=== PATIENT | male | born 1940 | race Caucasian/White ===

== ENCOUNTER → 2017-07-22 | Outpatient (CLI) | payer OTHER, MEDICARE ==
[~2017-07-22] MED LIST: IOHEXOL 350 MG/ML 100 ML (OMNIPAQUE 350) VIAL IV ONE; NS 250 ML (IVPB) BAG IV ONE; RT-ALBUTEROL SULF 2.5 MG/3 ML PRE-MIX VIAL INH ONE
[2017-07-22 09:38] LABS: CREATININE SERUM 1.36 MG/DL (0.60-1.30)
--- NOTE | 2017-07-22 11:11 | Diagnostic Imaging Report ---
PROCEDURE: CT chest with contrast only. TECHNIQUE: Multiple contiguous axial images were obtained through the chest after administration of intravenous contrast. INDICATION: Abnormal outside chest x-ray with questionable mass. The study is performed for further evaluation. COMPARISON: The patient's outside studies are not available for direct comparison. FINDINGS: No axillary lymphadenopathy is detected. No definite hilar or mediastinal lymphadenopathy is detected. No pericardial or pleural fluid is identified. The central airways are unremarkable. There are numerous cavitary masses involving bilateral lower lobes. The largest cavitary mass is posteriorly in the superior segment of the right lower lobe measuring approximately 16 mm. There is a solid, non-cavitary mass more inferiorly in the right lower lobe which appears spiculated and measures 18 mm AP diameter. The upper abdomen is unremarkable. IMPRESSION: Spiculated right lower lobe mass, concerning for primary lung malignancy. There are numerous smaller cavitary masses within bilateral lower lobes, likely on the basis of metastatic disease. No definite hilar or mediastinal lymphadenopathy is detected. Dictated by: Dictated on workstation # [id number]
== END ==
LOC: RT 08:38
PROVIDERS: ATTEND Nurse Practitioner Family
DX: D49.1 Neoplasm of unspecified behavior of respiratory system (principal); R53.83 Other fatigue; Z72.0 Tobacco use
CPT/HCPCS: 36415; 71260; 82565; 84520; 94060; 94726; 94729

== ENCOUNTER → 2017-08-04 | Outpatient (CLI) | payer MEDICARE, OTHER ==
--- NOTE | 2017-08-04 14:40 | Diagnostic Imaging Report ---
INDICATION: Right lower lobe lung mass. Patient does have a history of bladder carcinoma. TECHNIQUE: Patient blood glucose level is 104 mg/dL at the time of the injection. The patient was administered 13 mCi of F-18 FDG intravenously, administered in the right antecubital location. PET imaging was obtained from the top of the skull to the mid thighs. In addition, noncontrast CT imaging was performed for attenuation correction and anatomic correlation. COMPARISON: No prior PET/CT studies are available for comparison. Comparison is made with the recent CT chest study from 07/22/2017. FINDINGS: There is normal symmetric uptake of activity throughout the brain. Imaging through the soft tissues of the neck does demonstrate a focus of hypermetabolism involving the posterior aspect of the left parotid gland with SUV max of 5.7. No other abnormal foci within the neck soft tissues are identified. Intense hypermetabolism is identified in the previously noted spiculated right lower lobe mass noted on recent CT. SUV max is approximately 6. Cephalad to the dominant mass in the right lower lobe is a smaller focus of hypermetabolism posteriorly with SUV max of approximately 4.6. There is also small focus noted in the medial portion of the right middle lobe with 2.6 SUV max. There is a small focus of intense hypermetabolism in the posterior left lower lobe with SUV max of 5.7. Hypermetabolic lymph node in the subcarinal location is seen with SUV max of 5.2. Low-level hypermetabolic node in the right paratracheal location is also seen with SUV max of approximately 2.9. Imaging through the abdomen demonstrates numerous hypermetabolic foci within the liver. The largest is in the inferior right lobe with SUV max of approximately 13. There are multiple additional lesions within the liver. There is also a small hypermetabolic focus in the central retroperitoneum anterior to the aorta with SUV max of approximately 5.3. Physiologic activity within the liver, spleen, and urinary tract is also noted. Imaging through the pelvis does show a small focus of hypermetabolism involving the right posterior aspect of the prostate gland with SUV max value of approximately 6.2, indeterminate. IMPRESSION: 1. Hypermetabolic spiculated mass in the right lower lobe corresponding with the CT abnormality from 07/22/2017. Numerous additional hypermetabolic foci within the pulmonary parenchyma are noted as well. Dominant lesion may represent primary lung neoplasm with additional metastatic lesions present. There are also prominent hypermetabolic nodes in the mediastinum, as described, suspicious for metastatic disease. 2. Numerous hypermetabolic foci throughout the liver, consistent with hepatic metastatic disease. 3. Indeterminate small focus of hypermetabolism involving the left parotid gland. 4. Small hypermetabolic focus involving the right lobe of the prostate. A small prostatic neoplasm cannot be entirely excluded. Dictated by: Dictated on workstation # [id number]
== END ==
LOC: RAD 08:08
PROVIDERS: ATTEND Internal Medicine Critical Care Medicine
DX: C67.9 Malignant neoplasm of bladder, unspecified (principal); D49.1 Neoplasm of unspecified behavior of respiratory system; R93.2 Abnormal findings on diagnostic imaging of liver and biliary tract; F17.200 Nicotine dependence, unspecified, uncomplicated

== ENCOUNTER 2017-08-31 06:18 | Outpatient (CLI) | payer OTHER ==
[~2017-08-31] VITALS: Ht 176.5 cm; Wt 74.8 kg
[2017-08-31] MEDS ORDERED: LOSA100T28 PO (15:47)
[2017-08-31] MEDS ORDERED: AMLO10TA2 PO (15:47)
[2017-08-31] MEDS ORDERED: VARE1TAB22 PO (15:47)
[2017-08-31] MEDS ORDERED: CLOP75TA69 PO (15:47)
[2017-08-31] MEDS ORDERED: ASPI-999 PO (15:47)
[2017-08-31] MEDS ORDERED: ONDA8TAB13 PO (15:47)
[2017-08-31] MEDS ORDERED: OMEP20CA12 PO (15:47)
[2017-08-31] MEDS ORDERED: MORP15TA69 PO (15:47)
[2017-08-31] MEDS ORDERED: ROSU10TA26 PO (15:47)
[2017-08-31] MEDS ORDERED: TRAZ100T92 PO (15:47)
== END 2017-08-31 15:54 ==
LOC: PREOP 06:18
PROVIDERS: ATTEND Internal Medicine Critical Care Medicine
DX: Z01.818 Encounter for other preprocedural examination (principal); C34.90 Malignant neoplasm of unspecified part of unspecified bronchus or lung; R91.8 Other nonspecific abnormal finding of lung field; R59.0 Localized enlarged lymph nodes; R63.0 Anorexia

== ENCOUNTER → 2017-09-04 | Day surgery (SDC) | payer MEDICARE, OTHER ==
[~2017-09-04] VITALS: Ht 176.5 cm; Wt 74.8 kg
[~2017-09-04] MED LIST changes: +AMLO10TA2 PO; +ASPI-999 PO; +CLOP75TA69 PO; +DEXAMETHASONE 10 MG/ML (DECADRON) 1 ML VIAL ONE; +GLYCOPYRROLATE 0.2 MG/ML (ROBINUL) 2 ML VIAL ONE; -IOHEXOL 350 MG/ML 100 ML (OMNIPAQUE 350) VIAL IV ONE; +LACTATED RINGERS 1,000 ML IV PRN; +LIDOCAINE 4% INJ (XYLOCAINE) 5ML AMP INJ ONE; +LIDOCAINE PF 2% 5 ML (XYLOCAINE) VIAL ONE; +LOSA100T28 PO; +MORP15TA69 PO; +NEOSTIGMINE 1 MG/ML 5 ML SYRINGE ONE; -NS 250 ML (IVPB) BAG IV ONE; +OMEP20CA12 PO; +ONDA8TAB13 PO; +ONDANSETRON 4 MG/2 ML (SDV) Z0FRAN IVP PRN; +ONDANSETRON 4 MG/2 ML (SDV) Z0FRAN ONE; +ROCURONIUM 10 MG/ML 5 ML SYRINGE IV ONE; +ROSU10TA26 PO; -RT-ALBUTEROL SULF 2.5 MG/3 ML PRE-MIX VIAL INH ONE; +SEVOFLURANE (ULTANE) 15 ML INHAL SOLN ONE; +TRAZ100T92 PO; +VARE1TAB22 PO; +fentaNYL INJECTION 100 MCG/2 ML AMP ONE; +proPOfol 200 MG/20 ML (DIPRIVAN) VIAL IV ONE
--- OUTSIDE RECORDS SUMMARY | 2017-09-04 06:32 | XMS REPORT | Clinical Summary ---
Author Author Admin, SKYLA Organization [facility] [place] Address Unknown Phone Unavailable Allergies, Adverse Reactions, Alerts Allergy Name Reaction Description Start Date Severity Status Provider HM LORATADINE Critical Active Nata Duran MD HYDROCHLOROTHIAZIDE Critical Active Nata Duran MD Conditions or Problems Problem Name Problem Code Onset Date Status Entry Date Provider Comment Standard Description Annotate Bladder CA Active Nata Duran MD Malignant neoplasm of bladder, part unspecified Hematuria Active Nata Duran MD Hematuria , unspecified Hyperlipidemia Active Paris Rodriguez APRN Other and unspecified hyperlipidemia Hypertension 401.9 Active Paris Rodriguez APRN Unspecified essential hypertension Itching of skin 698.9 Active Paris Rodriguez APRN Unspecified pruritic disorder Insomnia 780.52 Active David Nolasco MD Insomnia, unspecified Urinary incontinence 788.30 Active David Nolasco MD Urinary incontinence, unspecified Fatigue 780.79 Active Paris Rodriguez APRN Other malaise and fatigue Dizziness 780.4 Active Paris Rodriguez APRN Dizziness and giddiness Unsteady gait 781.2 Active Paris Rodriguez APRN Abnormality of gait Anemia 285.9 Active Paris Rodriguez APRN Anemia, unspecified Medication List Medication Instructions Start Date Stop Date Generic Name NDC Status Provider Patient Instruction SPIRONOLACTONE 25 MG ORAL TABLET 1 tablet by mouth daily for blood pressure SPIRONOLACTONE 59011878104 No Longer Active Paris Rodriguez APRN Active AMMONIUM LACTATE 12 % EXTERNAL LOTION use topically as directed for itching/ rash AMMONIUM LACTATE 64976988853 Active Paris Rodriguez CONNIE Active OXYBUTYNIN CHLORIDE 5 MG ORAL TABLET 1 tab po daily as needed for urinary symptoms OXYBUTYNIN CHLORIDE 15706342051 Active Paris Rodriguez QUILLER HAND Active MOMETASONE FUROATE 0.1 % EXTERNAL OINTMENT use as directed MOMETASONE FUROATE 81848272392 Active Paris Michael QUILLER HAND Active ROSUVASTATIN CALCIUM 10 MG ORAL TABLET 1 tab po for cholestrol ROSUVASTATIN CALCIUM 61716760040 Active Paris Michael CONNIE Active TRAZODONE HCL 100 MG ORAL TABLET 1 po qHS for Insomnia TRAZODONE HCL 97569674001 Active Paris Michael CONNIE Active OMEPRAZOLE 20 MG ORAL CAPSULE DELAYED RELEASE 1 cap by mouth daily OMEPRAZOLE 61100877838 Active Paris Michael QUILLER HAND Active CLOPIDOGREL BISULFATE 75 MG ORAL TABLET 1 tab po daily for hx embolism 12/10 CLOPIDOGREL BISULFATE 75036861687 Active Paris Rodriguez QUILLER HAND Active AMLODIPINE BESYLATE 10 MG ORAL TABLET 1 tablet by mouth daily for blood pressure AMLODIPINE BESYLATE 48711908529 Active Paris Michael CONNIE Active LOSARTAN POTASSIUM 100 MG ORAL TABLET 1 pill by mouth daily, for blood pressure LOSARTAN POTASSIUM 44752647438 Active Paris Rodriguez QUILLER HAND Active SPIRONOLACTONE 25 MG ORAL TABLET 1 tablet by mouth daily for blood pressure SPIRONOLACTONE 25 MG ORAL TABLET 315655 SPIRONOLACTONE Inactive Vital Signs Date Name Value Unit Range Description blood pressure, diastolic 58 mm[Hg] BP stevens blood pressure, systolic 162 mm[Hg] BP sys pulse rate E&M 56 /min Heart rate temperature E&M 98.3 [degF] Body temperature weight E&M 179 [lb_av] Weight Measured blood pressure, diastolic 70 mm[Hg] BP stevens blood pressure, systolic 189 mm[Hg] BP sys pulse rate E&M 66 /min Heart rate temperature E&M 97.6 [degF] Body temperature weight E&M 185 [lb_av] Weight Measured blood pressure, diastolic 70 mm[Hg] BP stevens blood pressure, systolic 176 mm[Hg] BP sys height E&M 69.5 [in_us] Bdy height pulse rate E&M 61 /min Heart rate temperature E&M 97 [degF] Body temperature weight E&M 184 [lb_av] Weight Measured blood pressure, diastolic 75 mm[Hg] BP stevens blood pressure, systolic 138 mm[Hg] BP sys height E&M 59.5 [in_us] Bdy height pulse rate E&M 80 /min Heart rate temperature E&M 98.6 [degF] Body temperature weight E&M 182 [lb_av] Weight Measured Diagnostic Results Date Name Value Unit Range Description Lab Report: CBC - Hematology leukocyte count, blood 7.4 10^3/MM^3 10*3/mm3 4.6-10.2 erythrocyte (RBC) count 3.38 10^6/MM^3 10*6/mm3 4.50-6.50 hemoglobin, blood 11.4 g/dL 14.0-18.0 hematocrit, blood 33.1 % 40.0-54.0 mean corpuscular volume, RBC 98 fL 80-97 mean corpuscular hemoglobin, RBC 33.8 pg 27.0-31.2 mean corpuscular hemoglobin concentration, RBC 34.4 G/DL % 31.8- 35.4 red blood cell distribution width 11.1 % 11.6-14.8 platelet count 192 10^3/MM^3 10*3/mm3 142-424 Lab Report: CBC W/DIFF, Comp. Metabolic Panel, HGBA1C, Thyroid Stimulati ... - Chemistry protein, total urine random 3+ mg/dL Negative RBC, urine, dipstick 3+ Negative sodium, serum 141 mmol/L 195-028 9808/11/29 carbon dioxide, venous blood 30.5 mmol/L 21.0-32.0 potassium, serum 4.2 mmol/L 3.5-5.2 chloride, serum 105 mmol/L 98-107 blood glucose 101 mg/dL 65-110 urea nitrogen, blood 23 mg/dL 7-18 creatinine, serum 1.35 mg/dL 0.60-1.30 alanine aminotransferase (SGPT), serum 18 U/L 12-78 aspartate aminotransferase (SGOT), serum 11 U/L 15-37 calcium, serum 7.7 mg/dL 8.5-10.1 bilirubin, serum, total 0.30 mg/dL 0.00-1.00 hemoglobin A1C, blood, as % of total hemoglobin 5.4 % 4.3-6.0 TSH 1.37 m[iU]/mL 0.36-3.74 thyroxine, serum, free 0.86 ng/dL 0.59-1.17 Lab Report: CBC W/DIFF, Comp. Metabolic Panel, HGBA1C, Thyroid Stimulati ... - Hematology leukocyte count, blood 6.6 10^3/MM^3 10*3/mm3 4.6-10.2 neutrophils as percent of blood leukocytes 67.5 % 42.2-75.2 monocytes as percent of blood leukocytes 6.0 % 1.7-9.3 lymphocytes as percent of blood leukocytes 22.2 % 20.5-51.1 erythrocyte (RBC) count 3.45 10^6/MM^3 10*6/mm3 4.50-6.50 hemoglobin, blood 11.6 g/dL 14.0-18.0 hematocrit, blood 34.1 % 40.0-54.0 mean corpuscular volume, RBC 99 fL 80-97 mean corpuscular hemoglobin, RBC 33.6 pg 27.0-31.2 mean corpuscular hemoglobin concentration, RBC 34.0 G/DL % 31.8- 35.4 red blood cell distribution width 12.2 % 11.6-14.8 platelet count 201 10^3/MM^3 10*3/mm3 142-424 Lab Report: CBC W/DIFF, Comp. Metabolic Panel, HGBA1C, Thyroid Stimulati ... - Urinalysis urine color Dark yellow Colorless;Lightyellow;Straw;Yellow appearance, urine Cloudy Clear specific gravity, urine 1.025 1.000-1.030 pH, urine, semiquantitative 6.0 5.0-8.5 urobilinogen, urine, semiquantitative (dipstick) 0.2 E.U./dL Normal leukocyte esterase, urine, by dipstick Negative Negative nitrite, urine, semiquantitative Negative Negative glucose, urine, semiquantitative Negative Negative ketones, urine, by test strip Negative Negative bilirubin, urine Negative Negative Office Visit: CN-hematuria - Chemistry protein, total urine random 2+ mg/dL RBC, urine, dipstick 3+ Office Visit: [facility]-hematuria - Urinalysis ketones, urine, by test strip negative bilirubin, urine negative glucose, urine, semiquantitative negative urine color yellow appearance, urine clear leukocyte esterase, urine, by dipstick negative nitrite, urine, semiquantitative negative urobilinogen, urine, semiquantitative (dipstick) negative protein, urine, semiquantitative (dipstick) negative pH, urine, semiquantitative 5 specific gravity, urine 1.010 urinalysis, routine Clean Catch culture status No Office Visit: [facility]--GET EST.-PER EFREN MD [id number] - Basic LDL target level 100 mg/dL Office Visit: [facility] CHO[facility]--GET EST.-PER EFREN MD [id number]-1-26-17 - Chemistry HDL cholesterol, serum, target level 40 mg/dL triglyceride, target level 150 mg/dL cholesterol, target level 200 mg/dL Encounters Code Encounter Date Provider Facility CPT-32769 Level 4 Est. Patient 16:18:08 PILLOW FILLER Paris Rodriguez [facility] CPT-60430 Level 4 Est. Patient 08:23:02 CDT David Nolasco MD [facility] CPT-32112 Level 4 Est. Patient 07:23:20 CDT Paris Rodriguez [facility] CPT-33215 Level 4 New Patient 14:19:32 CDT Nata Duran MD [facility] Procedures Code Procedure Name Date Entry Date Standard Description CPT-55008 Chest 2V Frontal and Lat - XRAY USE ONLY 14:13:50 PILLOW FILLER CPT-66255 Bladder Washing 10:54:10 CDT CPT-69673 Needle Biopsy - Prostate 14:19:32 CDT CPT-39820 Cystoscopy 14:19:32 CDT
--- OUTSIDE RECORDS SUMMARY | 2017-09-04 06:33 | XMS REPORT | Clinical Summary ---
Author Author Admin, SKYLA Organization [facility] Address Unknown Phone Unavailable Allergies, Adverse Reactions, [...] Active Paris Rodriguez APRN Abnormality of gait Medication List Medication Instructions Start Date Stop Date Generic Name NDC Status Provider Patient Instruction SPIRONOLACTONE 25 MG ORAL TABLET 1 tablet by mouth daily for blood pressure SPIRONOLACTONE 77037905674 No Longer Active Paris Rodriguez APRN Active AMMONIUM LACTATE 12 % EXTERNAL LOTION use topically as directed for itching/ rash AMMONIUM LACTATE 01584642710 Active Paris Michael FIRE ALARM INSPECTOR Active OXYBUTYNIN CHLORIDE 5 MG ORAL TABLET 1 tab po daily as needed for urinary symptoms OXYBUTYNIN CHLORIDE 98967291483 Active Paris Rodriguez APRN Active MOMETASONE FUROATE 0.1 % EXTERNAL OINTMENT use as directed MOMETASONE FUROATE 17745986819 Active Paris Rodriguez FIRE ALARM INSPECTOR Active ROSUVASTATIN CALCIUM 10 MG ORAL TABLET 1 tab po for cholestrol ROSUVASTATIN CALCIUM 34191046004 Active Paris Rodriguez FIRE ALARM INSPECTOR Active TRAZODONE HCL 100 MG ORAL TABLET 1 po qHS for Insomnia TRAZODONE HCL 30515167957 Active Paris Rodriguez APRN Active OMEPRAZOLE 20 MG ORAL CAPSULE DELAYED RELEASE 1 cap by mouth daily OMEPRAZOLE 04685092274 Active Paris Rodriguez FIRE ALARM INSPECTOR Active CLOPIDOGREL BISULFATE 75 MG ORAL TABLET 1 tab po daily for hx embolism 12/10 CLOPIDOGREL BISULFATE 30268201240 Active Paris Rodriguez FIRE ALARM INSPECTOR Active AMLODIPINE BESYLATE 10 MG ORAL TABLET 1 tablet by mouth daily for blood pressure AMLODIPINE BESYLATE 26730291764 Active Paris Rodriguez APRN Active LOSARTAN POTASSIUM 100 MG ORAL TABLET 1 pill by mouth daily, for blood pressure LOSARTAN POTASSIUM 55079258980 Active Paris Rodriguez APRN Active SPIRONOLACTONE 25 MG ORAL TABLET 1 tablet by mouth daily for blood pressure SPIRONOLACTONE 25 MG ORAL TABLET 224090 SPIRONOLACTONE Inactive Vital Signs Date Name Value [...] Value Unit Range Description Lab Report: CBC W/DIFF, Comp. Metabolic Panel, HGBA1C, Thyroid Stimulati ... - Chemistry sodium, serum 141 mmol/L 898-716 6075/11/29 carbon dioxide, venous blood 30.5 mmol/L 21.0-32.0 [...] 0.36-3.74 thyroxine, serum, free 0.86 ng/dL 0.59-1.17 protein, total urine random 3+ mg/dL Negative RBC, urine, dipstick 3+ Negative Lab Report: CBC W/DIFF, Comp. Metabolic Panel, [...] Clean Catch culture status No Office Visit: [facility]--GET EST.-PER [facility]-6-26-17 - Basic LDL target level 100 mg/dL Office Visit: [facility]--GET EST.-PER [facility] [id number] - Chemistry HDL cholesterol, serum, target level 40 mg/dL triglyceride, target level 150 mg/dL cholesterol, target level 200 mg/dL Encounters Code Encounter Date Provider Facility CPT-02637 Level 4 Est. Patient 16:18:08 BACK GRINDER Paris Rodriguez Formerly named [facility] CPT-33488 Level 4 Est. Patient 08:23:02 CDT David Nolasco MD [facility] CPT-83089 Level 4 Est. Patient 07:23:20 CDT Paris Rodriguez Formerly named [facility] CPT-64686 Level 4 New Patient 14:19:32 CDT Nata Duran MD [facility] Procedures Code Procedure Name Date Entry Date Standard Description CPT-42676 Chest 2V Frontal and Lat - XRAY USE ONLY 14:13:50 BACK GRINDER CPT-65252 Bladder Washing 10:54:10 CDT CPT-72322 Needle Biopsy - Prostate 14:19:32 CDT CPT-43612 Cystoscopy 14:19:32 CDT
--- OUTSIDE RECORDS SUMMARY | 2017-09-04 06:33 | XMS REPORT | Clinical Summary ---
Author Author Admin, SKYLA Organization [employer] Address Unknown Phone Unavailable Allergies, Adverse Reactions, Alerts Allergy Name Reaction Description Start Date Severity Status Provider ALDACTONE Critical Active Eliza Chen ENGINEER OF SYSTEM DEVELOPMENT LORATADINE Critical Active Nata Duran MD HYDROCHLOROTHIAZIDE Critical Active Nata Duran MD Conditions or Problems Problem Name Problem Code Onset Date Status Entry Date Provider Comment Standard Description Annotate Bladder CA Active Nata Duran MD Malignant neoplasm of bladder, part unspecified Hematuria Active Nata Duran MD Hematuria , unspecified Hyperlipidemia Active Paris Adamson APRN Other and unspecified hyperlipidemia Hypertension 401.9 Active Paris Adamson APRN Unspecified essential hypertension Itching of skin 698.9 Active Paris Adamson APRN Unspecified pruritic disorder Insomnia 780.52 Active David Nolasco MD Insomnia, unspecified Urinary incontinence 788.30 Active David Nolasco MD Urinary incontinence, unspecified Fatigue 780.79 Active Paris Adamson APRN Other malaise and fatigue Dizziness 780.4 Active Paris Adamson APRN Dizziness and giddiness Unsteady gait 781.2 Active Paris Adamson APRN Abnormality of gait Anemia 285.9 Active Paris Adamson APRN Anemia, unspecified Medication List Medication Instructions Start Date Stop Date Generic Name NDC Status Provider Patient Instruction CHANTIX STARTING MONTH CHAR 0.5 MG X 11 & 1 MG X 42 ORAL TABLET 0.5mg daily for 3 days, then 0.5mg BID for 4 days, then 1mg BID VARENICLINE TARTRATE 53241160413 Active J Jose Duran MD Active DAILY MULTIVITAMIN ORAL CAPSULE 1 tablet by mouth MULTIPLE VITAMINS-MINERALS 82633735223 Active Eliza Chen ENGINEER OF SYSTEM DEVELOPMENT Active [facility] MELATONIN 10 MG ORAL CAPSULE 1 tablet by mouth at bedtime MELATONIN 31910026993 Active Eliza Chen ENGINEER OF SYSTEM DEVELOPMENT Active [facility] LUTEIN CAPSULE 1 tablet once daily LUTEIN CAPS 68664688483 [facility] GLUCOS[facility] 500 MG ORAL CAPSULE 2 capsules BID GLUCOSAMINE SULFATE 60669790223 [facility] Active CARDIOSTEROL 500-32 MG ORAL CAPSULE PHYTOSTEROL ESTERS-FISH OIL 30091473681 Active Eliza Chen ENGINEER OF SYSTEM DEVELOPMENT Active ADULT ASPIRIN LOW STRENGTH 81 MG ORAL TABLET DISINTEGRATING 1 tablet once daily ASPIRIN 62409769682 Active Eliza Chen ENGINEER OF SYSTEM DEVELOPMENT Active ACETAMINOPHEN EXTRA STRENGTH 500 MG ORAL CAPSULE as needed ACETAMINOPHEN 70813303850 [facility] Active OXYBUTYNIN CHLORIDE 5 MG ORAL TABLET 1 tab po daily as needed for urinary symptoms OXYBUTYNIN CHLORIDE 45985459220 No Longer Active Eliza Chen LPN Active AMMONIUM LACTATE 12 % EXTERNAL LOTION use topically as directed for itching/ rash AMMONIUM LACTATE 60753479804 No Longer Active Eliza Chen LPN Active SPIRONOLACTONE 25 MG ORAL TABLET 1 tablet by mouth daily for blood pressure SPIRONOLACTONE 04530779907 No Longer Active Paris Adamson ELECTRONIC DIE MAKER Active MOMETASONE FUROATE 0.1 % EXTERNAL OINTMENT use as directed MOMETASONE FUROATE 66484789013 Active Paris Adamson ELECTRONIC DIE MAKER Active ROSUVASTATIN CALCIUM 10 MG ORAL TABLET 1 tab po for cholestrol ROSUVASTATIN CALCIUM 36463718272 Active Paris Adamson ELECTRONIC DIE MAKER Active TRAZODONE HCL 100 MG ORAL TABLET 1 po qHS for Insomnia TRAZODONE HCL 14305154065 Active Paris Adamson ELECTRONIC DIE MAKER Active OMEPRAZOLE 20 MG ORAL CAPSULE DELAYED RELEASE 1 cap by mouth daily OMEPRAZOLE 25136472568 Active Paris Adamson ELECTRONIC DIE MAKER Active CLOPIDOGREL BISULFATE 75 MG ORAL TABLET 1 tab po daily for hx embolism 12/10 CLOPIDOGREL BISULFATE 78856913639 Active Paris Adamson ELECTRONIC DIE MAKER Active AMLODIPINE BESYLATE 10 MG ORAL TABLET 1 tablet by mouth daily for blood pressure AMLODIPINE BESYLATE 19761968707 Active Paris Adamson ELECTRONIC DIE MAKER Active LOSARTAN POTASSIUM 100 MG ORAL TABLET 1 pill by mouth daily, for blood pressure LOSARTAN POTASSIUM 63613918186 Active Paris Adamson ELECTRONIC DIE MAKER Active SPIRONOLACTONE 25 MG ORAL TABLET 1 tablet by mouth daily for blood pressure SPIRONOLACTONE 25 MG ORAL TABLET 031133 SPIRONOLACTONE Inactive AMMONIUM LACTATE 12 % EXTERNAL LOTION use topically as directed for itching/ rash AMMONIUM LACTATE 12 % EXTERNAL LOTION 450889 AMMONIUM LACTATE Inactive OXYBUTYNIN CHLORIDE 5 MG ORAL TABLET 1 tab po daily as needed for urinary symptoms OXYBUTYNIN CHLORIDE 5 MG ORAL TABLET 976297 OXYBUTYNIN CHLORIDE Inactive Vital Signs Date Name Value Unit Range Description blood pressure, diastolic 62 mm[Hg] BP stevens blood pressure, systolic 172 mm[Hg] BP sys pulse rate E&M 62 /min Heart rate temperature E&M 98.2 [degF] Body temperature weight E&M 175 [lb_av] Weight Measured blood pressure, diastolic 58 mm[Hg] BP stevens [...] dipstick 3+ Negative sodium, serum 141 mmol/L 511-032 5854/11/29 carbon dioxide, venous blood 30.5 mmol/L 21.0-32.0 [...] Clean Catch culture status No Office Visit: [place] [facility]--GET EST.-PER EFREN [place] [id number] - Basic LDL target level 100 mg/dL Office Visit: [place] [id number] - Chemistry HDL cholesterol, serum, target level 40 mg/dL triglyceride, target level 150 mg/dL cholesterol, target level 200 mg/dL Encounters Code Encounter Date Provider Facility CPT-01410 Level 3 Est. Patient 16:10:21 PULMONARY PHYSICIAN Nata Duran MD [facility] CPT-13391 Level 4 Est. Patient 16:18:08 PULMONARY PHYSICIAN Paris Adamson [facility] CPT-50880 Level 4 Est. Patient 08:23:02 CDT David Nolasco MD [facility] CPT-12342 Level 4 Est. Patient 07:23:20 CDT Paris Adamson [facility] CPT-58602 Level 4 New Patient 14:19:32 CDT Nata Duran MD [facility] Procedures Code Procedure Name Date Entry Date Standard Description CPT-87298 Chest 2V Frontal and Lat - XRAY USE ONLY 14:13:50 PULMONARY PHYSICIAN CPT-43511 Bladder Washing 10:54:10 CDT CPT-88079 Needle Biopsy - Prostate 14:19:32 CDT CPT-74302 Cystoscopy 14:19:32 CDT
--- OUTSIDE RECORDS SUMMARY | 2017-09-04 06:33 | XMS REPORT | Clinical Summary ---
Author Author Admin, SKYLA Organization [facility] [employer] Address Unknown Phone Unavailable Allergies, Adverse Reactions, Alerts Allergy Name Reaction Description Start Date Severity Status Provider ALDACTONE Critical Active Eliza Chen LPN HM LORATADINE Critical Active Nata Duran MD [...] Generic Name NDC Status Provider Patient Instruction DAILY MULTIVITAMIN ORAL CAPSULE 1 tablet by mouth MULTIPLE VITAMINS-MINERALS 46429616589 Active Eliza Chen LPN Active [facility] MELATONIN 10 MG ORAL CAPSULE 1 tablet by mouth at bedtime MELATONIN 83621148678 Active Eliza Chen LPN Active [facility] LUTEIN CAPSULE 1 tablet once daily LUTEIN CAPS 10711172003 Active Eliza Chen WIRELESS DEVELOPMENT MANAGER Active GLUCOSAMINE 500 MG ORAL CAPSULE 2 capsules BID GLUCOSAMINE SULFATE 35087702109 Active Eliza Chen LPN Active CARDIOSTEROL 500-32 MG ORAL CAPSULE PHYTOSTEROL ESTERS-FISH OIL 67352548113 Active Eliza Chen LPN Active ADULT ASPIRIN LOW STRENGTH 81 MG ORAL TABLET DISINTEGRATING 1 tablet once daily ASPIRIN 35812652313 Active Eliza Chen WIRELESS DEVELOPMENT MANAGER Active ACETAMINOPHEN EXTRA STRENGTH 500 MG ORAL CAPSULE as needed ACETAMINOPHEN 39599017747 Active Eliza Chen WIRELESS DEVELOPMENT MANAGER Active OXYBUTYNIN CHLORIDE 5 MG ORAL TABLET 1 tab po daily as needed for urinary symptoms OXYBUTYNIN CHLORIDE 61631469094 No Longer Active Eliza Chen LPN Active AMMONIUM LACTATE 12 % EXTERNAL LOTION use topically as directed for itching/ rash AMMONIUM LACTATE 52421883071 No Longer Active Eliza Chen LPN Active SPIRONOLACTONE 25 MG ORAL TABLET 1 tablet by mouth daily for blood pressure SPIRONOLACTONE 38578471547 No Longer Active Paris Rodriguez APRN Active MOMETASONE FUROATE 0.1 % EXTERNAL OINTMENT use as directed MOMETASONE FUROATE 21977816977 Active Paris Rodriguez APRN Active ROSUVASTATIN CALCIUM 10 MG ORAL TABLET 1 tab po for cholestrol ROSUVASTATIN CALCIUM 39269434381 Active Paris Rodriguez APRN Active TRAZODONE HCL 100 MG ORAL TABLET 1 po qHS for Insomnia TRAZODONE HCL 56384038523 Active Paris Rodriguez APRN Active OMEPRAZOLE 20 MG ORAL CAPSULE DELAYED RELEASE 1 cap by mouth daily OMEPRAZOLE 28272245720 Active Paris Rodriguez APRN Active CLOPIDOGREL BISULFATE 75 MG ORAL TABLET 1 tab po daily for hx embolism 12/10 CLOPIDOGREL BISULFATE 35232832549 Active Paris Rodriguez APRN Active AMLODIPINE BESYLATE 10 MG ORAL TABLET 1 tablet by mouth daily for blood pressure AMLODIPINE BESYLATE 91825777684 Active Paris Rodriguez SALESFORCE SPECIALIST Active LOSARTAN POTASSIUM 100 MG ORAL TABLET 1 pill by mouth daily, for blood pressure LOSARTAN POTASSIUM 82584289700 Active Paris Rodriguez SALESFORCE SPECIALIST Active SPIRONOLACTONE 25 MG ORAL TABLET 1 tablet by mouth daily for blood pressure SPIRONOLACTONE 25 MG ORAL TABLET 386496 SPIRONOLACTONE Inactive AMMONIUM LACTATE 12 % EXTERNAL LOTION use topically as directed for itching/ rash AMMONIUM LACTATE 12 % EXTERNAL LOTION 541153 AMMONIUM LACTATE Inactive OXYBUTYNIN CHLORIDE 5 MG ORAL TABLET 1 tab po daily as needed for urinary symptoms OXYBUTYNIN CHLORIDE 5 MG ORAL TABLET 335394 OXYBUTYNIN CHLORIDE Inactive Vital Signs Date Name [...] dipstick 3+ Negative sodium, serum 141 mmol/L 485-505 6514/11/29 carbon dioxide, venous blood 30.5 mmol/L 21.0-32.0 [...] Clean Catch culture status No Office Visit: [place] [employer]--GET EST.-PER [facility]-6-26-17 - Basic LDL target level 100 mg/dL Office Visit: [place] [employer]--GET EST.-PER [facility] [id number] - Chemistry HDL cholesterol, serum, target level 40 mg/dL triglyceride, target level 150 mg/dL cholesterol, target level 200 mg/dL Encounters Code Encounter Date Provider Facility CPT-01806 Level 4 Est. 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 Patient 08:23:02 CDT David Nolasco MD [facility] CPT-36027 Level 4 Est. Patient 07:23:20 CDT Paris Rodriguez APRN [facility] CPT-18593 Level 4 New Patient 14:19:32 CDT Nata Duran MD [facility] Procedures Code Procedure Name Date Entry Date Standard Description CPT-04232 Chest 2V Frontal and Lat - XRAY USE ONLY 14:13:50 PURCHASING BUYER CPT-00191 Bladder Washing 10:54:10 CDT CPT-56050 Needle Biopsy - Prostate 14:19:32 CDT CPT-23878 Cystoscopy 14:19:32 CDT
--- OUTSIDE RECORDS SUMMARY | 2017-09-04 06:33 | XMS REPORT | Clinical Summary ---
Author Author Admin, SKYLA Organization [employer] Address Unknown Phone Unavailable Allergies, Adverse Reactions, [...] by mouth daily for blood pressure SPIRONOLACTONE 23328491780 No Longer Active Paris Rodriguez APRN Active AMMONIUM LACTATE 12 % EXTERNAL LOTION use topically as directed for itching/ rash AMMONIUM LACTATE 26590515040 Active Paris Michael OIL OPERATOR Active OXYBUTYNIN CHLORIDE 5 MG ORAL TABLET 1 tab po daily as needed for urinary symptoms OXYBUTYNIN CHLORIDE 21187208350 Active Paris Rodriguez APRN Active MOMETASONE FUROATE 0.1 % EXTERNAL OINTMENT use as directed MOMETASONE FUROATE 34750515134 Active Paris Rodriguez OIL OPERATOR Active ROSUVASTATIN CALCIUM 10 MG ORAL TABLET 1 tab po for cholestrol ROSUVASTATIN CALCIUM 30655932517 Active Paris Rodriguez OIL OPERATOR Active TRAZODONE HCL 100 MG ORAL TABLET 1 po qHS for Insomnia TRAZODONE HCL 16951916078 Active Paris Rodriguez APRN Active OMEPRAZOLE 20 MG ORAL CAPSULE DELAYED RELEASE 1 cap by mouth daily OMEPRAZOLE 47837352083 Active Paris Rodriguez OIL OPERATOR Active CLOPIDOGREL BISULFATE 75 MG ORAL TABLET 1 tab po daily for hx embolism 12/10 CLOPIDOGREL BISULFATE 71085295904 Active Paris Rodriguez OIL OPERATOR Active AMLODIPINE BESYLATE 10 MG ORAL TABLET 1 tablet by mouth daily for blood pressure AMLODIPINE BESYLATE 23580018930 Active Paris Rodriguez APRN Active LOSARTAN POTASSIUM 100 MG ORAL TABLET 1 pill by mouth daily, for blood pressure LOSARTAN POTASSIUM 12158365470 Active Paris Rodriguez APRN Active SPIRONOLACTONE 25 MG ORAL TABLET 1 tablet by mouth daily for blood pressure SPIRONOLACTONE 25 MG ORAL TABLET 971585 SPIRONOLACTONE Inactive Vital Signs Date Name Value [...] ... - Chemistry sodium, serum 141 mmol/L 838-387 3562/11/29 carbon dioxide, venous blood 30.5 mmol/L 21.0-32.0 [...] Clean Catch culture status No Office Visit: [facility]--GET EST.-PER [facility]-6-26-17 - Basic LDL target level 100 mg/dL Office Visit: [facility]--GET EST.-PER [id number]-1-26-17 - Chemistry HDL cholesterol, serum, target level 40 mg/dL triglyceride, target level 150 mg/dL cholesterol, target level 200 mg/dL Encounters Code Encounter Date Provider Facility CPT-37129 Level 4 Est. 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 Patient 08:23:02 CDT David Nolasco MD [facility] CPT-61213 Level 4 Est. Patient 07:23:20 CDT Paris Rodriguez [facility] CPT-76190 Level 4 New Patient 14:19:32 CDT Nata Duran MD [facility] Procedures Code Procedure Name Date Entry Date Standard Description CPT-12216 Chest 2V Frontal and Lat - XRAY USE ONLY 14:13:50 SPANISH INTERPRETER/TRANSLATOR CPT-99591 Bladder Washing 10:54:10 CDT CPT-26995 Needle Biopsy - Prostate 14:19:32 CDT CPT-02106 Cystoscopy 14:19:32 CDT
--- OUTSIDE RECORDS SUMMARY | 2017-09-04 06:34 | XMS REPORT | Clinical Summary ---
Author Author Admin, SKYLA Organization [employer] Address Unknown Phone Unavailable Allergies, Adverse Reactions, [...] Active David Nolasco MD Urinary incontinence, unspecified Medication List Medication Instructions Start Date Stop Date Generic Name NDC Status Provider Patient Instruction SPIRONOLACTONE 25 MG TAB 1 tablet by mouth daily for blood pressure SPIRONOLACTONE 81959761680 No Longer Active Paris Rodriguez APRN Active AMMONIUM LACTATE 12 % EXT LOTN use topically as directed for itching/rash AMMONIUM LACTATE 09408940592 Active Paris Rodriguez APRN Active OXYBUTYNIN CHLORIDE 5 MG TABS 1 tab po daily as needed for urinary symptoms OXYBUTYNIN CHLORIDE 02982741358 Active Paris Rodriguez APRN Active MOMETASONE FUROATE 0.1 % EXT OINT use as directed MOMETASONE FUROATE 44353553049 Active Paris Michael DIRECTOR OF MEDICAL EDUCATION Active ROSUVASTATIN CALCIUM 10 MG ORAL TABS 1 tab po for cholestrol ROSUVASTATIN CALCIUM 18018802428 Active Paris Rodriguez APRN Active TRAZODONE HCL 100 MG TAB 1 po qHS for Insomnia TRAZODONE HCL 21304446012 Active Paris Rodriguez APRN Active OMEPRAZOLE 20 MG CPDR 1 cap by mouth daily OMEPRAZOLE 18357778403 Active Paris Rodriguez APRN Active CLOPIDOGREL BISULFATE 75 MG ORAL TABS 1 tab po daily for hx embolism CLOPIDOGREL BISULFATE 53768577628 Active Paris Rodriguez APRN Active AMLODIPINE BESYLATE 10 MG TABS 1 tablet by mouth daily for blood pressure AMLODIPINE BESYLATE 20294781232 Active Paris Rodriguez APRN Active LOSARTAN POTASSIUM 100 MG TABS 1 pill by mouth daily, for blood pressure 2016 LOSARTAN POTASSIUM 73015070683 Active Paris Rodriguez APRN Active SPIRONOLACTONE 25 MG TAB 1 tablet by mouth daily for blood pressure SPIRONOLACTONE 25 MG TAB 773840 SPIRONOLACTONE Inactive Vital Signs Date Name Value Unit Range Description blood pressure, diastolic 70 mm[Hg] BP stevens [...] Results Date Name Value Unit Range Description Office Visit: [facility]-hematuria - Chemistry RBC, urine, dipstick 3+ protein, total urine random 2+ mg/dL Office Visit: [facility]-hematuria - Urinalysis pH, urine, semiquantitative 5 specific gravity, urine 1.010 urinalysis, routine Clean Catch culture status No ketones, urine, by test strip negative bilirubin, urine negative glucose, urine, semiquantitative negative urine color yellow appearance, urine clear leukocyte esterase, urine, by dipstick negative nitrite, urine, semiquantitative negative urobilinogen, urine, semiquantitative (dipstick) negative protein, urine, semiquantitative (dipstick) negative Office Visit: [facility]--GET EST.-PER [facility]-6-26-17 - Basic LDL target level 100 mg/dL Office Visit: [facility]--GET EST.-PER [facility]-6-26-17 - Chemistry HDL cholesterol, serum, target level 40 mg/dL triglyceride, target level 150 mg/dL cholesterol, target level 200 mg/dL Encounters Code Encounter Date Provider Facility CPT-75857 Level 4 Est. Patient 08:23:02 CDT David Nolasco MD [facility] CPT-78452 Level 4 Est. Patient 07:23:20 CDT Paris Rodriguez APRN [facility] CPT-55097 Level 4 New Patient 14:19:32 CDT Nata Duran MD [facility] Procedures Code Procedure Name Date Entry Date Standard Description CPT-49389 Bladder Washing 10:54:10 CDT CPT-90651 Needle Biopsy - Prostate 14:19:32 T CPT-59458 Cystoscopy 14:19:32 [facility]
--- OUTSIDE RECORDS SUMMARY | 2017-09-04 06:34 | XMS REPORT | Clinical Summary ---
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 Nata Duran MD Unspecified disorder of kidney and ureter Medication List Medication Instructions Start Date Stop Date Generic Name NDC Status Provider Patient Instruction CHANTIX STARTING MONTH CHAR 0.5 MG X 11 & 1 MG X 42 ORAL TABLET 0.5mg daily for 3 days, then 0.5mg BID for 4 days, then 1mg BID VARENICLINE TARTRATE 24637614690 Active Nata Duran MD Active DAILY MULTIVITAMIN ORAL CAPSULE 1 tablet by mouth MULTIPLE VITAMINS-MINERALS 13768001168 Active Eliza Chen VISUAL DEVELOPER Active [facility] MELATONIN 10 MG ORAL CAPSULE 1 tablet by mouth at bedtime MELATONIN 68938817588 Active Eliza Chen VISUAL DEVELOPER Active [facility] LUTEIN CAPSULE 1 tablet once daily LUTEIN CAPS 84601455907 Active Eliza Chen VISUAL DEVELOPER Active GLUCOSAMINE 500 MG ORAL CAPSULE 2 capsules BID GLUCOSAMINE SULFATE 14583902369 [facility] CARDIOSTEROL 500-32 MG ORAL CAPSULE PHYTOSTEROL ESTERS-FISH OIL 29769933484 Active Eliza Chen VISUAL DEVELOPER Active ADULT ASPIRIN LOW STRENGTH 81 MG ORAL TABLET DISINTEGRATING 1 tablet once daily ASPIRIN 58774211274 Active [facility]iza [facility] Active ACETAMINOPHEN EXTRA STRENGTH 500 MG ORAL CAPSULE as needed ACETAMINOPHEN 87834249056 Active Eliza Chen VISUAL DEVELOPER Active OXYBUTYNIN CHLORIDE 5 MG ORAL TABLET 1 tab po daily as needed for urinary symptoms OXYBUTYNIN CHLORIDE 28752613006 No Longer Active Eliza Chen VISUAL DEVELOPER Active AMMONIUM LACTATE 12 % EXTERNAL LOTION use topically as directed for itching/ rash AMMONIUM LACTATE 65693491344 No Longer Active Eliza Chen VISUAL DEVELOPER Active SPIRONOLACTONE 25 MG ORAL TABLET 1 tablet by mouth daily for blood pressure SPIRONOLACTONE 87066865948 No Longer Active Paris Adamson CARD PLACER Active MOMETASONE FUROATE 0.1 % EXTERNAL OINTMENT use as directed MOMETASONE FUROATE 06300841067 Active Paris Arell CARD PLACER Active ROSUVASTATIN CALCIUM 10 MG ORAL TABLET 1 tab po for cholestrol ROSUVASTATIN CALCIUM 37588334238 Active Paris Sanchezll CARD PLACER Active TRAZODONE HCL 100 MG ORAL TABLET 1 po qHS for Insomnia TRAZODONE HCL 54046746826 Active Paris Adamson CARD PLACER Active OMEPRAZOLE 20 MG ORAL CAPSULE DELAYED RELEASE 1 cap by mouth daily OMEPRAZOLE 84995757876 Active Paris Adamson CARD PLACER Active CLOPIDOGREL BISULFATE 75 MG ORAL TABLET 1 tab po daily for hx embolism 12/10 CLOPIDOGREL BISULFATE 59070651376 Active Paris Sanchezll CARD PLACER Active AMLODIPINE BESYLATE 10 MG ORAL TABLET 1 tablet by mouth daily for blood pressure AMLODIPINE BESYLATE 33761531797 Active Paris Danielll CARD PLACER Active LOSARTAN POTASSIUM 100 MG ORAL TABLET 1 pill by mouth daily, for blood pressure LOSARTAN POTASSIUM 50286995646 Active Paris Adamson CARD PLACER Active SPIRONOLACTONE 25 MG ORAL TABLET 1 tablet by mouth daily for blood pressure SPIRONOLACTONE 25 MG ORAL TABLET 452596 SPIRONOLACTONE Inactive AMMONIUM LACTATE 12 % EXTERNAL LOTION use topically as directed for itching/ rash AMMONIUM LACTATE 12 % EXTERNAL LOTION 893080 AMMONIUM LACTATE Inactive OXYBUTYNIN CHLORIDE 5 MG ORAL TABLET 1 tab po daily as needed for urinary symptoms OXYBUTYNIN CHLORIDE 5 MG ORAL TABLET 765759 OXYBUTYNIN CHLORIDE Inactive Vital Signs Date Name Value Unit Range Description blood pressure, diastolic 46 mm[Hg] BP stevens blood pressure, systolic 165 mm[Hg] BP sys pulse rate E&M 66 /min Heart rate temperature E&M 98.4 [degF] Body temperature weight E&M 170 [lb_av] Weight Measured blood pressure, diastolic 62 mm[Hg] BP stevens [...] dipstick 3+ Negative sodium, serum 141 mmol/L 909-765 5390/11/29 carbon dioxide, venous blood 30.5 mmol/L 21.0-32.0 [...] Clean Catch culture status No Office Visit: [place] [facility] - Basic LDL target level 100 mg/dL Office Visit: [place] [facility]--GET EST.-PER [facility]-6-26-17 - Chemistry HDL cholesterol, serum, target level 40 mg/dL triglyceride, target level 150 mg/dL cholesterol, target level 200 mg/dL Encounters Code Encounter Date Provider Facility CPT-16204 Level 3 Est. 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 Patient 16:10:21 WELDER PIPE MAKING Nata Duran MD [facility] CPT-76717 Level 4 Est. 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 Patient 08:23:02 CDT David Nolasco MD [facility] CPT-83914 Level 4 Est. Patient 07:23:20 CDT Paris Adamson [facility] CPT-96645 Level 4 New Patient 14:19:32 CDT Nata Duran MD [facility] Procedures Code Procedure Name Date Entry Date Standard Description CPT-85103 Chest 2V Frontal and Lat - XRAY USE ONLY 14:13:50 [employer] CPT-73935 Bladder Washing 10:54:10 CDT CPT-38203 Needle Biopsy - Prostate 14:19:32 CDT CPT-25544 Cystoscopy 14:19:32 CDT
--- OUTSIDE RECORDS SUMMARY | 2017-09-04 06:34 | XMS REPORT | Clinical Summary ---
Author Author Admin, SKYLA Organization [employer] Address Unknown Phone Unavailable Allergies, Adverse Reactions, [...] by mouth daily for blood pressure SPIRONOLACTONE 59582259089 No Longer Active Paris Rodriguez APRN Active AMMONIUM LACTATE 12 % EXTERNAL LOTION use topically as directed for itching/ rash AMMONIUM LACTATE 94367049565 Active Paris Michael BAR TACKER Active OXYBUTYNIN CHLORIDE 5 MG ORAL TABLET 1 tab po daily as needed for urinary symptoms OXYBUTYNIN CHLORIDE 33765059513 Active Paris Rodriguez APRN Active MOMETASONE FUROATE 0.1 % EXTERNAL OINTMENT use as directed MOMETASONE FUROATE 29582838258 Active Paris Rodriguez APRN Active ROSUVASTATIN CALCIUM 10 MG ORAL TABLET 1 tab po for cholestrol ROSUVASTATIN CALCIUM 06507771407 Active Paris Rodriguez APRN Active TRAZODONE HCL 100 MG ORAL TABLET 1 po qHS for Insomnia TRAZODONE HCL 46085825793 Active Paris Rodriguez APRN Active OMEPRAZOLE 20 MG ORAL CAPSULE DELAYED RELEASE 1 cap by mouth daily OMEPRAZOLE 37519168032 Active Paris Rodriguez APRN Active CLOPIDOGREL BISULFATE 75 MG ORAL TABLET 1 tab po daily for hx embolism 12/10 CLOPIDOGREL BISULFATE 10900813688 Active Paris Rodriguez APRN Active AMLODIPINE BESYLATE 10 MG ORAL TABLET 1 tablet by mouth daily for blood pressure AMLODIPINE BESYLATE 44608045223 Active Paris Rodriguez APRN Active LOSARTAN POTASSIUM 100 MG ORAL TABLET 1 pill by mouth daily, for blood pressure LOSARTAN POTASSIUM 01017389486 Active Paris Rodriguez APRN Active SPIRONOLACTONE 25 MG ORAL TABLET 1 tablet by mouth daily for blood pressure SPIRONOLACTONE 25 MG ORAL TABLET 148841 SPIRONOLACTONE Inactive Vital Signs Date Name Value [...] ... - Chemistry sodium, serum 141 mmol/L 152-186 5023/11/29 carbon dioxide, venous blood 30.5 mmol/L 21.0-32.0 [...] Clean Catch culture status No Office Visit: [place] [facility] [employer]--GET EST.-PER [facility]-6-26-17 - Basic LDL target level 100 mg/dL Office Visit: [place] [facility] [employer]--GET EST.-PER [facility]-6-26-17 - Chemistry HDL cholesterol, serum, target level 40 mg/dL triglyceride, target level 150 mg/dL cholesterol, target level 200 mg/dL Encounters Code Encounter Date Provider Facility CPT-60580 Level 4 Est. Patient 08:23:02 CDT David Nolasco MD [facility] CPT-38486 Level 4 Est. 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
--- OUTSIDE RECORDS SUMMARY | 2017-09-04 06:35 | XMS REPORT | Clinical Summary ---
Author Author Admin, SKYLA Organization [employer] Address Unknown Phone Unavailable Allergies, Adverse Reactions, Alerts Allergy Name Reaction Description Start Date Severity Status Provider HM LORATADINE Critical Active Nata Duran MD HYDROCHLOROTHIAZIDE Critical Active Nata Duran MD Conditions or Problems Problem Name Problem Code Onset Date Status Entry Date Provider Comment Standard Description Annotate Bladder CA Active Nata Duran MD Malignant neoplasm of bladder, part unspecified Hematuria Active Nata Duarn MD Hematuria , unspecified Hyperlipidemia Active Paris Rodriguez APRN Other and unspecified hyperlipidemia Hypertension 401.9 Active Paris Rodriguez APRN Unspecified essential hypertension Itching of skin 698.9 Active Paris Rodriguez APRN Unspecified pruritic disorder Medication List Medication Instructions Start Date Stop Date Generic Name NDC Status Provider Patient Instruction SPIRONOLACTONE 25 MG TAB 1 tablet by mouth daily for blood pressure SPIRONOLACTONE 38640467182 No Longer Active Paris Rodriguez APRN Active AMMONIUM LACTATE 12 % EXT LOTN use topically as directed for itching/rash AMMONIUM LACTATE 21766444974 Active Paris Rodriguez APRN Active OXYBUTYNIN CHLORIDE 5 MG TABS 1 tab po daily as needed for urinary symptoms OXYBUTYNIN CHLORIDE 38278649999 Active Paris Rodriguez APRN Active MOMETASONE FUROATE 0.1 % EXT OINT use as directed MOMETASONE FUROATE 30412168688 Active Paris Rodriguez APRN Active ROSUVASTATIN CALCIUM 10 MG ORAL TABS 1 tab po for cholestrol ROSUVASTATIN CALCIUM 65292763026 Active Paris Rodriguez APRN Active TRAZODONE HCL 100 MG TAB 1 po qHS for Insomnia TRAZODONE HCL 37764479657 Active Paris Rodriguez APRN Active OMEPRAZOLE 20 MG CPDR 1 cap by mouth daily OMEPRAZOLE 01380836494 Active Paris Rodriguez APRN Active CLOPIDOGREL BISULFATE 75 MG ORAL TABS 1 tab po daily for hx embolism CLOPIDOGREL BISULFATE 22023015038 Active Paris Rodriguez APRN Active AMLODIPINE BESYLATE 10 MG TABS 1 tablet by mouth daily for blood pressure AMLODIPINE BESYLATE 59017601026 Active Paris Rodriguez APRN Active LOSARTAN POTASSIUM 100 MG TABS 1 pill by mouth daily, for blood pressure 2016 LOSARTAN POTASSIUM 57466481531 Active Paris Rodriguez APRN Active SPIRONOLACTONE 25 MG TAB 1 tablet by mouth daily for blood pressure SPIRONOLACTONE 25 MG TAB 540227 SPIRONOLACTONE Inactive Vital Signs Date Name Value [...] (dipstick) negative protein, urine, semiquantitative (dipstick) negative Encounters Code Encounter Date Provider Facility CPT-31664 Level 4 Est. Patient 07:23:20 CDT Paris Rodriguez APRN [facility] CPT-51718 Level 4 New Patient 14:19:32 CDT Nata Duran MD [facility] Procedures Code Procedure Name Date Entry Date Standard Description CPT-57452 Bladder Washing 10:54:10 CDT CPT-24537 Needle Biopsy - Prostate 14:19:32 CDT CPT-38862 Cystoscopy 14:19:32 CDT
--- OUTSIDE RECORDS SUMMARY | 2017-09-04 06:35 | XMS REPORT | Clinical Summary ---
Author Author Admin, SKYLA Organization [email or web address] Address Unknown Phone Unavailable Allergies, Adverse Reactions, [...] by mouth daily for blood pressure SPIRONOLACTONE 48742007766 No Longer Active Paris Rodriguez APRN Active AMMONIUM LACTATE 12 % EXTERNAL LOTION use topically as directed for itching/ rash AMMONIUM LACTATE 20268575046 Active Paris Michael REPRODUCTION TECHNICIAN Active OXYBUTYNIN CHLORIDE 5 MG ORAL TABLET 1 tab po daily as needed for urinary symptoms OXYBUTYNIN CHLORIDE 39113874513 Active Paris Rodriguez APRN Active MOMETASONE FUROATE 0.1 % EXTERNAL OINTMENT use as directed MOMETASONE FUROATE 32007639338 Active Paris Rodriguez REPRODUCTION TECHNICIAN Active ROSUVASTATIN CALCIUM 10 MG ORAL TABLET 1 tab po for cholestrol ROSUVASTATIN CALCIUM 28482247250 Active Paris Rodriguez REPRODUCTION TECHNICIAN Active TRAZODONE HCL 100 MG ORAL TABLET 1 po qHS for Insomnia TRAZODONE HCL 36160674491 Active Paris Rodriguez APRN Active OMEPRAZOLE 20 MG ORAL CAPSULE DELAYED RELEASE 1 cap by mouth daily OMEPRAZOLE 10680734428 Active Paris Rodriguez REPRODUCTION TECHNICIAN Active CLOPIDOGREL BISULFATE 75 MG ORAL TABLET 1 tab po daily for hx embolism 12/10 CLOPIDOGREL BISULFATE 12737882593 Active Paris Rodriguez REPRODUCTION TECHNICIAN Active AMLODIPINE BESYLATE 10 MG ORAL TABLET 1 tablet by mouth daily for blood pressure AMLODIPINE BESYLATE 21896034393 Active Paris Rodriguez APRN Active LOSARTAN POTASSIUM 100 MG ORAL TABLET 1 pill by mouth daily, for blood pressure LOSARTAN POTASSIUM 50010245735 Active Paris Rodriguez APRN Active SPIRONOLACTONE 25 MG ORAL TABLET 1 tablet by mouth daily for blood pressure SPIRONOLACTONE 25 MG ORAL TABLET 761249 SPIRONOLACTONE Inactive Vital Signs Date Name Value [...] ... - Chemistry sodium, serum 141 mmol/L 609-560 6267/11/29 carbon dioxide, venous blood 30.5 mmol/L 21.0-32.0 [...] Clean Catch culture status No Office Visit: [facility]--GET EST.-PER [facility]-6-26-17 - Basic LDL target level 100 mg/dL Office Visit: [facility]--GET EST.-PER [facility]-0-26-17 - Chemistry HDL cholesterol, serum, target level 40 mg/dL triglyceride, target level 150 mg/dL cholesterol, target level 200 mg/dL Encounters Code Encounter Date Provider Facility CPT-29733 Level 4 Est. 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 Patient 08:23:02 CDT David Nolasco MD [facility] CPT-70912 Level 4 Est. Patient 07:23:20 CDT Paris Rodriguez [facility] CPT-38829 Level 4 New Patient 14:19:32 CDT Nata Duran MD [facility] Procedures Code Procedure Name Date Entry Date Standard Description CPT-47624 Chest 2V Frontal and Lat - XRAY USE ONLY 14:13:50 INTEGRATED CIRCUIT FABRICATOR CPT-80980 Bladder Washing 10:54:10 CDT CPT-43854 Needle Biopsy - Prostate 14:19:32 CDT CPT-26758 Cystoscopy 14:19:32 CDT
--- OUTSIDE RECORDS SUMMARY | 2017-09-04 06:35 | XMS REPORT | Clinical Summary ---
Author Author Admin, SKYLA Organization [employer] Address Unknown Phone Unavailable Allergies, Adverse Reactions, [...] by mouth daily for blood pressure SPIRONOLACTONE 40648071673 No Longer Active Paris Rodriguez APRN Active AMMONIUM LACTATE 12 % EXTERNAL LOTION use topically as directed for itching/ rash AMMONIUM LACTATE 02659610085 Active Paris Michael POSTAL SUPERINTENDENT Active OXYBUTYNIN CHLORIDE 5 MG ORAL TABLET 1 tab po daily as needed for urinary symptoms OXYBUTYNIN CHLORIDE 05960807112 Active Paris Rodriguez APRN Active MOMETASONE FUROATE 0.1 % EXTERNAL OINTMENT use as directed MOMETASONE FUROATE 97714049940 Active Paris Rodriguez POSTAL SUPERINTENDENT Active ROSUVASTATIN CALCIUM 10 MG ORAL TABLET 1 tab po for cholestrol ROSUVASTATIN CALCIUM 06262807681 Active Paris Rodriguez POSTAL SUPERINTENDENT Active TRAZODONE HCL 100 MG ORAL TABLET 1 po qHS for Insomnia TRAZODONE HCL 57586697735 Active Paris Rodriguez APRN Active OMEPRAZOLE 20 MG ORAL CAPSULE DELAYED RELEASE 1 cap by mouth daily OMEPRAZOLE 14455571763 Active Paris Rodriguez POSTAL SUPERINTENDENT Active CLOPIDOGREL BISULFATE 75 MG ORAL TABLET 1 tab po daily for hx embolism 12/10 CLOPIDOGREL BISULFATE 88823322186 Active Paris Rodriguez POSTAL SUPERINTENDENT Active AMLODIPINE BESYLATE 10 MG ORAL TABLET 1 tablet by mouth daily for blood pressure AMLODIPINE BESYLATE 93742033638 Active Paris Rodriguez APRN Active LOSARTAN POTASSIUM 100 MG ORAL TABLET 1 pill by mouth daily, for blood pressure LOSARTAN POTASSIUM 61491209558 Active Paris Rodriguez APRN Active SPIRONOLACTONE 25 MG ORAL TABLET 1 tablet by mouth daily for blood pressure SPIRONOLACTONE 25 MG ORAL TABLET 795497 SPIRONOLACTONE Inactive Vital Signs Date Name Value [...] ... - Chemistry sodium, serum 141 mmol/L 039-824 9574/11/29 carbon dioxide, venous blood 30.5 mmol/L 21.0-32.0 [...] Clean Catch culture status No Office Visit: [facility]--GET EST.-PER [facility]-6-26-17 - Basic LDL target level 100 mg/dL Office Visit: [facility]--GET EST.-PER [id number]-9-26-17 - Chemistry HDL cholesterol, serum, target level 40 mg/dL triglyceride, target level 150 mg/dL cholesterol, target level 200 mg/dL Encounters Code Encounter Date Provider Facility CPT-45810 Level 4 Est. 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 Patient 08:23:02 CDT David Nolasco MD [facility] CPT-00895 Level 4 Est. Patient 07:23:20 CDT Paris Rodriguez [facility] CPT-16210 Level 4 New Patient 14:19:32 CDT Nata Duran MD [facility] Procedures Code Procedure Name Date Entry Date Standard Description CPT-79791 Chest 2V Frontal and Lat - XRAY USE ONLY 14:13:50 INDIGO MIXER CPT-98560 Bladder Washing 10:54:10 CDT CPT-91341 Needle Biopsy - Prostate 14:19:32 CDT CPT-88849 Cystoscopy 14:19:32 CDT
--- OUTSIDE RECORDS SUMMARY | 2017-09-04 06:35 | XMS REPORT | Clinical Summary ---
Author Author Admin, SKYLA Organization [employer] Address Unknown Phone Unavailable Allergies, Adverse Reactions, [...] by mouth daily for blood pressure SPIRONOLACTONE 25484780866 No Longer Active Paris Rodriguez APRN Active AMMONIUM LACTATE 12 % EXTERNAL LOTION use topically as directed for itching/ rash AMMONIUM LACTATE 42880161136 Active Paris Michael CHARACTER ARTIST Active OXYBUTYNIN CHLORIDE 5 MG ORAL TABLET 1 tab po daily as needed for urinary symptoms OXYBUTYNIN CHLORIDE 51758636220 Active Paris Rodriguez APRN Active MOMETASONE FUROATE 0.1 % EXTERNAL OINTMENT use as directed MOMETASONE FUROATE 84503191642 Active Paris Rodriguez APRN Active ROSUVASTATIN CALCIUM 10 MG ORAL TABLET 1 tab po for cholestrol ROSUVASTATIN CALCIUM 82569203357 Active Prais Rodriguez APRN Active TRAZODONE HCL 100 MG ORAL TABLET 1 po qHS for Insomnia TRAZODONE HCL 91244496180 Active Paris Rodriguez APRN Active OMEPRAZOLE 20 MG ORAL CAPSULE DELAYED RELEASE 1 cap by mouth daily OMEPRAZOLE 74286884483 Active Paris Rodriguez APRN Active CLOPIDOGREL BISULFATE 75 MG ORAL TABLET 1 tab po daily for hx embolism 12/10 CLOPIDOGREL BISULFATE 31532550082 Active Paris Rodriguez APRN Active AMLODIPINE BESYLATE 10 MG ORAL TABLET 1 tablet by mouth daily for blood pressure AMLODIPINE BESYLATE 66815754252 Active Paris Rodriguez APRN Active LOSARTAN POTASSIUM 100 MG ORAL TABLET 1 pill by mouth daily, for blood pressure LOSARTAN POTASSIUM 12646191374 Active Paris Rodriguez APRN Active SPIRONOLACTONE 25 MG ORAL TABLET 1 tablet by mouth daily for blood pressure SPIRONOLACTONE 25 MG ORAL TABLET 181426 SPIRONOLACTONE Inactive Vital Signs Date Name Value [...] protein, urine, semiquantitative (dipstick) negative Office Visit: [facility]--GET EST.-PER [facility]-6-26-17 - Basic LDL target level 100 mg/dL Office Visit: [facility]--GET EST.-PER [facility]-6-26-17 - Chemistry HDL cholesterol, serum, target level 40 mg/dL triglyceride, target level 150 mg/dL cholesterol, target level 200 mg/dL Encounters Code Encounter Date Provider Facility CPT-25204 Level 4 Est. Patient 08:23:02 CDT David Nolasco MD [facility] CPT-67365 Level 4 Est. Patient 07:23:20 CDT Paris Rodriguez APRN [facility] CPT-65455 Level 4 New Patient 14:19:32 CDT Nata Duran MD [facility] Procedures Code Procedure Name Date Entry Date Standard Description CPT-76897 Chest 2V Frontal and Lat - XRAY USE ONLY 14:13:50 ANESTHESIOLOGIST ASSISTANT CERTIFIED CPT-25748 Bladder Washing 10:54:10 CDT CPT-84550 Needle Biopsy - Prostate 14:19:32 CDT CPT-05176 Cystoscopy 14:19:32 CDT
--- OUTSIDE RECORDS SUMMARY | 2017-09-04 06:35 | XMS REPORT ---
Author Author [facility] Medical Staff Organization [facility] Address [address] [place] [id number] Phone [phone] Summary purpose TRANSITION OF CARE AUTO GENERATION Chief Complaint and Reason for Visit No authorized Reason for Visit (Admitting Diagnosis) is available for this visit. Problem list No authorized problems tracked for continuity of care are available for this visit. Encounters No authorized problems tracked for encounter diagnoses are available for this visit. Medications No medications recorded for this patient visit Allergies, adverse reactions, alerts Allergen Category Ingredient Status Reaction Severity Onset Penicillins Drug Allergy Penicillins Confirmed or Verified Immunizations No immunizations recorded for this patient visit Relevant diagnostic tests and/or laboratory data RESULTS Routine Urinalysis [id number]:40:00 Result Normal Range Units Color YELLOW Clarity Clear Specific Hawks 1.004 pH 6.0 4.5-8.0 Glucose NEGATIVE Bilirubin NEGATIVE Ketones NEGATIVE Protein NEGATIVE Urobilinogen 0.2 0-0.2 E.U./dL Nitrites NEGATIVE Blood TRACE Leukocytes NEGATIVE WBCs 0-5 RBCs 0-5 Squamous Epithelial No Squamous Epithelial Cells seen. Chemistry [id number]:25:00 Result Normal Range Units Sodium 138 134-145 mEq/l Potassium 4.2 3.5-5.1 mEq/l Chloride 104 98-107 mEq/l CO2 26.2 22-28 mEq/l Glucose H 127 70-105 mg/dl BUN 18 7-18 mg/dl Creatinine 1.24 0.6-1.3 mg/dl Calcium 8.5 8.4-10.2 mg/dl TP - Total Protein 6.5 6.0-8.3 g/dl Albumin L 3.4 3.5-5 g/dl Bilirubin - Total 0.3 0.1-1.0 mg/dl AST L 9 10-42 IU/L ALT 20 12-65 IU/L ALP L 28 39-107 IU/L Magnesium L@ 1.0 1.7-2.8 mg/dl Result successfully called to EMR on 01/05/2016 at 12:55 by CHARLY. DREW DEUTSCH Osmolality L 279.2 280-300 mOsm/L Albumin/Globulin Ratio 1.1 0-8 Anion GAP L 7.8 8-16 BUN/Creatinine Ratio 14.5 10-20 Estimated GFR L 57 >=60 mL/min/1.7 Hematology [id number]:25:00 Result Normal Range Units WBC 5.1 4.8-10.8 103/uL RBC L 3.4 4.7-6.1 106/uL HGB L 11.9 13.0-18.0 g/dl HCT L 33.7 41.9-52.0 % MCV H 98.0 80-94 FL MCH H 34.6 27-31 pg MCHC 35.3 33-37 g/dl RDW 12.1 11.5-15.5 % PLT 159 130-400 103/uL MPV 10.0 7.3-10.4 FL Neutro % 65.4 40-70 % Lymph % 23.5 20-40 % Vernon % 7.6 0-10.0 % Eos % 2.5 0-7.0 % Baso % 0.6 0-2 % Neutro # 3.3 1.5-7.5 103/uL Lymph # 1.2 0.9-4.0 103/uL Vernon # 0.4 0-0.8 103/uL Eos # 0.1 0-0.6 103/uL Baso # 0.0 0-0.1 103/uL Body Fluid :40:00 Result Normal Range Units pH 6.0 4.5-8.0 Cardiac :25:00 Result Normal Range Units Troponin I < 0.02 0.0-0.4 ng/ml Patient samples may contain heterophilic antibodies that could react in immunoassays to give falsely elevated or depressed results. This Dimension assay has been designed to minimize interference from heterophilic antibodies. Nevertheless, complete elimination of this interference from all patient specimens cannot be guaranteed. A test result that is inconsistent with the clinical picture and patient history should be interpreted with caution. Radiology Results :: Result Normal Range Units MPV 10.0 7.3-10.4 FL History of procedures No procedures recorded for this patient visit. Functional status Functional Status Finding Observation Time Abdomen Appearance round [id number] Abdomen non-tender 20-13-115544:30 Nguyen no :30 Nguyen Patent yes :30 Urination normal [id number]:30 Quality sym/unlabored :30 Cough non-productive : Secretions yes :30 Airway natural : Chest Tube no :30 Oxygen no :32 Temp >100.4 no :38 Temp <96.8 no :38 Chills with rigors no :38 HR > 90bpm no :38 Respirations > 20 no :38 Systolic <90 no :38 headache stiff neck no :38 Nursing Note Pt ambulating off of unit at this time. Belongings in hand. :38 Vital signs Type Value Date Respiration Rate 20breaths per minute :32 Pulse 57beats per minute :32 Oxygen Saturation 96% :32 BP Systolic 132mmHg :32 BP Diastolic 60mmHg :32 Temperature 96.9F :32 Weight 185LB [id number]:25 Social history Type Value Smoking Status CURRENT EVERY DAY SMOKER Treatment Plan No treatment plan text is available for this visit. Hospital discharge instructions Dismissal Condition good Disposition on DC home DC Inst/Educ Give yes Med/Side Effects Rev yes PNE Vac 2016 Flu Vac 2016 Tetanus Vac unsure
--- OUTSIDE RECORDS SUMMARY | 2017-09-04 06:36 | XMS REPORT | Clinical Summary ---
Author Author Admin, SKYLA Organization [employer] Address Unknown Phone Unavailable Allergies, Adverse Reactions, [...] by mouth daily for blood pressure SPIRONOLACTONE 85103139392 No Longer Active Paris Rodriguez APRN Active AMMONIUM LACTATE 12 % EXT LOTN use topically as directed for itching/rash AMMONIUM LACTATE 77710085217 Active Paris Rodriguez APRN Active OXYBUTYNIN CHLORIDE 5 MG TABS 1 tab po daily as needed for urinary symptoms OXYBUTYNIN CHLORIDE 29709050495 Active Paris Rodriguez APRN Active MOMETASONE FUROATE 0.1 % EXT OINT use as directed MOMETASONE FUROATE 59251597743 Active Paris Rodriguez APRN Active ROSUVASTATIN CALCIUM 10 MG ORAL TABS 1 tab po for cholestrol ROSUVASTATIN CALCIUM 41328817001 Active Paris Rodriguez APRN Active TRAZODONE HCL 100 MG TAB 1 po qHS for Insomnia TRAZODONE HCL 46974745407 Active Paris Rodriguez APRN Active OMEPRAZOLE 20 MG CPDR 1 cap by mouth daily OMEPRAZOLE 72014767636 Active Paris Rodriguez APRN Active CLOPIDOGREL BISULFATE 75 MG ORAL TABS 1 tab po daily for hx embolism CLOPIDOGREL BISULFATE 98812289796 Active Paris Rodriguez APRN Active AMLODIPINE BESYLATE 10 MG TABS 1 tablet by mouth daily for blood pressure AMLODIPINE BESYLATE 07473832073 Active Paris Rodriguez APRN Active LOSARTAN POTASSIUM 100 MG TABS 1 pill by mouth daily, for blood pressure 2016 LOSARTAN POTASSIUM 50513878690 Active Paris Rodriguez APRN Active SPIRONOLACTONE 25 MG TAB 1 tablet by mouth daily for blood pressure SPIRONOLACTONE 25 MG TAB 665189 SPIRONOLACTONE Inactive Vital Signs Date Name Value [...] negative Encounters Code Encounter Date Provider Facility CPT-58923 Level 4 Est. Patient 07:23:20 CDT Paris Rodriguez APRN [facility] CPT-63790 Level 4 New Patient 14:19:32 CDT Nata Duran MD [facility] Procedures Code Procedure Name Date Entry Date Standard Description CPT-16329 Bladder Washing 10:54:10 CDT CPT-28175 Needle Biopsy - Prostate 14:19:32 CDT CPT-33905 Cystoscopy 14:19:32 CDT
--- OUTSIDE RECORDS SUMMARY | 2017-09-04 06:36 | XMS REPORT | Clinical Summary ---
Author Author Admin, SKYLA Organization [employer] Address Unknown Phone Unavailable Allergies, Adverse Reactions, [...] by mouth daily for blood pressure SPIRONOLACTONE 68239330833 No Longer Active Paris Rodriguez APRN Active AMMONIUM LACTATE 12 % EXTERNAL LOTION use topically as directed for itching/ rash AMMONIUM LACTATE 91798760057 Active Paris Michael BURGLARY INVESTIGATOR Active OXYBUTYNIN CHLORIDE 5 MG ORAL TABLET 1 tab po daily as needed for urinary symptoms OXYBUTYNIN CHLORIDE 97502028399 Active Paris Rodriguez APRN Active MOMETASONE FUROATE 0.1 % EXTERNAL OINTMENT use as directed MOMETASONE FUROATE 23057873958 Active Paris Rodriguez BURGLARY INVESTIGATOR Active ROSUVASTATIN CALCIUM 10 MG ORAL TABLET 1 tab po for cholestrol ROSUVASTATIN CALCIUM 86816312578 Active Paris Rodriguez BURGLARY INVESTIGATOR Active TRAZODONE HCL 100 MG ORAL TABLET 1 po qHS for Insomnia TRAZODONE HCL 70751326199 Active Paris Rodriguez APRN Active OMEPRAZOLE 20 MG ORAL CAPSULE DELAYED RELEASE 1 cap by mouth daily OMEPRAZOLE 25225022235 Active Paris Rodriguez BURGLARY INVESTIGATOR Active CLOPIDOGREL BISULFATE 75 MG ORAL TABLET 1 tab po daily for hx embolism 12/10 CLOPIDOGREL BISULFATE 24526339997 Active Paris Rodriguez BURGLARY INVESTIGATOR Active AMLODIPINE BESYLATE 10 MG ORAL TABLET 1 tablet by mouth daily for blood pressure AMLODIPINE BESYLATE 18863232016 Active Paris Rodriguez APRN Active LOSARTAN POTASSIUM 100 MG ORAL TABLET 1 pill by mouth daily, for blood pressure LOSARTAN POTASSIUM 52342316799 Active Paris Rodriguez APRN Active SPIRONOLACTONE 25 MG ORAL TABLET 1 tablet by mouth daily for blood pressure SPIRONOLACTONE 25 MG ORAL TABLET 112412 SPIRONOLACTONE Inactive Vital Signs Date Name Value [...] ... - Chemistry sodium, serum 141 mmol/L 093-932 3713/11/29 carbon dioxide, venous blood 30.5 mmol/L 21.0-32.0 [...] Clean Catch culture status No Office Visit: [facility]--GET EST.-PER [facility]-6-26-17 - Basic LDL target level 100 mg/dL Office Visit: [facility]--GET EST.-PER [facility] [id number]-2-26-17 - Chemistry HDL cholesterol, serum, target level 40 mg/dL triglyceride, target level 150 mg/dL cholesterol, target level 200 mg/dL Encounters Code Encounter Date Provider Facility CPT-00561 Level 4 Est. 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 Patient 08:23:02 CDT David Nolasco MD [facility] CPT-17361 Level 4 Est. Patient 07:23:20 CDT Paris Rodriguez [facility] CPT-97964 Level 4 New Patient 14:19:32 CDT Nata Duran MD [facility] Procedures Code Procedure Name Date Entry Date Standard Description CPT-30010 Chest 2V Frontal and Lat - XRAY USE ONLY 14:13:50 GROCERY STORE MANAGER CPT-93455 Bladder Washing 10:54:10 CDT CPT-43761 Needle Biopsy - Prostate 14:19:32 CDT CPT-04017 Cystoscopy 14:19:32 CDT
--- OUTSIDE RECORDS SUMMARY | 2017-09-04 06:36 | XMS REPORT | Clinical Summary ---
Author Author Admin, SKYLA Organization [employer] Address Unknown Phone Unavailable Allergies, Adverse Reactions, Alerts Allergy Name Reaction Description Start Date Severity Status Provider ALDACTONE Critical Active Eliza Chen BARGE MASTER HM LORATADINE Critical Active Nata Duran MD [...] 4 days, then 1mg BID VARENICLINE TARTRATE 16381737245 Active Nata Duran MD Active DAILY MULTIVITAMIN ORAL CAPSULE 1 tablet by mouth MULTIPLE VITAMINS-MINERALS 87247043073 Active Eliza Chen BARGE MASTER Active [facility] MELATONIN 10 MG ORAL CAPSULE 1 tablet by mouth at bedtime MELATONIN 13845505955 Active Eliza Chen BARGE MASTER Active [facility] LUTEIN CAPSULE 1 tablet once daily LUTEIN CAPS 59100671531 Active Eliza Chen BARGE MASTER Active GLUCOSAMINE 500 MG ORAL CAPSULE 2 capsules BID GLUCOSAMINE SULFATE 36224375466 [facility] CARDIOSTEROL 500-32 MG ORAL CAPSULE PHYTOSTEROL [facility] 13205403158 Active Eliza Chen BARGE MASTER Active ADULT ASPIRIN LOW STRENGTH 81 MG ORAL TABLET DISINTEGRATING 1 tablet once daily ASPIRIN 07973964754 Active [facility] Active ACETAMINOPHEN EXTRA STRENGTH 500 MG ORAL CAPSULE as needed ACETAMINOPHEN 20311417617 Active Eliza Chen BARGE MASTER Active OXYBUTYNIN CHLORIDE 5 MG ORAL TABLET 1 tab po daily as needed for urinary symptoms OXYBUTYNIN CHLORIDE 18984024699 No Longer Active Eliza Chen BARGE MASTER Active AMMONIUM LACTATE 12 % EXTERNAL LOTION use topically as directed for itching/ rash AMMONIUM LACTATE 75600593270 No Longer Active Eliza Chen BARGE MASTER Active SPIRONOLACTONE 25 MG ORAL TABLET 1 tablet by mouth daily for blood pressure SPIRONOLACTONE 30208169343 No Longer Active Paris Adamson BINGO CLERK Active MOMETASONE FUROATE 0.1 % EXTERNAL OINTMENT use as directed MOMETASONE FUROATE 00507014455 Active Paris Arell BINGO CLERK Active ROSUVASTATIN CALCIUM 10 MG ORAL TABLET 1 tab po for cholestrol ROSUVASTATIN CALCIUM 71534883396 Active Paris Sanchezll BINGO CLERK Active TRAZODONE HCL 100 MG ORAL TABLET 1 po qHS for Insomnia TRAZODONE HCL 17215444124 Active Paris Adamson BINGO CLERK Active OMEPRAZOLE 20 MG ORAL CAPSULE DELAYED RELEASE 1 cap by mouth daily OMEPRAZOLE 73695776095 Active Paris Adamson BINGO CLERK Active CLOPIDOGREL BISULFATE 75 MG ORAL TABLET 1 tab po daily for hx embolism 12/10 CLOPIDOGREL BISULFATE 66165074998 Active Paris Sanchezll BINGO CLERK Active AMLODIPINE BESYLATE 10 MG ORAL TABLET 1 tablet by mouth daily for blood pressure AMLODIPINE BESYLATE 47565751709 Active Paris Danielll BINGO CLERK Active LOSARTAN POTASSIUM 100 MG ORAL TABLET 1 pill by mouth daily, for blood pressure LOSARTAN POTASSIUM 76818917710 Active Paris Adamson BINGO CLERK Active SPIRONOLACTONE 25 MG ORAL TABLET 1 tablet by mouth daily for blood pressure SPIRONOLACTONE 25 MG ORAL TABLET 179831 SPIRONOLACTONE Inactive AMMONIUM LACTATE 12 % EXTERNAL LOTION use topically as directed for itching/ rash AMMONIUM LACTATE 12 % EXTERNAL LOTION 329937 AMMONIUM LACTATE Inactive OXYBUTYNIN CHLORIDE 5 MG ORAL TABLET 1 tab po daily as needed for urinary symptoms OXYBUTYNIN CHLORIDE 5 MG ORAL TABLET 180677 OXYBUTYNIN CHLORIDE Inactive Vital Signs Date Name [...] dipstick 3+ Negative sodium, serum 141 mmol/L 009-787 3505/11/29 carbon dioxide, venous blood 30.5 mmol/L 21.0-32.0 [...] Clean Catch culture status No Office Visit: [place] [facility] - Basic LDL target level 100 mg/dL Office Visit: [place] [facility]--GET EST.-PER [facility]-6-26-17 - Chemistry HDL cholesterol, serum, target level 40 mg/dL triglyceride, target level 150 mg/dL cholesterol, target level 200 mg/dL Encounters Code Encounter Date Provider Facility CPT-82804 Level 3 Est. 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 Patient 16:10:21 SOIL AND PLANT SCIENTIST Nata Duran MD [facility] CPT-29050 Level 4 Est. Patient 16:18:08 SOIL AND PLANT SCIENTIST Paris Adamson [facility] CPT-05595 Level 4 Est. Patient 08:23:02 CDT David Nolasco MD [facility] CPT-86275 Level 4 Est. Patient 07:23:20 CDT Paris Adamson [facility] CPT-07328 Level 4 New Patient 14:19:32 CDT Nata Duran MD [facility] Procedures Code Procedure Name Date Entry Date Standard Description CPT-81656 Chest 2V Frontal and Lat - XRAY USE ONLY 14:13:50 SOIL AND PLANT SCIENTIST CPT-96655 Bladder Washing 10:54:10 CDT CPT-16309 Needle Biopsy - Prostate 14:19:32 CDT CPT-36102 Cystoscopy 14:19:32 CDT
--- OUTSIDE RECORDS SUMMARY | 2017-09-04 06:36 | XMS REPORT | Clinical Summary ---
Author Author Admin, SKYLA Organization [employer] Address Unknown Phone Unavailable Allergies, Adverse Reactions, [...] by mouth daily for blood pressure SPIRONOLACTONE [id number] No Longer Active Paris Rodriguez APRN Active AMMONIUM LACTATE 12 % EXTERNAL LOTION use topically as directed for itching/ rash AMMONIUM LACTATE 72273224084 Active Paris Michael FIELD SERVICE TECHNICIAN Active OXYBUTYNIN CHLORIDE 5 MG ORAL TABLET 1 tab po daily as needed for urinary symptoms OXYBUTYNIN CHLORIDE 05788251855 Active Paris Rodriguez APRN Active MOMETASONE FUROATE 0.1 % EXTERNAL OINTMENT use as directed MOMETASONE FUROATE 31016417793 Active Paris Rodriguez APRN Active ROSUVASTATIN CALCIUM 10 MG ORAL TABLET 1 tab po for cholestrol ROSUVASTATIN CALCIUM 86353225858 Active Paris Rodriguez APRN Active TRAZODONE HCL 100 MG ORAL TABLET 1 po qHS for Insomnia TRAZODONE HCL 95520600876 Active Paris Rodriguez APRN Active OMEPRAZOLE 20 MG ORAL CAPSULE DELAYED RELEASE 1 cap by mouth daily OMEPRAZOLE 13522890002 Active Paris Rodriguez APRN Active CLOPIDOGREL BISULFATE 75 MG ORAL TABLET 1 tab po daily for hx embolism 12/10 CLOPIDOGREL BISULFATE 11272176035 Active Paris Rodriguez APRN Active AMLODIPINE BESYLATE 10 MG ORAL TABLET 1 tablet by mouth daily for blood pressure AMLODIPINE BESYLATE 30857538536 Active Paris Rodriguez APRN Active LOSARTAN POTASSIUM 100 MG ORAL TABLET 1 pill by mouth daily, for blood pressure LOSARTAN POTASSIUM 83712869201 Active Paris Rodriguez APRN Active SPIRONOLACTONE 25 MG ORAL TABLET 1 tablet by mouth daily for blood pressure SPIRONOLACTONE 25 MG ORAL TABLET 499881 SPIRONOLACTONE Inactive Vital Signs Date Name Value [...] protein, urine, semiquantitative (dipstick) negative Office Visit: [place] [employer]--GET EST.-PER [facility]-6-26-17 - Basic LDL target level 100 mg/dL Office Visit: [place] [employer]--GET EST.-PER [facility]-6-26-17 - Chemistry HDL cholesterol, serum, target level 40 mg/dL triglyceride, target level 150 mg/dL cholesterol, target level 200 mg/dL Encounters Code Encounter Date Provider Facility CPT-63164 Level 4 Est. Patient 08:23:02 CDT David Nolasco MD [facility] CPT-26735 Level 4 Est. Patient 07:23:20 CDT Paris Rodriguez APRN [facility] CPT-87432 Level 4 New Patient 14:19:32 CDT Nata Duran MD [facility] Procedures Code Procedure Name Date Entry Date Standard Description CPT-60864 Chest 2V Frontal and Lat - XRAY USE ONLY 14:13:50 HOME THERAPY CLINICIAN CPT-75508 Bladder Washing 10:54:10 CDT CPT-17806 Needle Biopsy - Prostate 14:19:32 CDT CPT-44316 Cystoscopy 14:19:32 CDT
--- OUTSIDE RECORDS SUMMARY | 2017-09-04 06:37 | XMS REPORT | Clinical Summary ---
Author Author Admin, SKYLA Organization [employer] Address Unknown Phone Unavailable Allergies, Adverse Reactions, [...] by mouth daily for blood pressure SPIRONOLACTONE 28800995115 No Longer Active Paris Rodriguez APRN Active AMMONIUM LACTATE 12 % EXT LOTN use topically as directed for itching/rash AMMONIUM LACTATE 55009013080 Active Paris Rodriguez APRN Active OXYBUTYNIN CHLORIDE 5 MG TABS 1 tab po daily as needed for urinary symptoms OXYBUTYNIN CHLORIDE 21857268220 Active Paris Rodriguez APRN Active MOMETASONE FUROATE 0.1 % EXT OINT use as directed MOMETASONE FUROATE 24886169060 Active Paris Rodriguez APRN Active ROSUVASTATIN CALCIUM 10 MG ORAL TABS 1 tab po for cholestrol ROSUVASTATIN CALCIUM 18836669924 Active Paris Rodriguez APRN Active TRAZODONE HCL 100 MG TAB 1 po qHS for Insomnia TRAZODONE HCL 41030302569 Active Paris Rodriguez APRN Active OMEPRAZOLE 20 MG CPDR 1 cap by mouth daily OMEPRAZOLE 79584222531 Active Paris Rodriguez APRN Active CLOPIDOGREL BISULFATE 75 MG ORAL TABS 1 tab po daily for hx embolism CLOPIDOGREL BISULFATE 22024781374 Active Paris Rodriguez APRN Active AMLODIPINE BESYLATE 10 MG TABS 1 tablet by mouth daily for blood pressure AMLODIPINE BESYLATE 13881656349 Active Paris Rodriguez APRN Active LOSARTAN POTASSIUM 100 MG TABS 1 pill by mouth daily, for blood pressure 2016 LOSARTAN POTASSIUM 98856858593 Active Paris Rodriguez APRN Active SPIRONOLACTONE 25 MG TAB 1 tablet by mouth daily for blood pressure SPIRONOLACTONE 25 MG TAB 000411 SPIRONOLACTONE Inactive Vital Signs Date Name Value [...] negative Encounters Code Encounter Date Provider Facility CPT-66145 Level 4 Est. Patient 07:23:20 CDT Paris Rodriguez APRN [facility] CPT-29140 Level 4 New Patient 14:19:32 CDT Nata Duran MD [facility] Procedures Code Procedure Name Date Entry Date Standard Description CPT-97679 Bladder Washing 10:54:10 CDT CPT-29719 Needle Biopsy - Prostate 14:19:32 CDT CPT-35377 Cystoscopy 14:19:32 CDT
--- OUTSIDE RECORDS SUMMARY | 2017-09-04 06:37 | XMS REPORT | Clinical Summary ---
Author Author Admin, SKYLA Organization [employer] Address Unknown Phone Unavailable Allergies, Adverse Reactions, [...] by mouth daily for blood pressure SPIRONOLACTONE 58901548824 No Longer Active Paris Rodriguez APRN Active AMMONIUM LACTATE 12 % EXT LOTN use topically as directed for itching/rash AMMONIUM LACTATE 07371388843 Active Paris Rodriguez APRN Active OXYBUTYNIN CHLORIDE 5 MG TABS 1 tab po daily as needed for urinary symptoms OXYBUTYNIN CHLORIDE 60189464307 Active Paris Rodriguez APRN Active MOMETASONE FUROATE 0.1 % EXT OINT use as directed MOMETASONE FUROATE 08675602671 Active Paris Michael OUTSIDE OPERATOR Active ROSUVASTATIN CALCIUM 10 MG ORAL TABS 1 tab po for cholestrol ROSUVASTATIN CALCIUM 03648288458 Active Paris Rodriguez APRN Active TRAZODONE HCL 100 MG TAB 1 po qHS for Insomnia TRAZODONE HCL 42337382682 Active Paris Rodriguez APRN Active OMEPRAZOLE 20 MG CPDR 1 cap by mouth daily OMEPRAZOLE 39226439976 Active Paris Rodriguez APRN Active CLOPIDOGREL BISULFATE 75 MG ORAL TABS 1 tab po daily for hx embolism CLOPIDOGREL BISULFATE 03069747227 Active Paris Rodriguez APRN Active AMLODIPINE BESYLATE 10 MG TABS 1 tablet by mouth daily for blood pressure AMLODIPINE BESYLATE 17681518654 Active Paris Rodriguez APRN Active LOSARTAN POTASSIUM 100 MG TABS 1 pill by mouth daily, for blood pressure 2016 LOSARTAN POTASSIUM 15873007994 Active Paris Rodriguez APRN Active SPIRONOLACTONE 25 MG TAB 1 tablet by mouth daily for blood pressure SPIRONOLACTONE 25 MG TAB 843957 SPIRONOLACTONE Inactive Vital Signs Date Name Value [...] protein, urine, semiquantitative (dipstick) negative Office Visit: [facility]--GET EST.-PER [facility]-6-26-17 - Basic LDL target level 100 mg/dL Office Visit: [facility]--GET EST.-PER [facility]-6-26-17 - Chemistry HDL cholesterol, serum, target level 40 mg/dL triglyceride, target level 150 mg/dL cholesterol, target level 200 mg/dL Encounters Code Encounter Date Provider Facility CPT-84505 Level 4 Est. Patient 08:23:02 CDT David Nolasco MD [facility] CPT-04550 Level 4 Est. Patient 07:23:20 CDT Paris Rodriguez APRN [facility] CPT-44922 Level 4 New Patient 14:19:32 CDT Nata Duran MD [facility] Procedures Code Procedure Name Date Entry Date Standard Description CPT-42256 Bladder Washing 10:54:10 CDT CPT-28051 Needle Biopsy - Prostate 14:19:32 T CPT-81996 Cystoscopy 14:19:32 [facility][NOTE 2]
--- OUTSIDE RECORDS SUMMARY | 2017-09-04 06:37 | XMS REPORT | Clinical Summary ---
Author Author Admin, SKYLA Organization [employer] Address Unknown Phone Unavailable Allergies, Adverse Reactions, Alerts Allergy Name Reaction Description Start Date Severity Status Provider ALDACTONE Critical Active Eliza Chen SQL PROGRAMMER HM LORATADINE Critical Active Nata Duran MD [...] 4 days, then 1mg BID VARENICLINE TARTRATE 66798079558 Active Nata Duran MD Active DAILY MULTIVITAMIN ORAL CAPSULE 1 tablet by mouth MULTIPLE VITAMINS-MINERALS 18934192708 Active Eliza Chen SQL PROGRAMMER Active [facility] MELATONIN 10 MG ORAL CAPSULE 1 tablet by mouth at bedtime MELATONIN 73065284765 Active Eliza Chen SQL PROGRAMMER Active [facility] LUTEIN CAPSULE 1 tablet once daily LUTEIN CAPS 74012857608 Active Eliza Chen SQL PROGRAMMER Active GLUCOSAMINE 500 MG ORAL CAPSULE 2 capsules BID GLUCOSAMINE SULFATE 74778895854 [facility] CARDIO[facility]OL 500-32 MG ORAL CAPSULE PHYTOSTEROL ESTERS-FISH OIL 50486260975 Active Eliza Chen SQL PROGRAMMER Active ADULT ASPIRIN LOW STRENGTH 81 MG ORAL TABLET DISINTEGRATING 1 tablet once daily ASPIRIN 62193415800 [facility] Active ACETAMINOPHEN EXTRA STRENGTH 500 MG ORAL CAPSULE as needed ACETAMINOPHEN 24192947706 Active Eliza Chen SQL PROGRAMMER Active OXYBUTYNIN CHLORIDE 5 MG ORAL TABLET 1 tab po daily as needed for urinary symptoms OXYBUTYNIN CHLORIDE 59145352508 No Longer Active Eliza Chen SQL PROGRAMMER Active AMMONIUM LACTATE 12 % EXTERNAL LOTION use topically as directed for itching/ rash AMMONIUM LACTATE 27038652136 No Longer Active Eliza Chen SQL PROGRAMMER Active SPIRONOLACTONE 25 MG ORAL TABLET 1 tablet by mouth daily for blood pressure SPIRONOLACTONE 12153293573 No Longer Active Paris Adamson WEATHER STRIP MECHANIC Active MOMETASONE FUROATE 0.1 % EXTERNAL OINTMENT use as directed MOMETASONE FUROATE 38397280815 Active Paris Arell WEATHER STRIP MECHANIC Active ROSUVASTATIN CALCIUM 10 MG ORAL TABLET 1 tab po for cholestrol ROSUVASTATIN CALCIUM 05678433448 Active Paris Sanchezll WEATHER STRIP MECHANIC Active TRAZODONE HCL 100 MG ORAL TABLET 1 po qHS for Insomnia TRAZODONE HCL 87147196783 Active Paris Adamson WEATHER STRIP MECHANIC Active OMEPRAZOLE 20 MG ORAL CAPSULE DELAYED RELEASE 1 cap by mouth daily OMEPRAZOLE 41802087297 Active Paris Adamson WEATHER STRIP MECHANIC Active CLOPIDOGREL BISULFATE 75 MG ORAL TABLET 1 tab po daily for hx embolism 12/10 CLOPIDOGREL BISULFATE 89286409060 Active Paris Sanchezll WEATHER STRIP MECHANIC Active AMLODIPINE BESYLATE 10 MG ORAL TABLET 1 tablet by mouth daily for blood pressure AMLODIPINE BESYLATE 44295065376 Active Paris Danielll WEATHER STRIP MECHANIC Active LOSARTAN POTASSIUM 100 MG ORAL TABLET 1 pill by mouth daily, for blood pressure LOSARTAN POTASSIUM 06280711607 Active Paris Adamson WEATHER STRIP MECHANIC Active SPIRONOLACTONE 25 MG ORAL TABLET 1 tablet by mouth daily for blood pressure SPIRONOLACTONE 25 MG ORAL TABLET 671995 SPIRONOLACTONE Inactive AMMONIUM LACTATE 12 % EXTERNAL LOTION use topically as directed for itching/ rash AMMONIUM LACTATE 12 % EXTERNAL LOTION 049932 AMMONIUM LACTATE Inactive OXYBUTYNIN CHLORIDE 5 MG ORAL TABLET 1 tab po daily as needed for urinary symptoms OXYBUTYNIN CHLORIDE 5 MG ORAL TABLET 614652 OXYBUTYNIN CHLORIDE Inactive Vital Signs Date Name [...] dipstick 3+ Negative sodium, serum 141 mmol/L 875-349 6087/11/29 carbon dioxide, venous blood 30.5 mmol/L 21.0-32.0 [...] Clean Catch culture status No Office Visit: [place] [employer] - Basic LDL target level 100 mg/dL Office Visit: [place] [employer]--GET EST.-PER [facility]-6-26-17 - Chemistry HDL cholesterol, serum, target level 40 mg/dL triglyceride, target level 150 mg/dL cholesterol, target level 200 mg/dL Encounters Code Encounter Date Provider Facility CPT-50313 Level 3 Est. Patient 17:28:14 [facility] [address] Nata Duran MD [facility] CPT-66268 Level 3 Est. Patient 16:10:21 [facility] Nata Duran MD [facility] CPT-93879 Level 4 Est. Patient 16:18:08 [facility] [address] Paris Adamson [facility] CPT-95990 Level 4 Est. Patient 08:23:02 CDT David Nolasco MD [facility] CPT-54280 Level 4 Est. Patient 07:23:20 CDT Paris Adamson [facility] CPT-80341 Level 4 New Patient 14:19:32 CDT Nata Duran MD [facility] Procedures Code Procedure Name Date Entry Date Standard Description CPT-69555 Chest 2V Frontal and Lat - XRAY USE ONLY 14:13:50 [facility] [address] CPT-05624 Bladder Washing 10:54:10 CDT CPT-05178 Needle Biopsy - Prostate 14:19:32 CDT CPT-13730 Cystoscopy 14:19:32 CDT
--- OUTSIDE RECORDS SUMMARY | 2017-09-04 06:37 | XMS REPORT | Clinical Summary ---
Author Author Admin, SKYLA Organization [employer] Address Unknown Phone Unavailable Allergies, Adverse Reactions, [...] by mouth daily for blood pressure SPIRONOLACTONE 16825468960 No Longer Active Paris Rodriguez APRN Active AMMONIUM LACTATE 12 % EXT LOTN use topically as directed for itching/rash AMMONIUM LACTATE 19588758769 Active Paris Rodriguez APRN Active OXYBUTYNIN CHLORIDE 5 MG TABS 1 tab po daily as needed for urinary symptoms OXYBUTYNIN CHLORIDE 32590344887 Active Paris Rodriguez APRN Active MOMETASONE FUROATE 0.1 % EXT OINT use as directed MOMETASONE FUROATE 14322068965 Active Paris Rodriguez APRN Active ROSUVASTATIN CALCIUM 10 MG ORAL TABS 1 tab po for cholestrol ROSUVASTATIN CALCIUM 92066670583 Active Paris Rodriguez APRN Active TRAZODONE HCL 100 MG TAB 1 po qHS for Insomnia TRAZODONE HCL 61754644526 Active Paris Rodriguez APRN Active OMEPRAZOLE 20 MG CPDR 1 cap by mouth daily OMEPRAZOLE 90871668702 Active Paris Rodriguez APRN Active CLOPIDOGREL BISULFATE 75 MG ORAL TABS 1 tab po daily for hx embolism CLOPIDOGREL BISULFATE 61640002626 Active Paris Rodriguez APRN Active AMLODIPINE BESYLATE 10 MG TABS 1 tablet by mouth daily for blood pressure AMLODIPINE BESYLATE 13420793571 Active Paris Rodriguez APRN Active LOSARTAN POTASSIUM 100 MG TABS 1 pill by mouth daily, for blood pressure 2016 LOSARTAN POTASSIUM 52205525509 Active Paris Rodriguez APRN Active SPIRONOLACTONE 25 MG TAB 1 tablet by mouth daily for blood pressure SPIRONOLACTONE 25 MG TAB 787933 SPIRONOLACTONE Inactive Vital Signs Date Name Value [...] negative Encounters Code Encounter Date Provider Facility CPT-46055 Level 4 Est. Patient 07:23:20 CDT Paris Rodriguez APRN [facility] CPT-08749 Level 4 New Patient 14:19:32 CDT Nata Duran MD [facility] Procedures Code Procedure Name Date Entry Date Standard Description CPT-69118 Bladder Washing 10:54:10 CDT CPT-35867 Needle Biopsy - Prostate 14:19:32 CDT CPT-26956 Cystoscopy 14:19:32 CDT
--- OUTSIDE RECORDS SUMMARY | 2017-09-04 06:38 | XMS REPORT | Clinical Summary ---
Author Author Admin, SKYLA Organization [employer] Address Unknown Phone Unavailable Allergies, Adverse Reactions, [...] by mouth daily for blood pressure SPIRONOLACTONE 49503143102 No Longer Active Paris Rodriguez APRN Active AMMONIUM LACTATE 12 % EXT LOTN use topically as directed for itching/rash AMMONIUM LACTATE 60610061564 Active Paris Rodriguez APRN Active OXYBUTYNIN CHLORIDE 5 MG TABS 1 tab po daily as needed for urinary symptoms OXYBUTYNIN CHLORIDE 99700339976 Active Paris Rodriguez APRN Active MOMETASONE FUROATE 0.1 % EXT OINT use as directed MOMETASONE FUROATE 69907717559 Active Paris Michael CONSTRUCTION SAFETY MANAGER Active ROSUVASTATIN CALCIUM 10 MG ORAL TABS 1 tab po for cholestrol ROSUVASTATIN CALCIUM 50140151771 Active Paris Rodriguez APRN Active TRAZODONE HCL 100 MG TAB 1 po qHS for Insomnia TRAZODONE HCL 20510451921 Active Paris Rodriguez APRN Active OMEPRAZOLE 20 MG CPDR 1 cap by mouth daily OMEPRAZOLE 01004438244 Active Paris Rodriguez APRN Active CLOPIDOGREL BISULFATE 75 MG ORAL TABS 1 tab po daily for hx embolism CLOPIDOGREL BISULFATE 30628896745 Active Paris Rodriguez APRN Active AMLODIPINE BESYLATE 10 MG TABS 1 tablet by mouth daily for blood pressure AMLODIPINE BESYLATE 85357034888 Active Paris Rodriguez APRN Active LOSARTAN POTASSIUM 100 MG TABS 1 pill by mouth daily, for blood pressure 2016 LOSARTAN POTASSIUM 70087652354 Active Paris Rodriguez APRN Active SPIRONOLACTONE 25 MG TAB 1 tablet by mouth daily for blood pressure SPIRONOLACTONE 25 MG TAB 846320 SPIRONOLACTONE Inactive Vital Signs Date Name Value [...] protein, urine, semiquantitative (dipstick) negative Office Visit: [facility]--GET EST.-[facility]6-26-17 - Basic LDL target level 100 mg/dL Office Visit: [facility]--GET EST.-PER [facility]-6-26-17 - Chemistry HDL cholesterol, serum, target level 40 mg/dL triglyceride, target level 150 mg/dL cholesterol, target level 200 mg/dL Encounters Code Encounter Date Provider Facility CPT-98785 Level 4 Est. Patient 08:23:02 CDT David Nolasco MD [facility] CPT-78149 Level 4 Est. Patient 07:23:20 CDT Paris Rodriguez APRN [facility] CPT-13733 Level 4 New Patient 14:19:32 CDT Nata Duran MD [facility] Procedures Code Procedure Name Date Entry Date Standard Description CPT-31659 Bladder Washing 10:54:10 CDT CPT-12337 Needle Biopsy - Prostate 14:19:32 T CPT-65649 Cystoscopy 14:19:32 [facility]
--- OUTSIDE RECORDS SUMMARY | 2017-09-04 06:38 | XMS REPORT | Clinical Summary ---
Author Author Admin, SKYLA Organization [employer] Address Unknown Phone Unavailable Allergies, Adverse Reactions, [...] by mouth daily for blood pressure SPIRONOLACTONE 80022187464 No Longer Active Paris Rodriguez APRN Active AMMONIUM LACTATE 12 % EXTERNAL LOTION use topically as directed for itching/ rash AMMONIUM LACTATE 91537426669 Active Paris Michael FERMENTATION MANAGER Active OXYBUTYNIN CHLORIDE 5 MG ORAL TABLET 1 tab po daily as needed for urinary symptoms OXYBUTYNIN CHLORIDE 00066926318 Active Paris Rodriguez APRN Active MOMETASONE FUROATE 0.1 % EXTERNAL OINTMENT use as directed MOMETASONE FUROATE 26627613129 Active Paris Rodriguez APRN Active ROSUVASTATIN CALCIUM 10 MG ORAL TABLET 1 tab po for cholestrol ROSUVASTATIN CALCIUM 22636914133 Active Paris Rodriguez APRN Active TRAZODONE HCL 100 MG ORAL TABLET 1 po qHS for Insomnia TRAZODONE HCL 33718631687 Active Paris Rodriguez APRN Active OMEPRAZOLE 20 MG ORAL CAPSULE DELAYED RELEASE 1 cap by mouth daily OMEPRAZOLE 39917961322 Active Paris Rodriguez APRN Active CLOPIDOGREL BISULFATE 75 MG ORAL TABLET 1 tab po daily for hx embolism 12/10 CLOPIDOGREL BISULFATE 90931343510 Active Paris Rodriguez APRN Active AMLODIPINE BESYLATE 10 MG ORAL TABLET 1 tablet by mouth daily for blood pressure AMLODIPINE BESYLATE 97873382560 Active Paris Rodriguez APRN Active LOSARTAN POTASSIUM 100 MG ORAL TABLET 1 pill by mouth daily, for blood pressure LOSARTAN POTASSIUM 78605503296 Active Paris Rodriguez APRN Active SPIRONOLACTONE 25 MG ORAL TABLET 1 tablet by mouth daily for blood pressure SPIRONOLACTONE 25 MG ORAL TABLET 446633 SPIRONOLACTONE Inactive Vital Signs Date Name Value [...] ... - Chemistry sodium, serum 141 mmol/L 177-242 5207/11/29 carbon dioxide, venous blood 30.5 mmol/L 21.0-32.0 [...] Clean Catch culture status No Office Visit: [place] [employer]--GET EST.-PER [facility]-6-26-17 - Basic LDL target level 100 mg/dL Office Visit: [place] [employer]--GET EST.-PER [facility]-6-26-17 - Chemistry HDL cholesterol, serum, target level 40 mg/dL triglyceride, target level 150 mg/dL cholesterol, target level 200 mg/dL Encounters Code Encounter Date Provider Facility CPT-42559 Level 4 Est. Patient 08:23:02 CDT David Nolasco MD [facility] CPT-71156 Level 4 Est. Patient 07:23:20 CDT Paris Rodriguez APRN [facility] CPT-71062 Level 4 New Patient 14:19:32 CDT Nata Duran MD [facility] Procedures Code Procedure Name Date Entry Date Standard Description CPT-08000 Chest 2V Frontal and Lat - XRAY USE ONLY 14:13:50 [facility] N[facility]SE CPT-34628 Bladder Washing 10:54:10 CDT CPT-41302 Needle Biopsy - Prostate 14:19:32 CDT CPT-57393 Cystoscopy 14:19:32 CDT
--- OUTSIDE RECORDS SUMMARY | 2017-09-04 06:38 | XMS REPORT | Clinical Summary ---
Author Author Admin, SKYLA Organization [employer] Address Unknown Phone Unavailable Allergies, Adverse Reactions, [...] by mouth daily for blood pressure SPIRONOLACTONE 68626205771 No Longer Active Paris Rodriguez APRN Active AMMONIUM LACTATE 12 % EXTERNAL LOTION use topically as directed for itching/ rash AMMONIUM LACTATE 98522289826 Active Paris Micahel ECHOCARDIOGRAPH TECHNICIAN Active OXYBUTYNIN CHLORIDE 5 MG ORAL TABLET 1 tab po daily as needed for urinary symptoms OXYBUTYNIN CHLORIDE 94765507517 Active Paris Rodriguez APRN Active MOMETASONE FUROATE 0.1 % EXTERNAL OINTMENT use as directed MOMETASONE FUROATE 40746625269 Active Paris oRdriguez APRN Active ROSUVASTATIN CALCIUM 10 MG ORAL TABLET 1 tab po for cholestrol ROSUVASTATIN CALCIUM 49765084864 Active Paris Rodriguez APRN Active TRAZODONE HCL 100 MG ORAL TABLET 1 po qHS for Insomnia TRAZODONE HCL 90216569245 Active Paris Rodriguez APRN Active OMEPRAZOLE 20 MG ORAL CAPSULE DELAYED RELEASE 1 cap by mouth daily OMEPRAZOLE 61479918172 Active Paris Rodriguez APRN Active CLOPIDOGREL BISULFATE 75 MG ORAL TABLET 1 tab po daily for hx embolism 12/10 CLOPIDOGREL BISULFATE 75925403108 Active Paris Rodriguez APRN Active AMLODIPINE BESYLATE 10 MG ORAL TABLET 1 tablet by mouth daily for blood pressure AMLODIPINE BESYLATE 33458323136 Active Paris Rodriguez APRN Active LOSARTAN POTASSIUM 100 MG ORAL TABLET 1 pill by mouth daily, for blood pressure LOSARTAN POTASSIUM 26082407681 Active Paris Rodriguez APRN Active SPIRONOLACTONE 25 MG ORAL TABLET 1 tablet by mouth daily for blood pressure SPIRONOLACTONE 25 MG ORAL TABLET 756335 SPIRONOLACTONE Inactive Vital Signs Date Name Value [...] ... - Chemistry sodium, serum 141 mmol/L 016-744 0305/11/29 carbon dioxide, venous blood 30.5 mmol/L 21.0-32.0 [...] Clean Catch culture status No Office Visit: [place] [employer]--GET EST.-PER [facility]-6-26-17 - Basic LDL target level 100 mg/dL Office Visit: [place] [employer]--GET EST.-PER [facility]-6-26-17 - Chemistry HDL cholesterol, serum, target level 40 mg/dL triglyceride, target level 150 mg/dL cholesterol, target level 200 mg/dL Encounters Code Encounter Date Provider Facility CPT-24133 Level 4 Est. Patient 08:23:02 CDT David Nolasco MD [facility] CPT-74605 Level 4 Est. Patient 07:23:20 CDT Paris Rodriguez APRN [facility] CPT-37991 Level 4 New Patient 14:19:32 CDT Nata Duran MD [facility] Procedures Code Procedure Name Date Entry Date Standard Description CPT-53872 Chest 2V Frontal and Lat - XRAY USE ONLY 14:13:50 [facility] CPT-49788 Bladder Washing 10:54:10 CDT CPT-13228 Needle Biopsy - Prostate 14:19:32 CDT CPT-53695 Cystoscopy 14:19:32 CDT
--- OUTSIDE RECORDS SUMMARY | 2017-09-04 06:39 | XMS REPORT | Clinical Summary ---
Author Author Admin, SKYLA Organization [facility] Address Unknown Phone Unavailable Allergies, Adverse Reactions, Alerts Allergy Name Reaction Description Start Date Severity Status Provider ALDACTONE Critical Active Eliza Chen NEWS VIDEO EDITOR LORATADINE Critical Active Nata Duran MD HYDROCHLOROTHIAZIDE [...] 4 days, then 1mg BID VARENICLINE TARTRATE 20192267271 Active J Jose Duran MD Active DAILY MULTIVITAMIN ORAL CAPSULE 1 tablet by mouth MULTIPLE VITAMINS-MINERALS 37727944303 Active Eliza Chen NEWS VIDEO EDITOR Active [facility] MELATONIN 10 MG ORAL CAPSULE 1 tablet by mouth at bedtime MELATONIN 10480145080 Active Eliza Chen NEWS VIDEO EDITOR Active [facility] LUTEIN CAPSULE 1 tablet once daily LUTEIN CAPS 26539671877 [facility] GLUCOSAMINE 500 MG ORAL CAPSULE 2 capsules BID GLUCOSAMINE SULFATE 30544334907 Active [facility] Active CARDIOSTEROL 500-32 MG ORAL CAPSULE PHYTOSTEROL ESTERS-FISH OIL 66475626281 Active Eliza Chen NEWS VIDEO EDITOR Active ADULT ASPIRIN LOW STRENGTH 81 MG ORAL TABLET DISINTEGRATING 1 tablet once daily ASPIRIN 97193199531 Active Eliza Chen NEWS VIDEO EDITOR Active ACETAMINOPHEN EXTRA STRENGTH 500 MG ORAL CAPSULE as needed ACETAMINOPHEN 21269943019 Active [facility] Active OXYBUTYNIN CHLORIDE 5 MG ORAL TABLET 1 tab po daily as needed for urinary symptoms OXYBUTYNIN CHLORIDE 62042768675 No Longer Active Eliza Chen LPN Active AMMONIUM LACTATE 12 % EXTERNAL LOTION use topically as directed for itching/ rash AMMONIUM LACTATE 88460588466 No Longer Active Eliza Chen LPN Active SPIRONOLACTONE 25 MG ORAL TABLET 1 tablet by mouth daily for blood pressure SPIRONOLACTONE 37951509522 No Longer Active Paris Adamson STAMP MOUNTER Active MOMETASONE FUROATE 0.1 % EXTERNAL OINTMENT use as directed MOMETASONE FUROATE 96490316046 Active Paris Adamson STAMP MOUNTER Active ROSUVASTATIN CALCIUM 10 MG ORAL TABLET 1 tab po for cholestrol ROSUVASTATIN CALCIUM 34117056580 Active Paris Adamson STAMP MOUNTER Active TRAZODONE HCL 100 MG ORAL TABLET 1 po qHS for Insomnia TRAZODONE HCL 67898793057 Active Paris Adamson STAMP MOUNTER Active OMEPRAZOLE 20 MG ORAL CAPSULE DELAYED RELEASE 1 cap by mouth daily OMEPRAZOLE 31308415658 Active Paris Adamson STAMP MOUNTER Active CLOPIDOGREL BISULFATE 75 MG ORAL TABLET 1 tab po daily for hx embolism 12/10 CLOPIDOGREL BISULFATE 26208057116 Active Paris Adamson STAMP MOUNTER Active AMLODIPINE BESYLATE 10 MG ORAL TABLET 1 tablet by mouth daily for blood pressure AMLODIPINE BESYLATE 90152054316 Active Paris Adamson STAMP MOUNTER Active LOSARTAN POTASSIUM 100 MG ORAL TABLET 1 pill by mouth daily, for blood pressure LOSARTAN POTASSIUM 00511948117 Active Paris Adamson STAMP MOUNTER Active SPIRONOLACTONE 25 MG ORAL TABLET 1 tablet by mouth daily for blood pressure SPIRONOLACTONE 25 MG ORAL TABLET 148606 SPIRONOLACTONE Inactive AMMONIUM LACTATE 12 % EXTERNAL LOTION use topically as directed for itching/ rash AMMONIUM LACTATE 12 % EXTERNAL LOTION 733807 AMMONIUM LACTATE Inactive OXYBUTYNIN CHLORIDE 5 MG ORAL TABLET 1 tab po daily as needed for urinary symptoms OXYBUTYNIN CHLORIDE 5 MG ORAL TABLET 820239 OXYBUTYNIN CHLORIDE Inactive Vital Signs Date Name [...] dipstick 3+ Negative sodium, serum 141 mmol/L 087-112 5194/11/29 carbon dioxide, venous blood 30.5 mmol/L 21.0-32.0 [...] Clean Catch culture status No Office Visit: [facility]--GET EST.-PER [id number] - Basic LDL target level 100 mg/dL [facility] - Chemistry HDL cholesterol, serum, target level 40 mg/dL triglyceride, target level 150 mg/dL cholesterol, target level 200 mg/dL Encounters Code Encounter Date Provider Facility CPT-77700 Level 3 Est. Patient 16:10:21 ASSISTANT PRODUCER Nata Duran MD [facility] CPT-22390 Level 4 Est. Patient 16:18:08 ASSISTANT PRODUCER Paris Adamson [facility] CPT-47445 Level 4 Est. Patient 08:23:02 CDT David Nolasco MD [facility] CPT-20279 Level 4 Est. Patient 07:23:20 CDT Paris Adamson [facility] CPT-97280 Level 4 New Patient 14:19:32 CDT Nata Duran MD [facility] Procedures Code Procedure Name Date Entry Date Standard Description CPT-17436 Chest 2V Frontal and Lat - XRAY USE ONLY 14:13:50 ASSISTANT PRODUCER CPT-61914 Bladder Washing 10:54:10 CDT CPT-07667 Needle Biopsy - Prostate 14:19:32 CDT CPT-63151 Cystoscopy 14:19:32 CDT
--- OUTSIDE RECORDS SUMMARY | 2017-09-04 06:39 | XMS REPORT | Clinical Summary ---
Author Author Admin, SKYLA Organization [employer] Address Unknown Phone Unavailable Allergies, Adverse Reactions, [...] by mouth daily for blood pressure SPIRONOLACTONE 98242915856 No Longer Active Paris Rodriguez APRN Active AMMONIUM LACTATE 12 % EXT LOTN use topically as directed for itching/rash AMMONIUM LACTATE 85576811017 Active Paris Rodriguez APRN Active OXYBUTYNIN CHLORIDE 5 MG TABS 1 tab po daily as needed for urinary symptoms OXYBUTYNIN CHLORIDE 19193193244 Active Paris Rodriguez APRN Active MOMETASONE FUROATE 0.1 % EXT OINT use as directed MOMETASONE FUROATE 67543702597 Active Paris Michael FLUTE TEACHER Active ROSUVASTATIN CALCIUM 10 MG ORAL TABS 1 tab po for cholestrol ROSUVASTATIN CALCIUM 25505401905 Active Paris Rodriguez APRN Active TRAZODONE HCL 100 MG TAB 1 po qHS for Insomnia TRAZODONE HCL 24053591303 Active Paris Rodriguez APRN Active OMEPRAZOLE 20 MG CPDR 1 cap by mouth daily OMEPRAZOLE 37713189836 Active Paris Rodriguez APRN Active CLOPIDOGREL BISULFATE 75 MG ORAL TABS 1 tab po daily for hx embolism CLOPIDOGREL BISULFATE 35820413812 Active Paris Rodriguez APRN Active AMLODIPINE BESYLATE 10 MG TABS 1 tablet by mouth daily for blood pressure AMLODIPINE BESYLATE 00114973219 Active Paris Rodriguez APRN Active LOSARTAN POTASSIUM 100 MG TABS 1 pill by mouth daily, for blood pressure 2016 LOSARTAN POTASSIUM 51076279126 Active Paris Rodriguez APRN Active SPIRONOLACTONE 25 MG TAB 1 tablet by mouth daily for blood pressure SPIRONOLACTONE 25 MG TAB 773177 SPIRONOLACTONE Inactive Vital Signs Date Name Value [...] protein, urine, semiquantitative (dipstick) negative Office Visit: [facility]--GET EST.-PER [facility]-6-26-17 - Basic LDL target level 100 mg/dL Office Visit: [facility]--GET EST.-PER [facility]-6-26-17 - Chemistry HDL cholesterol, serum, target level 40 mg/dL triglyceride, target level 150 mg/dL cholesterol, target level 200 mg/dL Encounters Code Encounter Date Provider Facility CPT-66482 Level 4 Est. Patient 08:23:02 CDT David Nolasco MD [facility] CPT-40804 Level 4 Est. Patient 07:23:20 CDT Paris Rodriguez APRN [facility] CPT-65582 Level 4 New Patient 14:19:32 CDT Nata Duran MD [facility] Procedures Code Procedure Name Date Entry Date Standard Description CPT-59208 Bladder Washing 10:54:10 CDT CPT-33688 Needle Biopsy - Prostate 14:19:32 T CPT-22017 Cystoscopy 14:19:32 [facility] [place]
--- OUTSIDE RECORDS SUMMARY | 2017-09-04 06:39 | XMS REPORT | Clinical Summary ---
Author Author Admin, SKYLA Organization [employer] Address Unknown Phone Unavailable Allergies, Adverse Reactions, Alerts Allergy Name Reaction Description Start Date Severity Status Provider ALDACTONE Critical Active Eliza Chen LPN LORATADINE Critical Active Nata Duran MD HYDROCHLOROTHIAZIDE [...] 4 days, then 1mg BID VARENICLINE TARTRATE 36398065379 Active J Jose Duran MD Active DAILY MULTIVITAMIN ORAL CAPSULE 1 tablet by mouth MULTIPLE VITAMINS-MINERALS 12764944161 Active Eliza Chen LPN Active [facility] MELATONIN 10 MG ORAL CAPSULE 1 tablet by mouth at bedtime MELATONIN 65410753912 Active Eliza Chen LPN Active [facility] LUTEIN CAPSULE 1 tablet once daily LUTEIN CAPS 36075238372 Active Eliza Chen LPN Active GLUCOSAMINE 500 MG ORAL CAPSULE 2 capsules BID GLUCOSAMINE SULFATE 39270096036 Active Eliza Chen LPN Active CARDIOSTEROL 500-32 MG ORAL CAPSULE PHYTOSTEROL ESTERS-FISH OIL 77864804875 Active Eliza Chen LPN Active ADULT ASPIRIN LOW STRENGTH 81 MG ORAL TABLET DISINTEGRATING 1 tablet once daily ASPIRIN 99635628056 Active Eliza Chen LPN Active ACETAMINOPHEN EXTRA STRENGTH 500 MG ORAL CAPSULE as needed ACETAMINOPHEN 32899962881 Active Eliza Chen LPN Active OXYBUTYNIN CHLORIDE 5 MG ORAL TABLET 1 tab po daily as needed for urinary symptoms OXYBUTYNIN CHLORIDE 68959734405 No Longer Active Eliza Chen LPN Active AMMONIUM LACTATE 12 % EXTERNAL LOTION use topically as directed for itching/ rash AMMONIUM LACTATE 64262467875 No Longer Active Eliza Chen LPN Active SPIRONOLACTONE 25 MG ORAL TABLET 1 tablet by mouth daily for blood pressure SPIRONOLACTONE 51166098740 No Longer Active Paris Rodriguez APRN Active MOMETASONE FUROATE 0.1 % EXTERNAL OINTMENT use as directed MOMETASONE FUROATE 68602790401 Active Paris Rodriguez APRN Active ROSUVASTATIN CALCIUM 10 MG ORAL TABLET 1 tab po for cholestrol ROSUVASTATIN CALCIUM 70818911554 Active Paris Rodriguez APRN Active TRAZODONE HCL 100 MG ORAL TABLET 1 po qHS for Insomnia TRAZODONE HCL 25594194135 Active aPris Rodriguez APRN Active OMEPRAZOLE 20 MG ORAL CAPSULE DELAYED RELEASE 1 cap by mouth daily OMEPRAZOLE 41207179448 Active Paris Rodriguez APRN Active CLOPIDOGREL BISULFATE 75 MG ORAL TABLET 1 tab po daily for hx embolism 12/10 CLOPIDOGREL BISULFATE 44989168688 Active Paris Rodriguez APRN Active AMLODIPINE BESYLATE 10 MG ORAL TABLET 1 tablet by mouth daily for blood pressure AMLODIPINE BESYLATE 03941798998 Active Paris Rodriguez APRN Active LOSARTAN POTASSIUM 100 MG ORAL TABLET 1 pill by mouth daily, for blood pressure LOSARTAN POTASSIUM 70347218972 Active Paris Rodriguez APRN Active SPIRONOLACTONE 25 MG ORAL TABLET 1 tablet by mouth daily for blood pressure SPIRONOLACTONE 25 MG ORAL TABLET 548401 SPIRONOLACTONE Inactive AMMONIUM LACTATE 12 % EXTERNAL LOTION use topically as directed for itching/ rash AMMONIUM LACTATE 12 % EXTERNAL LOTION 001784 AMMONIUM LACTATE Inactive OXYBUTYNIN CHLORIDE 5 MG ORAL TABLET 1 tab po daily as needed for urinary symptoms OXYBUTYNIN CHLORIDE 5 MG ORAL TABLET 969208 OXYBUTYNIN CHLORIDE Inactive Vital Signs Date Name [...] dipstick 3+ Negative sodium, serum 141 mmol/L 757-002 0201/11/29 carbon dioxide, venous blood 30.5 mmol/L 21.0-32.0 [...] Clean Catch culture status No Office Visit: [place] [id number] - Basic LDL target level 100 mg/dL Office Visit: [facility]--GET EST.-L[facility] - Chemistry HDL cholesterol, serum, target level 40 mg/dL triglyceride, target level 150 mg/dL cholesterol, target level 200 mg/dL Encounters Code Encounter Date Provider Facility CPT-37513 Level 3 Est. Patient 16:10:21 AUTOMOBILE TECHNICIAN Nata Duran MD [facility] CPT-57866 Level 4 Est. Patient 16:18:08 AUTOMOBILE TECHNICIAN Paris Rodriguez [facility] CPT-64049 Level 4 Est. Patient 08:23:02 CDT David Nolasco MD [facility] CPT-56473 Level 4 Est. Patient 07:23:20 CDT Paris Rodriguez [facility] CPT-20983 Level 4 New Patient 14:19:32 CDT Nata Duran MD [facility] Procedures Code Procedure Name Date Entry Date Standard Description CPT-38592 Chest 2V Frontal and Lat - XRAY USE ONLY 14:13:50 AUTOMOBILE TECHNICIAN CPT-53516 Bladder Washing 10:54:10 CDT CPT-38441 Needle Biopsy - Prostate 14:19:32 CDT CPT-84970 Cystoscopy 14:19:32 CDT
--- OUTSIDE RECORDS SUMMARY | 2017-09-04 06:40 | XMS REPORT | Clinical Summary ---
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 Nata Duran MD Malignant neoplasm of renal pelvis Medication List Medication Instructions Start Date Stop Date Generic Name NDC Status Provider Patient Instruction CHANTIX STARTING MONTH CHAR 0.5 MG X 11 & 1 MG X 42 ORAL TABLET 0.5mg daily for 3 days, then 0.5mg BID for 4 days, then 1mg BID VARENICLINE TARTRATE 74739071097 Active Nata Duran MD Active DAILY MULTIVITAMIN ORAL CAPSULE 1 tablet by mouth MULTIPLE VITAMINS-MINERALS 65875908861 Active Eliza Chen LPN Active [facility] MELATONIN 10 MG ORAL CAPSULE 1 tablet by mouth at bedtime MELATONIN 67028543211 Active Elizaeileen Chen FAUCETS ASSEMBLER Active [facility] LUTEIN CAPSULE 1 tablet once daily LUTEIN CAPS 81484591319 Active Eliza Chen FAUCETS ASSEMBLER Active GLUCOSAMINE 500 MG ORAL CAPSULE 2 capsules BID GLUCOSAMINE SULFATE 96635771676 Active Eliza Chen LPN Active CARDIOSTEROL 500-32 MG ORAL CAPSULE PHYTOSTEROL ESTERS-FISH OIL 45881992140 Active Eliza Chen FAUCETS ASSEMBLER Active ADULT ASPIRIN LOW STRENGTH 81 MG ORAL TABLET DISINTEGRATING 1 tablet once daily ASPIRIN 35735425449 [facility] ACETAMINOPHEN EXTRA STRENGTH 500 MG ORAL CAPSULE as needed ACETAMINOPHEN 42473928542 Active Eliza Chen FAUCETS ASSEMBLER Active OXYBUTYNIN CHLORIDE 5 MG ORAL TABLET 1 tab po daily as needed for urinary symptoms OXYBUTYNIN CHLORIDE 41124384198 No Longer Active Eliza Chen LPN Active AMMONIUM LACTATE 12 % EXTERNAL LOTION use topically as directed for itching/ rash AMMONIUM LACTATE 12424183827 No Longer Active Eliza Chen LPN Active SPIRONOLACTONE 25 MG ORAL TABLET 1 tablet by mouth daily for blood pressure SPIRONOLACTONE 54539401743 No Longer Active Paris Adamson FORKLIFT TRUCK MECHANIC Active MOMETASONE FUROATE 0.1 % EXTERNAL OINTMENT use as directed MOMETASONE FUROATE 47879786510 Active Paris Adamson APRN Active ROSUVASTATIN CALCIUM 10 MG ORAL TABLET 1 tab po for cholestrol ROSUVASTATIN CALCIUM 13015838723 Active Paris Danielll FORKLIFT TRUCK MECHANIC Active TRAZODONE HCL 100 MG ORAL TABLET 1 po qHS for Insomnia TRAZODONE HCL 16795629594 Active Paris Danielll FORKLIFT TRUCK MECHANIC Active OMEPRAZOLE 20 MG ORAL CAPSULE DELAYED RELEASE 1 cap by mouth daily OMEPRAZOLE 43853159760 Active Paris Arell FORKLIFT TRUCK MECHANIC Active CLOPIDOGREL BISULFATE 75 MG ORAL TABLET 1 tab po daily for hx embolism 12/10 CLOPIDOGREL BISULFATE 97527426797 Active Paris Danielll FORKLIFT TRUCK MECHANIC Active AMLODIPINE BESYLATE 10 MG ORAL TABLET 1 tablet by mouth daily for blood pressure AMLODIPINE BESYLATE 67800139170 Active Paris Arell FORKLIFT TRUCK MECHANIC Active LOSARTAN POTASSIUM 100 MG ORAL TABLET 1 pill by mouth daily, for blood pressure LOSARTAN POTASSIUM 49162099276 Active Paris Danielll FORKLIFT TRUCK MECHANIC Active SPIRONOLACTONE 25 MG ORAL TABLET 1 tablet by mouth daily for blood pressure SPIRONOLACTONE 25 MG ORAL TABLET 409670 SPIRONOLACTONE Inactive AMMONIUM LACTATE 12 % EXTERNAL LOTION use topically as directed for itching/ rash AMMONIUM LACTATE 12 % EXTERNAL LOTION 814899 AMMONIUM LACTATE Inactive OXYBUTYNIN CHLORIDE 5 MG ORAL TABLET 1 tab po daily as needed for urinary symptoms OXYBUTYNIN CHLORIDE 5 MG ORAL TABLET 267051 OXYBUTYNIN CHLORIDE Inactive Vital Signs Date Name [...] dipstick 3+ Negative sodium, serum 141 mmol/L 704-538 6386/11/29 carbon dioxide, venous blood 30.5 mmol/L 21.0-32.0 [...] Panel, HGBA1C, Thyroid Stimulati ... - Hematology hemoglobin, blood 11.6 g/dL 14.0-18.0 hematocrit, blood 34.1 % 40.0-54.0 mean corpuscular volume, RBC 99 fL 80-97 mean corpuscular hemoglobin, RBC 33.6 pg 27.0-31.2 mean corpuscular hemoglobin concentration, RBC 34.0 G/DL % 31.8- 35.4 red blood cell distribution width 12.2 % 11.6-14.8 platelet count 201 10^3/MM^3 10*3/mm3 722-432 0061/11/29 erythrocyte (RBC) count 3.45 10^6/MM^3 10*6/mm3 4.50-6.50 lymphocytes as percent of blood leukocytes 22.2 % 20.5-51.1 monocytes as percent of blood leukocytes 6.0 % 1.7-9.3 neutrophils as percent of blood leukocytes 67.5 % 42.2-75.2 leukocyte count, blood 6.6 10^3/MM^3 10*3/mm3 4.6-10.2 Lab Report: CBC W/DIFF, Comp. Metabolic Panel, HGBA1C, Thyroid Stimulati ... - Urinalysis urobilinogen, urine, semiquantitative (dipstick) 0.2 E.U./dL Normal leukocyte esterase, urine, by dipstick Negative Negative nitrite, urine, semiquantitative Negative Negative glucose, urine, semiquantitative Negative Negative ketones, urine, by test strip Negative Negative bilirubin, urine Negative Negative urine color Dark yellow Colorless;Lightyellow;Straw;Yellow appearance, urine Cloudy Clear specific gravity, urine 1.025 1.000-1.030 pH, urine, semiquantitative 6.0 5.0-8.5 Office Visit: CN-hematuria - Chemistry protein, total [...] No [facility] - Basic LDL target level 100 mg/dL Office Visit: [facility]--GET EST.-PER [facility]-6-26-17 - Chemistry HDL cholesterol, serum, target level 40 mg/dL triglyceride, target level 150 mg/dL cholesterol, target level 200 mg/dL Encounters Code Encounter Date Provider Facility CPT-55156 Level 3 Est. Patient 17:28:14 FLARE MAKER Nata Duran MD [facility] CPT-06274 Level 3 Est. Patient 16:10:21 FLARE MAKER Nata Duran MD [facility] CPT-36736 Level 4 Est. Patient 16:18:08 FLARE MAKER Paris Adamson [facility] CPT-99013 Level 4 Est. Patient 08:23:02 CDT David Nolasco MD [facility] CPT-45402 Level 4 Est. Patient 07:23:[address] [facility] CPT-67660 Level 4 New Patient 14:19:32 CDT Nata Duran MD [facility] Procedures Code Procedure Name Date Entry Date Standard Description CPT-05154 Postop F/U Visit 10:53:13 CDT CPT-73627 Chest 2V Frontal and Lat - XRAY USE ONLY 14:13:50 FLARE MAKER CPT-68324 Bladder Washing 10:54:10 CDT CPT-55403 Needle Biopsy - Prostate 14:19:32 CDT CPT-41750 Cystoscopy 14:19:32 CDT
--- OUTSIDE RECORDS SUMMARY | 2017-09-04 06:40 | XMS REPORT | Clinical Summary ---
Author Author Admin, SKYLA Organization [employer] Address Unknown Phone Unavailable Allergies, Adverse Reactions, [...] by mouth daily for blood pressure SPIRONOLACTONE 20882277002 No Longer Active Paris Rodriguez APRN Active AMMONIUM LACTATE 12 % EXTERNAL LOTION use topically as directed for itching/ rash AMMONIUM LACTATE 13302143476 Active Paris Michael CIRCULAR GANG SAW OPERATOR Active OXYBUTYNIN CHLORIDE 5 MG ORAL TABLET 1 tab po daily as needed for urinary symptoms OXYBUTYNIN CHLORIDE 16770848981 Active Pairs Rodriguez APRN Active MOMETASONE FUROATE 0.1 % EXTERNAL OINTMENT use as directed MOMETASONE FUROATE 04546284443 Active Paris Rodriguez CIRCULAR GANG SAW OPERATOR Active ROSUVASTATIN CALCIUM 10 MG ORAL TABLET 1 tab po for cholestrol ROSUVASTATIN CALCIUM 74663605648 Active Paris Rodriguez CIRCULAR GANG SAW OPERATOR Active TRAZODONE HCL 100 MG ORAL TABLET 1 po qHS for Insomnia TRAZODONE HCL 03649792727 Active Paris Rodriguez APRN Active OMEPRAZOLE 20 MG ORAL CAPSULE DELAYED RELEASE 1 cap by mouth daily OMEPRAZOLE 57887095583 Active Paris Rodriguez CIRCULAR GANG SAW OPERATOR Active CLOPIDOGREL BISULFATE 75 MG ORAL TABLET 1 tab po daily for hx embolism 12/10 CLOPIDOGREL BISULFATE 02403438705 Active Paris Rodriguez CIRCULAR GANG SAW OPERATOR Active AMLODIPINE BESYLATE 10 MG ORAL TABLET 1 tablet by mouth daily for blood pressure AMLODIPINE BESYLATE 40716130223 Active Paris Rodriguez APRN Active LOSARTAN POTASSIUM 100 MG ORAL TABLET 1 pill by mouth daily, for blood pressure LOSARTAN POTASSIUM 76499795878 Active Paris Rodriguez APRN Active SPIRONOLACTONE 25 MG ORAL TABLET 1 tablet by mouth daily for blood pressure SPIRONOLACTONE 25 MG ORAL TABLET 192443 SPIRONOLACTONE Inactive Vital Signs Date Name Value [...] ... - Chemistry sodium, serum 141 mmol/L 561-144 3696/11/29 carbon dioxide, venous blood 30.5 mmol/L 21.0-32.0 [...] Clean Catch culture status No Office Visit: [facility]--GET EST[facility]PER [facility]-6-26-17 - Basic LDL target level 100 mg/dL Office Visit: [facility]--GET EST.-PER [id number]-5-26-17 - Chemistry HDL cholesterol, serum, target level 40 mg/dL triglyceride, target level 150 mg/dL cholesterol, target level 200 mg/dL Encounters Code Encounter Date Provider Facility CPT-58670 Level 4 Est. Patient 16:18:08 CARRIER ASSOCIATE Paris Rodriguez [facility] CPT-97283 Level 4 Est. Patient 08:23:02 CDT David Nolasco MD [facility] CPT-75080 Level 4 Est. Patient 07:23:20 CDT Paris Rodriguez [facility] CPT-53324 Level 4 New Patient 14:19:32 CDT Nata Duran MD [facility] Procedures Code Procedure Name Date Entry Date Standard Description CPT-93685 Chest 2V Frontal and Lat - XRAY USE ONLY 14:13:50 CARRIER ASSOCIATE CPT-35591 Bladder Washing 10:54:10 CDT CPT-20989 Needle Biopsy - Prostate 14:19:32 CDT CPT-88541 Cystoscopy 14:19:32 CDT
--- OUTSIDE RECORDS SUMMARY | 2017-09-04 06:40 | XMS REPORT | Clinical Summary ---
Author Author Admin, SKYLA Organization [employer] Address Unknown Phone Unavailable Allergies, Adverse [...] by mouth daily for blood pressure SPIRONOLACTONE 35629370092 No Longer Active Paris Rodriguez APRN Active AMMONIUM LACTATE 12 % EXTERNAL LOTION use topically as directed for itching/ rash AMMONIUM LACTATE 85090509501 Active Paris Michael BUTTON MAKER AND INSTALLER Active OXYBUTYNIN CHLORIDE 5 MG ORAL TABLET 1 tab po daily as needed for urinary symptoms OXYBUTYNIN CHLORIDE 53758176660 Active Paris Rodriguez APRN Active MOMETASONE FUROATE 0.1 % EXTERNAL OINTMENT use as directed MOMETASONE FUROATE 05093525500 Active Paris Rodriguez APRN Active ROSUVASTATIN CALCIUM 10 MG ORAL TABLET 1 tab po for cholestrol ROSUVASTATIN CALCIUM 55345825410 Active Paris Rodriguez APRN Active TRAZODONE HCL 100 MG ORAL TABLET 1 po qHS for Insomnia TRAZODONE HCL 17638067089 Active Paris Rodriguez APRN Active OMEPRAZOLE 20 MG ORAL CAPSULE DELAYED RELEASE 1 cap by mouth daily OMEPRAZOLE 86384643963 Active Paris Rodriguez APRN Active CLOPIDOGREL BISULFATE 75 MG ORAL TABLET 1 tab po daily for hx embolism 12/10 CLOPIDOGREL BISULFATE 26850329050 Active Paris Rodriguez APRN Active AMLODIPINE BESYLATE 10 MG ORAL TABLET 1 tablet by mouth daily for blood pressure AMLODIPINE BESYLATE 66800552895 Active Paris Rodriguez APRN Active LOSARTAN POTASSIUM 100 MG ORAL TABLET 1 pill by mouth daily, for blood pressure LOSARTAN POTASSIUM 26386400484 Active Paris Rodriguez APRN Active SPIRONOLACTONE 25 MG ORAL TABLET 1 tablet by mouth daily for blood pressure SPIRONOLACTONE 25 MG ORAL TABLET 669215 SPIRONOLACTONE Inactive Vital Signs Date Name Value [...] protein, urine, semiquantitative (dipstick) negative Office Visit: [place] [employer]--GET EST.-PER [facility]-6-26-17 - Basic LDL target level 100 mg/dL Office Visit: [place] [employer]--GET EST.-PER [facility]-6-26-17 - Chemistry HDL cholesterol, serum, target level 40 mg/dL triglyceride, target level 150 mg/dL cholesterol, target level 200 mg/dL Encounters Code Encounter Date Provider Facility CPT-36194 Level 4 Est. Patient 08:23:02 CDT David Nolasco MD [facility] CPT-50118 Level 4 Est. Patient 07:23:20 CDT Paris Rodriguez APRN [facility] CPT-28883 Level 4 New Patient 14:19:32 CDT Nata Duran MD [facility] Procedures Code Procedure Name Date Entry Date Standard Description CPT-77579 Chest 2V Frontal and Lat - XRAY USE ONLY 14:13:50 CLOTH PAINTER CPT-69399 Bladder Washing 10:54:10 CDT CPT-51739 Needle Biopsy - Prostate 14:19:32 CDT CPT-37471 Cystoscopy 14:19:32 CDT
--- OUTSIDE RECORDS SUMMARY | 2017-09-04 06:41 | XMS REPORT | Clinical Summary ---
Author Author Admin, SKYLA Organization [employer] Address Unknown Phone Unavailable Allergies, Adverse Reactions, [...] Active Paris Rodriguez APRN Unspecified essential hypertension Medication List Medication Instructions Start Date Stop Date Generic Name NDC Status Provider Patient Instruction AMMONIUM LACTATE 12 % EXT LOTN use topically as directed for itching/rash AMMONIUM LACTATE 95044716393 Active Paris Rodriguez APRN Active OXYBUTYNIN CHLORIDE 5 MG TABS 1 tab po daily as needed for urinary symptoms OXYBUTYNIN CHLORIDE 67538678584 Active Paris Rodriguez APRN Active MOMETASONE FUROATE 0.1 % EXT OINT use as directed MOMETASONE FUROATE 65063923133 Active Paris Rodriguez APRN Active ROSUVASTATIN CALCIUM 10 MG ORAL TABS 1 tab po for cholestrol ROSUVASTATIN CALCIUM 15473214375 Active Paris Rodriguez APRN Active TRAZODONE HCL 100 MG TAB 1 po qHS for Insomnia TRAZODONE HCL 11052387451 Active Paris Rodriguez APRN Active OMEPRAZOLE 20 MG CPDR 1 cap by mouth daily OMEPRAZOLE 07613995456 Active Paris Rodriguez APRN Active CLOPIDOGREL BISULFATE 75 MG ORAL TABS 1 tab po daily for hx embolism CLOPIDOGREL BISULFATE 77084844746 Active Paris Rodriguez APRN Active AMLODIPINE BESYLATE 10 MG TABS 1 tablet by mouth daily for blood pressure AMLODIPINE BESYLATE 30998609254 Active Paris Rodriguez APRN Active SPIRONOLACTONE 25 MG TAB 1 tablet by mouth daily for blood pressure SPIRONOLACTONE 76122475339 Active Paris Rodriguez APRN Active LOSARTAN POTASSIUM 100 MG TABS 1 pill by mouth daily, for blood pressure 2016 LOSARTAN POTASSIUM 01778906148 Active Paris Rodriguez APRN Active Vital Signs Date Name Value Unit Range Description blood pressure, diastolic - 8462-4 75 mm[Hg] BP stevens blood pressure, systolic - 8480-6 138 mm[Hg] BP sys height E&M - 8302-2 59.5 [in_us] Bdy height pulse rate E&M - 8867-4 80 /min Heart rate temperature E&M 98.6 [degF] Body temperature weight E&M - 3141-9 182 [lb_av] Weight Measured Diagnostic Results Date [...] negative Encounters Code Encounter Date Provider Facility CPT-25438 Level 4 New Patient 14:19:32 DANIELT Nata Duran MD [facility] Procedures Code Procedure Name Date Entry Date Standard Description CPT-00868 Bladder Washing 10:54:10 CDT CPT-46324 Needle Biopsy - Prostate 14:19:32 CDT CPT-43858 Cystoscopy 14:19:32 CDT
--- OUTSIDE RECORDS SUMMARY | 2017-09-04 06:41 | XMS REPORT | Clinical Summary ---
Author Author Admin, SKYLA Organization [employer] Address Unknown Phone Unavailable Allergies, Adverse Reactions, [...] by mouth daily for blood pressure SPIRONOLACTONE 07487483835 No Longer Active Paris Rodriguez APRN Active AMMONIUM LACTATE 12 % EXTERNAL LOTION use topically as directed for itching/ rash AMMONIUM LACTATE 36133227311 Active Paris Michael YARD HAND Active OXYBUTYNIN CHLORIDE 5 MG ORAL TABLET 1 tab po daily as needed for urinary symptoms OXYBUTYNIN CHLORIDE 92449405970 Active Paris Rodriguez APRN Active MOMETASONE FUROATE 0.1 % EXTERNAL OINTMENT use as directed MOMETASONE FUROATE 56379019853 Active Paris Rodriguez APRN Active ROSUVASTATIN CALCIUM 10 MG ORAL TABLET 1 tab po for cholestrol ROSUVASTATIN CALCIUM 19156854015 Active Paris Rodriguez APRN Active TRAZODONE HCL 100 MG ORAL TABLET 1 po qHS for Insomnia TRAZODONE HCL 41725522405 Active Paris Rodriguez APRN Active OMEPRAZOLE 20 MG ORAL CAPSULE DELAYED RELEASE 1 cap by mouth daily OMEPRAZOLE 63216525037 Active Paris Rodriguez APRN Active CLOPIDOGREL BISULFATE 75 MG ORAL TABLET 1 tab po daily for hx embolism 12/10 CLOPIDOGREL BISULFATE 53636266339 Active Paris Rodriguez APRN Active AMLODIPINE BESYLATE 10 MG ORAL TABLET 1 tablet by mouth daily for blood pressure AMLODIPINE BESYLATE 87627315423 Active Paris Rodriguez APRN Active LOSARTAN POTASSIUM 100 MG ORAL TABLET 1 pill by mouth daily, for blood pressure LOSARTAN POTASSIUM 56238185152 Active Paris Rodriguez APRN Active SPIRONOLACTONE 25 MG ORAL TABLET 1 tablet by mouth daily for blood pressure SPIRONOLACTONE 25 MG ORAL TABLET 153547 SPIRONOLACTONE Inactive Vital Signs Date Name Value [...] ... - Chemistry sodium, serum 141 mmol/L 659-926 2669/11/29 carbon dioxide, venous blood 30.5 mmol/L 21.0-32.0 [...] Catch culture status No Office Visit: [facility]--GET EST.-PER [facility]-6-26-17 - Basic LDL target level 100 mg/dL Office Visit: [facility]--GET EST.-PER [facility]-6-26-17 - Chemistry HDL cholesterol, serum, target level 40 mg/dL triglyceride, target level 150 mg/dL cholesterol, target level 200 mg/dL Encounters Code Encounter Date Provider Facility CPT-90940 Level 4 Est. Patient 08:23:02 CDT David Nolasco MD [facility] CPT-78690 Level 4 Est. Patient 07:23:20 CDT Paris Rodriguez APRN [facility] CPT-75128 Level 4 New Patient 14:19:32 CDT Nata Duran MD [facility] Procedures Code Procedure Name Date Entry Date Standard Description CPT-25816 Chest 2V Frontal and Lat - XRAY USE ONLY 14:13:50 SAFETY SECURITY OFFICER CPT-86608 Bladder Washing 10:54:10 CDT CPT-46623 Needle Biopsy - Prostate 14:19:32 CDT CPT-54941 Cystoscopy 14:19:32 CDT
--- OUTSIDE RECORDS SUMMARY | 2017-09-04 06:41 | XMS REPORT | Clinical Summary ---
Author Author Admin, SKYLA Organization [employer] Address Unknown Phone Unavailable Allergies, Adverse Reactions, Alerts Allergy Name Reaction Description Start Date Severity Status Provider ALDACTONE Critical Active Eliza Chen TAX SERVICES INTERN HM LORATADINE Critical Active Nata Duran MD [...] 4 days, then 1mg BID VARENICLINE TARTRATE 43650843227 Active Nata Duran MD Active DAILY MULTIVITAMIN ORAL CAPSULE 1 tablet by mouth MULTIPLE VITAMINS-MINERALS 79723606661 Active Eliza Chen TAX SERVICES INTERN Active [facility] MELATONIN 10 MG ORAL CAPSULE 1 tablet by mouth at bedtime MELATONIN 18218779145 Active Eliza Chen TAX SERVICES INTERN Active [facility] LUTEIN CAPSULE 1 tablet once daily LUTEIN CAPS 73098151899 Active Eliza Chen TAX SERVICES INTERN Active GLUCOSAMINE 500 MG ORAL CAPSULE 2 capsules BID GLUCOSAMINE SULFATE 98610058084 [facility] CARDIOSTEROL 500-32 MG ORAL CAPSULE PHYTOSTEROL ESTERS-FISH OIL 71355088913 Active Eliza Chen TAX SERVICES INTERN Active ADULT ASPIRIN LOW STRENGTH 81 MG ORAL TABLET DISINTEGRATING 1 tablet once daily ASPIRIN 08789395327 Active [facility] Active ACETAMINOPHEN EXTRA STRENGTH 500 MG ORAL CAPSULE as needed ACETAMINOPHEN 70372270175 Active Eliza Chen TAX SERVICES INTERN Active OXYBUTYNIN CHLORIDE 5 MG ORAL TABLET 1 tab po daily as needed for urinary symptoms OXYBUTYNIN CHLORIDE 80033357879 No Longer Active Eliza Chen TAX SERVICES INTERN Active AMMONIUM LACTATE 12 % EXTERNAL LOTION use topically as directed for itching/ rash AMMONIUM LACTATE 92839782371 No Longer Active Eliza Chen TAX SERVICES INTERN Active SPIRONOLACTONE 25 MG ORAL TABLET 1 tablet by mouth daily for blood pressure SPIRONOLACTONE 49449073119 No Longer Active Paris Adamson INSPECTOR RETURNED MATERIALS Active MOMETASONE FUROATE 0.1 % EXTERNAL OINTMENT use as directed MOMETASONE FUROATE 37266611021 Active Paris Arell INSPECTOR RETURNED MATERIALS Active ROSUVASTATIN CALCIUM 10 MG ORAL TABLET 1 tab po for cholestrol ROSUVASTATIN CALCIUM 06331430198 Active Paris Sanchezll INSPECTOR RETURNED MATERIALS Active TRAZODONE HCL 100 MG ORAL TABLET 1 po qHS for Insomnia TRAZODONE HCL 66807560974 Active Paris Adamson INSPECTOR RETURNED MATERIALS Active OMEPRAZOLE 20 MG ORAL CAPSULE DELAYED RELEASE 1 cap by mouth daily OMEPRAZOLE 08383138887 Active Paris Adamson INSPECTOR RETURNED MATERIALS Active CLOPIDOGREL BISULFATE 75 MG ORAL TABLET 1 tab po daily for hx embolism 12/10 CLOPIDOGREL BISULFATE 97419851569 Active Paris Sanchezll INSPECTOR RETURNED MATERIALS Active AMLODIPINE BESYLATE 10 MG ORAL TABLET 1 tablet by mouth daily for blood pressure AMLODIPINE BESYLATE 60371377686 Active Paris Danielll INSPECTOR RETURNED MATERIALS Active LOSARTAN POTASSIUM 100 MG ORAL TABLET 1 pill by mouth daily, for blood pressure LOSARTAN POTASSIUM 04928240391 Active Paris Adamson INSPECTOR RETURNED MATERIALS Active SPIRONOLACTONE 25 MG ORAL TABLET 1 tablet by mouth daily for blood pressure SPIRONOLACTONE 25 MG ORAL TABLET 492341 SPIRONOLACTONE Inactive AMMONIUM LACTATE 12 % EXTERNAL LOTION use topically as directed for itching/ rash AMMONIUM LACTATE 12 % EXTERNAL LOTION 971005 AMMONIUM LACTATE Inactive OXYBUTYNIN CHLORIDE 5 MG ORAL TABLET 1 tab po daily as needed for urinary symptoms OXYBUTYNIN CHLORIDE 5 MG ORAL TABLET 113255 OXYBUTYNIN CHLORIDE Inactive Vital Signs Date Name [...] dipstick 3+ Negative sodium, serum 141 mmol/L 417-985 8238/11/29 carbon dioxide, venous blood 30.5 mmol/L 21.0-32.0 [...] Clean Catch culture status No [facility] Basic LDL target level 100 mg/dL Office Visit: [place] [facility] EST[facility]-6-26-17 - Chemistry HDL cholesterol, serum, target level 40 mg/dL triglyceride, target level 150 mg/dL cholesterol, target level 200 mg/dL Encounters Code Encounter Date Provider Facility CPT-08552 Level 3 Est. Patient 17:28:14 CANDY WRAPPING MACHINE OPERATOR Nata Duran MD [facility] CPT-72690 Level 3 Est. Patient 16:10:21 CANDY WRAPPING MACHINE OPERATOR Nata Duran MD [facility] CPT-00341 Level 4 Est. Patient 16:18:08 CANDY WRAPPING MACHINE OPERATOR Paris Adamson [facility] CPT-67140 Level 4 Est. Patient 08:23:02 CDT David Nolasco MD [facility] CPT-00669 Level 4 Est. Patient 07:23:20 CDT Paris Adamson [facility] CPT-25284 Level 4 New Patient 14:19:32 CDT Nata Duran MD [facility] Procedures Code Procedure Name Date Entry Date Standard Description CPT-94845 Chest 2V Frontal and Lat - XRAY USE ONLY 14:13:50 CANDY WRAPPING MACHINE OPERATOR CPT-03784 Bladder Washing 10:54:10 CDT CPT-59950 Needle Biopsy - Prostate 14:19:32 CDT CPT-12499 Cystoscopy 14:19:32 CDT
--- OUTSIDE RECORDS SUMMARY | 2017-09-04 06:42 | XMS REPORT | Clinical Summary ---
Author Author Admin, SKYLA Organization [employer] Address Unknown Phone Unavailable Allergies, Adverse Reactions, [...] by mouth daily for blood pressure SPIRONOLACTONE 83071387620 No Longer Active Paris Rodriguez APRN Active AMMONIUM LACTATE 12 % EXT LOTN use topically as directed for itching/rash AMMONIUM LACTATE 72669106614 Active Paris Rodriguez APRN Active OXYBUTYNIN CHLORIDE 5 MG TABS 1 tab po daily as needed for urinary symptoms OXYBUTYNIN CHLORIDE 98543905762 Active Paris Rodriguez APRN Active MOMETASONE FUROATE 0.1 % EXT OINT use as directed MOMETASONE FUROATE 24704480140 Active Paris Michael RESIDENCE DIRECTOR Active ROSUVASTATIN CALCIUM 10 MG ORAL TABS 1 tab po for cholestrol ROSUVASTATIN CALCIUM 22968844651 Active Paris Rodriguez APRN Active TRAZODONE HCL 100 MG TAB 1 po qHS for Insomnia TRAZODONE HCL 09710338090 Active Paris Rodriguez APRN Active OMEPRAZOLE 20 MG CPDR 1 cap by mouth daily OMEPRAZOLE 42764202432 Active Paris Rodriguez APRN Active CLOPIDOGREL BISULFATE 75 MG ORAL TABS 1 tab po daily for hx embolism CLOPIDOGREL BISULFATE 74437423389 Active Paris Rodriguez APRN Active AMLODIPINE BESYLATE 10 MG TABS 1 tablet by mouth daily for blood pressure AMLODIPINE BESYLATE 05855090541 Active Paris Rodriguez APRN Active LOSARTAN POTASSIUM 100 MG TABS 1 pill by mouth daily, for blood pressure 2016 LOSARTAN POTASSIUM 97758790219 Active Paris Rodriguez APRN Active SPIRONOLACTONE 25 MG TAB 1 tablet by mouth daily for blood pressure SPIRONOLACTONE 25 MG TAB 681448 SPIRONOLACTONE Inactive Vital Signs Date Name Value [...] protein, urine, semiquantitative (dipstick) negative [facility]-6-26-17 - Basic LDL target level 100 mg/dL [facility]-6-26-17 - Chemistry HDL cholesterol, serum, target level 40 mg/dL triglyceride, target level 150 mg/dL cholesterol, target level 200 mg/dL Encounters Code Encounter Date Provider Facility CPT-74472 Level 4 Est. Patient 08:23:02 CDT David Nolasco MD [facility] CPT-90733 Level 4 Est. Patient 07:23:20 CDT Paris Rodriguez APRN [facility] CPT-62233 Level 4 New Patient 14:19:32 CDT Nata Duran MD [facility] Procedures Code Procedure Name Date Entry Date Standard Description CPT-21269 Bladder Washing 10:54:10 CDT CPT-95947 Needle Biopsy - Prostate 14:19:32 T CPT-95128 Cystoscopy 14:19:32 [facility]
--- OUTSIDE RECORDS SUMMARY | 2017-09-04 06:42 | XMS REPORT | Clinical Summary ---
Author Author Admin, SKYLA Organization [employer] Address Unknown Phone Unavailable Allergies, Adverse Reactions, Alerts Allergy Name Reaction Description Start Date Severity Status Provider HM LORATADINE Critical Active Naat Duran MD HYDROCHLOROTHIAZIDE Critical Active Nata Duran [...] by mouth daily for blood pressure SPIRONOLACTONE 20809102103 No Longer Active Paris Rodriguez APRN Active AMMONIUM LACTATE 12 % EXT LOTN use topically as directed for itching/rash AMMONIUM LACTATE 95090424370 Active Paris Rodriguez APRN Active OXYBUTYNIN CHLORIDE 5 MG TABS 1 tab po daily as needed for urinary symptoms OXYBUTYNIN CHLORIDE 84110891000 Active Paris Rodriguez APRN Active MOMETASONE FUROATE 0.1 % EXT OINT use as directed MOMETASONE FUROATE 47536519193 Active Paris Michael MICROFICHE CAMERA OPERATOR Active ROSUVASTATIN CALCIUM 10 MG ORAL TABS 1 tab po for cholestrol ROSUVASTATIN CALCIUM 91105005683 Active Paris Rodriguez APRN Active TRAZODONE HCL 100 MG TAB 1 po qHS for Insomnia TRAZODONE HCL 88438412888 Active Paris Rodriguez APRN Active OMEPRAZOLE 20 MG CPDR 1 cap by mouth daily OMEPRAZOLE 46198501115 Active Paris Rodriguez APRN Active CLOPIDOGREL BISULFATE 75 MG ORAL TABS 1 tab po daily for hx embolism CLOPIDOGREL BISULFATE 79004251617 Active Paris Rodriguez APRN Active AMLODIPINE BESYLATE 10 MG TABS 1 tablet by mouth daily for blood pressure AMLODIPINE BESYLATE 02822162626 Active Paris Rodriguez APRN Active LOSARTAN POTASSIUM 100 MG TABS 1 pill by mouth daily, for blood pressure 2016 LOSARTAN POTASSIUM 70144252910 Active Paris Rodriguez APRN Active SPIRONOLACTONE 25 MG TAB 1 tablet by mouth daily for blood pressure SPIRONOLACTONE 25 MG TAB 101089 SPIRONOLACTONE Inactive Vital Signs Date Name Value [...] protein, urine, semiquantitative (dipstick) negative Office Visit: [facility]--GET EST.-PER [facility]-6-26-17 - Basic LDL target level 100 mg/dL Office Visit: [facility]--GET EST.-PER [facility]-6-26-17 - Chemistry HDL cholesterol, serum, target level 40 mg/dL triglyceride, target level 150 mg/dL cholesterol, target level 200 mg/dL Encounters Code Encounter Date Provider Facility CPT-20022 Level 4 Est. Patient 08:23:02 CDT David Nolasco MD [facility] CPT-67530 Level 4 Est. Patient 07:23:20 CDT Paris Rodriguez APRN [facility] CPT-20292 Level 4 New Patient 14:19:32 CDT Nata Duran MD [facility] Procedures Code Procedure Name Date Entry Date Standard Description CPT-28154 Bladder Washing 10:54:10 CDT CPT-08491 Needle Biopsy - Prostate 14:19:32 T CPT-23904 Cystoscopy 14:19:32 [facility]
--- OUTSIDE RECORDS SUMMARY | 2017-09-04 06:42 | XMS REPORT | Clinical Summary ---
Author Author Admin, SKYLA Organization [facility] [employer] Address Unknown Phone Unavailable Allergies, Adverse Reactions, [...] by mouth daily for blood pressure SPIRONOLACTONE 64233348894 No Longer Active Paris Rodriguez APRN Active AMMONIUM LACTATE 12 % EXTERNAL LOTION use topically as directed for itching/ rash AMMONIUM LACTATE 82776170497 Active Paris Rodriguez CONNIE Active OXYBUTYNIN CHLORIDE 5 MG ORAL TABLET 1 tab po daily as needed for urinary symptoms OXYBUTYNIN CHLORIDE 12177423326 Active Paris Rodriguez PROCESS DEVELOPMENT MANAGER Active MOMETASONE FUROATE 0.1 % EXTERNAL OINTMENT use as directed MOMETASONE FUROATE 06944052616 Active Paris Michael PROCESS DEVELOPMENT MANAGER Active ROSUVASTATIN CALCIUM 10 MG ORAL TABLET 1 tab po for cholestrol ROSUVASTATIN CALCIUM 44092748867 Active Paris Michael CONNIE Active TRAZODONE HCL 100 MG ORAL TABLET 1 po qHS for Insomnia TRAZODONE HCL 50206431805 Active Paris Michael CONNIE Active OMEPRAZOLE 20 MG ORAL CAPSULE DELAYED RELEASE 1 cap by mouth daily OMEPRAZOLE 94838253750 Active Paris Michael PROCESS DEVELOPMENT MANAGER Active CLOPIDOGREL BISULFATE 75 MG ORAL TABLET 1 tab po daily for hx embolism 12/10 CLOPIDOGREL BISULFATE 33875752435 Active Paris Rodriguez PROCESS DEVELOPMENT MANAGER Active AMLODIPINE BESYLATE 10 MG ORAL TABLET 1 tablet by mouth daily for blood pressure AMLODIPINE BESYLATE 57294162855 Active Paris Michael CONNIE Active LOSARTAN POTASSIUM 100 MG ORAL TABLET 1 pill by mouth daily, for blood pressure LOSARTAN POTASSIUM 09703209330 Active Paris Rodriguez PROCESS DEVELOPMENT MANAGER Active SPIRONOLACTONE 25 MG ORAL TABLET 1 tablet by mouth daily for blood pressure SPIRONOLACTONE 25 MG ORAL TABLET 850326 SPIRONOLACTONE Inactive Vital Signs Date Name Value [...] dipstick 3+ Negative sodium, serum 141 mmol/L 461-449 5215/11/29 carbon dioxide, venous blood 30.5 mmol/L 21.0-32.0 [...] Clean Catch culture status No Office Visit: [place] [facility] [facility] [place] [id number] - Basic LDL target level 100 mg/dL Office Visit: [place] [facility] [facility] [place] [id number] - Chemistry HDL cholesterol, serum, target level 40 mg/dL triglyceride, target level 150 mg/dL cholesterol, target level 200 mg/dL Encounters Code Encounter Date Provider Facility CPT-82858 Level 4 Est. Patient 16:18:08 MANAGER INSURANCE Paris [facility] CPT-11373 Level 4 Est. Patient 08:23:02 CDT David Nolasco MD [facility] CPT-79498 Level 4 Est. Patient 07:23:20 CDT Paris Rodriguez [facility] CPT-44363 Level 4 New Patient 14:19:32 CDT Nata Duran MD [facility] Procedures Code Procedure Name Date Entry Date Standard Description CPT-15126 Chest 2V Frontal and Lat - XRAY USE ONLY 14:13:50 MANAGER INSURANCE CPT-22007 Bladder Washing 10:54:10 CDT CPT-88901 Needle Biopsy - Prostate 14:19:32 CDT CPT-26103 Cystoscopy 14:19:32 CDT
--- OUTSIDE RECORDS SUMMARY | 2017-09-04 06:43 | XMS REPORT | Clinical Summary ---
Author Author Admin, SKYLA Organization [facility] [employer] Address Unknown Phone Unavailable Allergies, Adverse Reactions, [...] Other malaise and fatigue Dizziness 780.4 Active aPris Rodriguez APRN Dizziness and giddiness Unsteady gait 781.2 Active Paris Rodriguez APRN Abnormality of gait Anemia 285.9 Active Paris Rodriguez APRN Anemia, unspecified Medication List Medication Instructions Start Date Stop Date Generic Name NDC Status Provider Patient Instruction SPIRONOLACTONE 25 MG ORAL TABLET 1 tablet by mouth daily for blood pressure SPIRONOLACTONE 15327096782 No Longer Active Paris Rodriguez APRN Active AMMONIUM LACTATE 12 % EXTERNAL LOTION use topically as directed for itching/ rash AMMONIUM LACTATE 18551541962 Active Paris Rodriguez CONNIE Active OXYBUTYNIN CHLORIDE 5 MG ORAL TABLET 1 tab po daily as needed for urinary symptoms OXYBUTYNIN CHLORIDE 99137316403 Active Paris Rodriguez GRADES 1 THROUGH 5 TEACHER Active MOMETASONE FUROATE 0.1 % EXTERNAL OINTMENT use as directed MOMETASONE FUROATE 86062408082 Active Paris Michael GRADES 1 THROUGH 5 TEACHER Active ROSUVASTATIN CALCIUM 10 MG ORAL TABLET 1 tab po for cholestrol ROSUVASTATIN CALCIUM 37849842135 Active Paris Michael CONNIE Active TRAZODONE HCL 100 MG ORAL TABLET 1 po qHS for Insomnia TRAZODONE HCL 99927546602 Active Paris Michael CONNIE Active OMEPRAZOLE 20 MG ORAL CAPSULE DELAYED RELEASE 1 cap by mouth daily OMEPRAZOLE 49010886800 Active Paris Michael GRADES 1 THROUGH 5 TEACHER Active CLOPIDOGREL BISULFATE 75 MG ORAL TABLET 1 tab po daily for hx embolism 12/10 CLOPIDOGREL BISULFATE 27235111875 Active Paris Rodriguez GRADES 1 THROUGH 5 TEACHER Active AMLODIPINE BESYLATE 10 MG ORAL TABLET 1 tablet by mouth daily for blood pressure AMLODIPINE BESYLATE 70285971997 Active Paris Michael CONNIE Active LOSARTAN POTASSIUM 100 MG ORAL TABLET 1 pill by mouth daily, for blood pressure LOSARTAN POTASSIUM 56712601409 Active Paris Rodriguez GRADES 1 THROUGH 5 TEACHER Active SPIRONOLACTONE 25 MG ORAL TABLET 1 tablet by mouth daily for blood pressure SPIRONOLACTONE 25 MG ORAL TABLET 331349 SPIRONOLACTONE Inactive Vital Signs Date Name Value [...] dipstick 3+ Negative sodium, serum 141 mmol/L 458-903 2012/11/29 carbon dioxide, venous blood 30.5 mmol/L 21.0-32.0 [...] Catch culture status No Office Visit: [place] [facility] EST[place] [facility] [place] [id number] - Basic LDL target level 100 mg/dL Office Visit: [place] [facility] [facility] [place] [id number]-9-26-17 - Chemistry HDL cholesterol, serum, target level 40 mg/dL triglyceride, target level 150 mg/dL cholesterol, target level 200 mg/dL Encounters Code Encounter Date Provider Facility CPT-22810 Level 4 Est. Patient 16:18:08 MAIL HANDLER Paris Rodriguez [facility] CPT-37881 Level 4 Est. Patient 08:23:02 CDT David Nolasco MD [facility] CPT-29069 Level 4 Est. Patient 07:23:20 CDT Paris Rodriguez [facility] CPT-40365 Level 4 New Patient 14:19:32 CDT Nata Duran MD [facility] Procedures Code Procedure Name Date Entry Date Standard Description CPT-35309 Chest 2V Frontal and Lat - XRAY USE ONLY 14:13:50 MAIL HANDLER CPT-52402 Bladder Washing 10:54:10 CDT CPT-60780 Needle Biopsy - Prostate 14:19:32 CDT CPT-26330 Cystoscopy 14:19:32 CDT
--- OUTSIDE RECORDS SUMMARY | 2017-09-04 06:43 | XMS REPORT | Clinical Summary ---
Author Author Admin, SKYLA Organization [employer] Address Unknown Phone Unavailable Allergies, Adverse Reactions, [...] by mouth daily for blood pressure SPIRONOLACTONE [id number] No Longer Active Paris Rodriguez APRN Active AMMONIUM LACTATE 12 % EXT LOTN use topically as directed for itching/rash AMMONIUM LACTATE 86002804111 Active Paris Rodriguez APRN Active OXYBUTYNIN CHLORIDE 5 MG TABS 1 tab po daily as needed for urinary symptoms OXYBUTYNIN CHLORIDE 10003143973 Active Paris Rodriguez APRN Active MOMETASONE FUROATE 0.1 % EXT OINT use as directed MOMETASONE FUROATE 38785961468 Active Paris Michael SCRUBBING MACHINE OPERATOR Active ROSUVASTATIN CALCIUM 10 MG ORAL TABS 1 tab po for cholestrol ROSUVASTATIN CALCIUM 46554597424 Active Paris Rodriguez APRN Active TRAZODONE HCL 100 MG TAB 1 po qHS for Insomnia TRAZODONE HCL 51707353000 Active Paris Rodriguez APRN Active OMEPRAZOLE 20 MG CPDR 1 cap by mouth daily OMEPRAZOLE 16469281489 Active Paris Rodriguez APRN Active CLOPIDOGREL BISULFATE 75 MG ORAL TABS 1 tab po daily for hx embolism CLOPIDOGREL BISULFATE 13793320181 Active Paris Rodriguez APRN Active AMLODIPINE BESYLATE 10 MG TABS 1 tablet by mouth daily for blood pressure AMLODIPINE BESYLATE 67533939032 Active Paris Rodriguez APRN Active LOSARTAN POTASSIUM 100 MG TABS 1 pill by mouth daily, for blood pressure 2016 LOSARTAN POTASSIUM 56685874723 Active Paris Rodriguez APRN Active SPIRONOLACTONE 25 MG TAB 1 tablet by mouth daily for blood pressure SPIRONOLACTONE 25 MG TAB 234450 SPIRONOLACTONE Inactive Vital Signs Date Name Value [...] protein, urine, semiquantitative (dipstick) negative Office Visit: [facility]GET EST.-PER [facility]-6-26-17 - Basic LDL target level 100 mg/dL Office Visit: [facility]GET EST.-PER [facility]-6-26-17 - Chemistry HDL cholesterol, serum, target level 40 mg/dL triglyceride, target level 150 mg/dL cholesterol, target level 200 mg/dL Encounters Code Encounter Date Provider Facility CPT-10645 Level 4 Est. Patient 08:23:02 CDT David Nolasco MD [facility] CPT-39541 Level 4 Est. Patient 07:23:20 CDT Paris Rodriguez APRN [facility] CPT-86493 Level 4 New Patient 14:19:32 CDT Nata Duran MD [facility] Procedures Code Procedure Name Date Entry Date Standard Description CPT-10136 Bladder Washing 10:54:10 CDT CPT-63556 Needle Biopsy - Prostate 14:19:32 T CPT-23553 Cystoscopy 14:19:32 [facility]
--- OUTSIDE RECORDS SUMMARY | 2017-09-04 06:43 | XMS REPORT | Clinical Summary ---
Author Author Admin, SKYLA Organization [employer] Address Unknown Phone Unavailable Allergies, Adverse Reactions, Alerts Allergy Name Reaction Description Start Date Severity Status Provider ALDACTONE Critical Active Eliza Chen SIEBEL ADMINISTRATOR HM LORATADINE Critical Active Nata Duran MD [...] 4 days, then 1mg BID VARENICLINE TARTRATE 64034884727 Active Nata Duran MD Active DAILY MULTIVITAMIN ORAL CAPSULE 1 tablet by mouth MULTIPLE VITAMINS-MINERALS 77556236102 Active Eliza Chen LPN Active [facility] MELATONIN 10 MG ORAL CAPSULE 1 tablet by mouth at bedtime MELATONIN 98599314388 Active Elizaeileen Chen SIEBEL ADMINISTRATOR Active [facility] LUTEIN CAPSULE 1 tablet once daily LUTEIN CAPS 75373812876 Active Eliza Chen SIEBEL ADMINISTRATOR Active GLUCOSAMINE 500 MG ORAL CAPSULE 2 capsules BID GLUCOSAMINE SULFATE 52561654832 Active Eliza Chen LPN Active CARDIOSTEROL 500-32 MG ORAL CAPSULE PHYTOSTEROL ESTERS-FISH OIL 11231038237 Active Eliza Chen SIEBEL ADMINISTRATOR Active ADULT ASPIRIN LOW STRENGTH 81 MG ORAL TABLET DISINTEGRATING 1 tablet once daily ASPIRIN 96961220361 [facility] Active ACETAMINOPHEN EXTRA STRENGTH 500 MG ORAL CAPSULE as needed ACETAMINOPHEN 63284277404 Active Eliza Chen SIEBEL ADMINISTRATOR Active OXYBUTYNIN CHLORIDE 5 MG ORAL TABLET 1 tab po daily as needed for urinary symptoms OXYBUTYNIN CHLORIDE 33969602193 No Longer Active Eliza Chen LPN Active AMMONIUM LACTATE 12 % EXTERNAL LOTION use topically as directed for itching/ rash AMMONIUM LACTATE 78059491463 No Longer Active Eliza Chen LPN Active SPIRONOLACTONE 25 MG ORAL TABLET 1 tablet by mouth daily for blood pressure SPIRONOLACTONE 87255259086 No Longer Active Paris Adamson YARROW GATHERER Active MOMETASONE FUROATE 0.1 % EXTERNAL OINTMENT use as directed MOMETASONE FUROATE 72247678509 Active Paris Adamson APRN Active ROSUVASTATIN CALCIUM 10 MG ORAL TABLET 1 tab po for cholestrol ROSUVASTATIN CALCIUM 93216661676 Active Paris Danielll YARROW GATHERER Active TRAZODONE HCL 100 MG ORAL TABLET 1 po qHS for Insomnia TRAZODONE HCL 33206490262 Active Paris Danielll YARROW GATHERER Active OMEPRAZOLE 20 MG ORAL CAPSULE DELAYED RELEASE 1 cap by mouth daily OMEPRAZOLE 43431424202 Active Paris Arell YARROW GATHERER Active CLOPIDOGREL BISULFATE 75 MG ORAL TABLET 1 tab po daily for hx embolism 12/10 CLOPIDOGREL BISULFATE 03274449291 Active Paris Danielll YARROW GATHERER Active AMLODIPINE BESYLATE 10 MG ORAL TABLET 1 tablet by mouth daily for blood pressure AMLODIPINE BESYLATE 72860607219 Active Paris Arell YARROW GATHERER Active LOSARTAN POTASSIUM 100 MG ORAL TABLET 1 pill by mouth daily, for blood pressure LOSARTAN POTASSIUM 92407520079 Active Paris Danielll YARROW GATHERER Active SPIRONOLACTONE 25 MG ORAL TABLET 1 tablet by mouth daily for blood pressure SPIRONOLACTONE 25 MG ORAL TABLET 262086 SPIRONOLACTONE Inactive AMMONIUM LACTATE 12 % EXTERNAL LOTION use topically as directed for itching/ rash AMMONIUM LACTATE 12 % EXTERNAL LOTION 980611 AMMONIUM LACTATE Inactive OXYBUTYNIN CHLORIDE 5 MG ORAL TABLET 1 tab po daily as needed for urinary symptoms OXYBUTYNIN CHLORIDE 5 MG ORAL TABLET 492034 OXYBUTYNIN CHLORIDE Inactive Vital Signs Date Name Value Unit Range Description blood pressure, diastolic 77 mm[Hg] BP stevens blood pressure, systolic 182 mm[Hg] BP sys pulse rate E&M 66 /min Heart rate temperature E&M 96.1 [degF] Body temperature weight E&M 169 [lb_av] Weight Measured blood pressure, diastolic 46 mm[Hg] BP stevens [...] dipstick 3+ Negative sodium, serum 141 mmol/L 966-667 9873/11/29 carbon dioxide, venous blood 30.5 mmol/L 21.0-32.0 [...] % 11.6-14.8 platelet count 201 10^3/MM^3 10*3/mm3 897-766 3849/11/29 erythrocyte (RBC) count 3.45 10^6/MM^3 10*6/mm3 4.50-6.50 [...] Clean Catch culture status No Office Visit: [place] [employer]--GET EST.-PER [facility]-6-26-17 - Basic LDL target level 100 mg/dL Office Visit: [place] [employer]--GET EST.-PER [id number] - Chemistry HDL cholesterol, serum, target level 40 mg/dL triglyceride, target level 150 mg/dL cholesterol, target level 200 mg/dL Encounters Code Encounter Date Provider Facility CPT-50850 Level 3 Est. Patient 17:28:14 ENTERPRISE SALES PERSON Nata Duran MD [facility] CPT-45531 Level 3 Est. Patient 16:10:21 ENTERPRISE SALES PERSON Nata Duran MD [facility] CPT-45488 Level 4 Est. Patient 16:18:08 ENTERPRISE SALES PERSON Paris Adamson YARROW GATHERER [facility] CPT-05395 Level 4 Est. Patient 08:23:02 CDT David Nolasco MD [facility] CPT-91399 Level 4 Est. Patient 07:23:20 CDT Paris Adamson [facility] CPT-54207 Level 4 New Patient 14:19:32 CDT J Jose Duran MD [facility] Procedures Code Procedure Name Date Entry Date Standard Description CPT-14399 Postop F/U Visit 10:53:13 CDT CPT-99410 Chest 2V Frontal and Lat - XRAY USE ONLY 14:13:50 ENTERPRISE SALES PERSON CPT-24021 Bladder Washing 10:54:10 CDT CPT-48007 Needle Biopsy - Prostate 14:19:32 CDT CPT-54009 Cystoscopy 14:19:32 CDT
--- OUTSIDE RECORDS SUMMARY | 2017-09-04 06:44 | XMS REPORT | Clinical Summary ---
Author Author Admin, SKYLA Organization [facility] Address Unknown Phone Unavailable Allergies, Adverse Reactions, [...] by mouth daily for blood pressure SPIRONOLACTONE 25753004932 No Longer Active Paris Rodriguez APRN Active AMMONIUM LACTATE 12 % EXTERNAL LOTION use topically as directed for itching/ rash AMMONIUM LACTATE 57021431197 Active Paris Rodriguez CONNIE Active OXYBUTYNIN CHLORIDE 5 MG ORAL TABLET 1 tab po daily as needed for urinary symptoms OXYBUTYNIN CHLORIDE 60609369994 Active Paris Rodriguez MORTGAGE MANAGER Active MOMETASONE FUROATE 0.1 % EXTERNAL OINTMENT use as directed MOMETASONE FUROATE 39393556875 Active Paris Michael MORTGAGE MANAGER Active ROSUVASTATIN CALCIUM 10 MG ORAL TABLET 1 tab po for cholestrol ROSUVASTATIN CALCIUM 19371282161 Active Paris Michael CONNIE Active TRAZODONE HCL 100 MG ORAL TABLET 1 po qHS for Insomnia TRAZODONE HCL 64273548007 Active Paris Michael CONNIE Active OMEPRAZOLE 20 MG ORAL CAPSULE DELAYED RELEASE 1 cap by mouth daily OMEPRAZOLE 39080805174 Active Paris Michael MORTGAGE MANAGER Active CLOPIDOGREL BISULFATE 75 MG ORAL TABLET 1 tab po daily for hx embolism 12/10 CLOPIDOGREL BISULFATE 62243190363 Active Paris Rodriguez MORTGAGE MANAGER Active AMLODIPINE BESYLATE 10 MG ORAL TABLET 1 tablet by mouth daily for blood pressure AMLODIPINE BESYLATE 37675368220 Active Paris Michael CONNIE Active LOSARTAN POTASSIUM 100 MG ORAL TABLET 1 pill by mouth daily, for blood pressure LOSARTAN POTASSIUM 96011284630 Active Paris Rodriguez MORTGAGE MANAGER Active SPIRONOLACTONE 25 MG ORAL TABLET 1 tablet by mouth daily for blood pressure SPIRONOLACTONE 25 MG ORAL TABLET 804462 SPIRONOLACTONE Inactive Vital Signs Date Name Value [...] ... - Chemistry sodium, serum 141 mmol/L 218-860 5726/11/29 carbon dioxide, venous blood 30.5 mmol/L 21.0-32.0 [...] Catch culture status No Office Visit: [place] [employer]--GET EST.-PER [facility] [id number] - Basic LDL target level 100 mg/dL Office Visit: [place] [employer]--GET EST.-PER [facility] [id number] - Chemistry HDL cholesterol, serum, target level 40 mg/dL triglyceride, target level 150 mg/dL cholesterol, target level 200 mg/dL Encounters Code Encounter Date Provider Facility CPT-73048 Level 4 Est. 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 Patient 08:23:02 CDT David Nolasco MD [facility] CPT-33421 Level 4 Est. 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
--- OUTSIDE RECORDS SUMMARY | 2017-09-04 06:44 | XMS REPORT | Clinical Summary ---
Author Author Admin, SKYLA Organization [employer] Address Unknown Phone Unavailable Allergies, Adverse Reactions, [...] by mouth daily for blood pressure SPIRONOLACTONE 17893253806 No Longer Active Paris Rodriguez APRN Active AMMONIUM LACTATE 12 % EXTERNAL LOTION use topically as directed for itching/ rash AMMONIUM LACTATE 78992525663 Active Paris Michael SOFTWARE DEVELOPER MID LEVEL Active OXYBUTYNIN CHLORIDE 5 MG ORAL TABLET 1 tab po daily as needed for urinary symptoms OXYBUTYNIN CHLORIDE 23626467782 Active Paris Rodriguez APRN Active MOMETASONE FUROATE 0.1 % EXTERNAL OINTMENT use as directed MOMETASONE FUROATE 41927184964 Active Paris Rodriguez APRN Active ROSUVASTATIN CALCIUM 10 MG ORAL TABLET 1 tab po for cholestrol ROSUVASTATIN CALCIUM 40119175473 Active Paris Rodriguez APRN Active TRAZODONE HCL 100 MG ORAL TABLET 1 po qHS for Insomnia TRAZODONE HCL 78062069688 Active Paris Rodriguez APRN Active OMEPRAZOLE 20 MG ORAL CAPSULE DELAYED RELEASE 1 cap by mouth daily OMEPRAZOLE 41983108232 Active Paris Rodriguez APRN Active CLOPIDOGREL BISULFATE 75 MG ORAL TABLET 1 tab po daily for hx embolism 12/10 CLOPIDOGREL BISULFATE 48985470720 Active Paris Rodriguez APRN Active AMLODIPINE BESYLATE 10 MG ORAL TABLET 1 tablet by mouth daily for blood pressure AMLODIPINE BESYLATE 65804575204 Active Paris Rodriguez APRN Active LOSARTAN POTASSIUM 100 MG ORAL TABLET 1 pill by mouth daily, for blood pressure LOSARTAN POTASSIUM 11761671353 Active Paris Rodriguez APRN Active SPIRONOLACTONE 25 MG ORAL TABLET 1 tablet by mouth daily for blood pressure SPIRONOLACTONE 25 MG ORAL TABLET 805932 SPIRONOLACTONE Inactive Vital Signs Date Name Value [...] ... - Chemistry sodium, serum 141 mmol/L 794-745 8504/11/29 carbon dioxide, venous blood 30.5 mmol/L 21.0-32.0 [...] Catch culture status No Office Visit: [place] [employer]--GET EST.-PER [facility]-6-26-17 - Basic LDL target level 100 mg/dL Office Visit: [place] [employer]--GET EST.-PER [facility]-6-26-17 - Chemistry HDL cholesterol, serum, target level 40 mg/dL triglyceride, target level 150 mg/dL cholesterol, target level 200 mg/dL Encounters Code Encounter Date Provider Facility CPT-76166 Level 4 Est. Patient 08:23:02 CDT David Nolasco MD [facility] CPT-61729 Level 4 Est. 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
--- OUTSIDE RECORDS SUMMARY | 2017-09-04 06:44 | XMS REPORT | Clinical Summary ---
Author Author Admin, SKYLA Organization [employer] Address Unknown Phone Unavailable Allergies, Adverse Reactions, [...] by mouth daily for blood pressure SPIRONOLACTONE 76884676610 No Longer Active Paris Rodriguez APRN Active AMMONIUM LACTATE 12 % EXT LOTN use topically as directed for itching/rash AMMONIUM LACTATE 88139964953 Active Paris Rodriguez APRN Active OXYBUTYNIN CHLORIDE 5 MG TABS 1 tab po daily as needed for urinary symptoms OXYBUTYNIN CHLORIDE 03981325915 Active Paris Rodriguez APRN Active MOMETASONE FUROATE 0.1 % EXT OINT use as directed MOMETASONE FUROATE 69715227188 Active Paris Rodriguez APRN Active ROSUVASTATIN CALCIUM 10 MG ORAL TABS 1 tab po for cholestrol ROSUVASTATIN CALCIUM 16643073058 Active Paris Rodriguez APRN Active TRAZODONE HCL 100 MG TAB 1 po qHS for Insomnia TRAZODONE HCL 17704166522 Active Paris Rodriguez APRN Active OMEPRAZOLE 20 MG CPDR 1 cap by mouth daily OMEPRAZOLE 39131737918 Active Paris Rodriguez APRN Active CLOPIDOGREL BISULFATE 75 MG ORAL TABS 1 tab po daily for hx embolism CLOPIDOGREL BISULFATE 52066030318 Active Paris Rodriguez APRN Active AMLODIPINE BESYLATE 10 MG TABS 1 tablet by mouth daily for blood pressure AMLODIPINE BESYLATE 75810946537 Active Paris Rodriguez APRN Active LOSARTAN POTASSIUM 100 MG TABS 1 pill by mouth daily, for blood pressure 2016 LOSARTAN POTASSIUM 85659484409 Active Paris Rodriguez APRN Active SPIRONOLACTONE 25 MG TAB 1 tablet by mouth daily for blood pressure SPIRONOLACTONE 25 MG TAB 308472 SPIRONOLACTONE Inactive Vital Signs Date Name Value [...] negative Encounters Code Encounter Date Provider Facility CPT-50652 Level 4 Est. Patient 07:23:20 CDT Paris Rodriguez APRN [facility] CPT-36294 Level 4 New Patient 14:19:32 CDT Nata Duran MD [facility] Procedures Code Procedure Name Date Entry Date Standard Description CPT-02218 Bladder Washing 10:54:10 CDT CPT-59212 Needle Biopsy - Prostate 14:19:32 CDT CPT-70533 Cystoscopy 14:19:32 CDT
[2017-09-04 07:00] VITALS: BP 144/60
--- NOTE | 2017-09-04 07:16 | Progress Note-Pre Operative ---
Pre-Operative Progress Note H&P Reviewed The H&P was reviewed, patient examined and no changes noted. Time Seen by Provider: 07:16 Date H&P Reviewed: Sep 04, 2017 Time H&P Reviewed: 07:16 Pre-Operative Diagnosis: MADELINE Marinelli DO Sep 04, 2017 07:16
--- NOTE | 2017-09-04 08:31 | Pulmonary Procedures ---
Pulmonary Procedures Date of Procedure Date of Service: Sep 04, 2017 Bronch Bronchoscopy with BAL, washing and brushing of LLL. EBUS with bx of station 7 lymph nodes Preop DX: mediastinal lymphadenopathy PostOP DX: same, no endobronchial lesions Complications: None Pt was sedated per anesthesia. Bronchoscopy was advanced through the ED tube and an anatomical undertaken down to the segmental bronchi bilaterally. No endobronchial lesions noted. BAL, washing and brushing of LLL. EBUS with bx of station 7 lymph nodes EBUS was then advanced through ET tube and the mediastinum was US. Station 7 lymph nodes were sampled via needle bx under US guidance. Pt tolerated procedure well. No complications noted. MADELINE WONG DO Sep 04, 2017 08:31
--- NOTE | 2017-09-04 08:41 | Anesthesia-General Post-Op ---
General Patient Condition Mental Status/LOC: Same as Preop Cardiovascular: Satisfactory Nausea/Vomiting: Absent Respiratory: Satisfactory Pain: Controlled Complications: Absent Post Op Complications Complications None Follow Up Care/Instructions Patient Instructions None needed. Anesthesia/Patient Condition Patient Condition Patient is doing well, no complaints, stable vital signs, no apparent adverse anesthesia problems. BALA LANG DO Sep 04, 2017 08:40
--- NOTE | 2017-09-04 09:13 | Diagnostic Imaging Report ---
Indication: Post bronchoscopy. Comparison: None. Findings: Portable supine view of the chest is obtained. Heart size is normal. The pulmonary vessels appear unremarkable. There is no pneumothorax or pleural fluid suspected. There is moderate airspace disease in the right lower lobe which may represent atelectasis, infiltrate or pneumonitis. There is patchy atelectasis or infiltrate at the left lung base. Impression: Bilateral basilar opacities more prominent on the right as described. No evidence of pneumothorax or pleural fluid. Dictated by: Dictated on workstation # [id number]
--- NOTE | 2017-09-04 09:14 | Diagnostic Imaging Report ---
INDICATION: Fluoroscopy for bronchoscopy. FINDINGS: Fluoroscopy was provided during bronchoscopy by Dr. Mliler. Total 40 seconds of fluoroscopy was utilized. Multiple images over the right chest were obtained. IMPRESSION: Fluoroscopy during bronchoscopy. Dictated by: Dictated on workstation # [id number]
[2017-09-04 09:35] VITALS: BP 131/71
[2017-09-04 10:05] VITALS: BP 148/69
[2017-09-04 10:15] VITALS: BP 148/69
== END | disposition home or self-care (01) ==
LOC: ENDO 06:29
PROVIDERS: ATTEND Internal Medicine Critical Care Medicine
DX: R91.8 Other nonspecific abnormal finding of lung field (principal); R59.0 Localized enlarged lymph nodes; I10 Essential (primary) hypertension; E78.00 Pure hypercholesterolemia, unspecified; K21.9 Gastro-esophageal reflux disease without esophagitis; N32.9 Bladder disorder, unspecified; F17.210 Nicotine dependence, cigarettes, uncomplicated; Z79.82 Long term (current) use of aspirin; Z79.899 Other long term (current) drug therapy
CPT/HCPCS: 71045; 87070; 87077; 87101; 87116; 87205; 94640

== ENCOUNTER 2017-09-24 14:06 | Outpatient (RCR) | payer OTHER ==
[~2017-09-24 14:06] MED LIST changes: -DEXAMETHASONE 10 MG/ML (DECADRON) 1 ML VIAL ONE; -GLYCOPYRROLATE 0.2 MG/ML (ROBINUL) 2 ML VIAL ONE; -LACTATED RINGERS 1,000 ML IV PRN; -LIDOCAINE 4% INJ (XYLOCAINE) 5ML AMP INJ ONE; -LIDOCAINE PF 2% 5 ML (XYLOCAINE) VIAL ONE; -NEOSTIGMINE 1 MG/ML 5 ML SYRINGE ONE; -ONDANSETRON 4 MG/2 ML (SDV) Z0FRAN IVP PRN; -ONDANSETRON 4 MG/2 ML (SDV) Z0FRAN ONE; -ROCURONIUM 10 MG/ML 5 ML SYRINGE IV ONE; -SEVOFLURANE (ULTANE) 15 ML INHAL SOLN ONE; -fentaNYL INJECTION 100 MCG/2 ML AMP ONE; -proPOfol 200 MG/20 ML (DIPRIVAN) VIAL IV ONE
[2017-09-28] MEDS ORDERED: HYDROcodone/APAP 5 MG/325 MG (LORTAB) TAB ONE (11:04)
[2017-10-01] MEDS ORDERED: ACHD5005 PO (12:57)
== END 2017-11-05 | disposition home or self-care (01) ==
LOC: ONC 14:06
PROVIDERS: ATTEND Internal Medicine Hematology & Oncology
DX: C66.1 Malignant neoplasm of right ureter (principal); C78.7 Secondary malignant neoplasm of liver and intrahepatic bile duct; R91.1 Solitary pulmonary nodule; I10 Essential (primary) hypertension; F17.210 Nicotine dependence, cigarettes, uncomplicated; Z79.82 Long term (current) use of aspirin; Z79.899 Other long term (current) drug therapy
CPT/HCPCS: 99213; 99214

== ENCOUNTER 2017-09-28 07:45 | Outpatient (CLI) | payer MEDICARE, OTHER ==
[~2017-09-28] VITALS: Ht 176.5 cm; Wt 74.8 kg
[2017-09-28] VITALS (14 sets, daily range): BP systolic 128–178; BP diastolic 55–85
--- OUTSIDE RECORDS SUMMARY | 2017-09-28 07:51 | XMS REPORT | Clinical Summary ---
Author Author Admin, SKYLA Organization [employer] Address Unknown Phone Unavailable Allergies, Adverse Reactions, Alerts Allergy Name Reaction Description Start Date Severity Status Provider ALDACTONE Critical Active Eliza Chen WAREHOUSING TECHNICIAN HM LORATADINE Critical Active Nata Duran MD [...] 4 days, then 1mg BID VARENICLINE TARTRATE 47600439592 Active Nata Duran MD Active DAILY MULTIVITAMIN ORAL CAPSULE 1 tablet by mouth MULTIPLE VITAMINS-MINERALS 53979844293 Active Eliza Chen LPN Active [facility] MELATONIN 10 MG ORAL CAPSULE 1 tablet by mouth at bedtime MELATONIN 44308691635 Active Elizaeileen Chen WAREHOUSING TECHNICIAN Active [facility] LUTEIN CAPSULE 1 tablet once daily LUTEIN CAPS 79764100978 Active Eliza Chen WAREHOUSING TECHNICIAN Active GLUCOSAMINE 500 MG ORAL CAPSULE 2 capsules BID GLUCOSAMINE SULFATE 13268807357 Active Eliza Chen LPN Active CARDIOSTEROL 500-32 MG ORAL CAPSULE PHYTOSTEROL ESTERS-FISH OIL 63130114180 Active Eliza Chen WAREHOUSING TECHNICIAN Active ADULT ASPIRIN LOW STRENGTH 81 MG ORAL TABLET DISINTEGRATING 1 tablet once daily ASPIRIN 23792015250 [facility] ACETAMINOPHEN EXTRA STRENGTH 500 MG ORAL CAPSULE as needed ACETAMINOPHEN 33594232675 Active Eliza Chen WAREHOUSING TECHNICIAN Active OXYBUTYNIN CHLORIDE 5 MG ORAL TABLET 1 tab po daily as needed for urinary symptoms OXYBUTYNIN CHLORIDE 82804834639 No Longer Active Eliza Chen LPN Active AMMONIUM LACTATE 12 % EXTERNAL LOTION use topically as directed for itching/ rash AMMONIUM LACTATE 80174906784 No Longer Active Eliza Chen LPN Active SPIRONOLACTONE 25 MG ORAL TABLET 1 tablet by mouth daily for blood pressure SPIRONOLACTONE 23061929773 No Longer Active Paris Adamson BULB GROWER Active MOMETASONE FUROATE 0.1 % EXTERNAL OINTMENT use as directed MOMETASONE FUROATE 21375873521 Active Paris Adamson APRN Active ROSUVASTATIN CALCIUM 10 MG ORAL TABLET 1 tab po for cholestrol ROSUVASTATIN CALCIUM 46975423346 Active Paris Danielll BULB GROWER Active TRAZODONE HCL 100 MG ORAL TABLET 1 po qHS for Insomnia TRAZODONE HCL 42335256034 Active Paris Danielll BULB GROWER Active OMEPRAZOLE 20 MG ORAL CAPSULE DELAYED RELEASE 1 cap by mouth daily OMEPRAZOLE 65604244601 Active Paris Arell BULB GROWER Active CLOPIDOGREL BISULFATE 75 MG ORAL TABLET 1 tab po daily for hx embolism 12/10 CLOPIDOGREL BISULFATE 75807451288 Active Paris Danielll BULB GROWER Active AMLODIPINE BESYLATE 10 MG ORAL TABLET 1 tablet by mouth daily for blood pressure AMLODIPINE BESYLATE 79803452487 Active Paris Arell BULB GROWER Active LOSARTAN POTASSIUM 100 MG ORAL TABLET 1 pill by mouth daily, for blood pressure LOSARTAN POTASSIUM 97453283847 Active Paris Danielll BULB GROWER Active SPIRONOLACTONE 25 MG ORAL TABLET 1 tablet by mouth daily for blood pressure SPIRONOLACTONE 25 MG ORAL TABLET 795148 SPIRONOLACTONE Inactive AMMONIUM LACTATE 12 % EXTERNAL LOTION use topically as directed for itching/ rash AMMONIUM LACTATE 12 % EXTERNAL LOTION 523713 AMMONIUM LACTATE Inactive OXYBUTYNIN CHLORIDE 5 MG ORAL TABLET 1 tab po daily as needed for urinary symptoms OXYBUTYNIN CHLORIDE 5 MG ORAL TABLET 430481 OXYBUTYNIN CHLORIDE Inactive Vital Signs Date Name [...] dipstick 3+ Negative sodium, serum 141 mmol/L 879-127 5235/11/29 carbon dioxide, venous blood 30.5 mmol/L 21.0-32.0 [...] Catch culture status No Office Visit: [place] [employer]--GET EST.-PER [facility]-6-26-17 - Basic LDL target level 100 mg/dL Office Visit: [place] [employer]--GET EST.-PER [facility] [id number] - Chemistry HDL cholesterol, serum, target level 40 mg/dL triglyceride, target level 150 mg/dL cholesterol, target level 200 mg/dL Encounters Code Encounter Date Provider Facility CPT-05135 Level 3 Est. Patient 17:28:14 STUDENT SERVICES DEAN Nata Duran MD [facility] CPT-37236 Level 3 Est. Patient 16:10:21 STUDENT SERVICES DEAN Nata Duran MD [facility] CPT-12033 Level 4 Est. Patient 16:18:08 [employer] Paris Adamson BULB GROWER [facility] CPT-78218 Level 4 Est. Patient 08:23:02 CDT David Nolasco MD [facility] CPT-02324 Level 4 Est. Patient 07:23:20 CDT Paris Adamson [facility] CPT-18119 Level 4 New Patient 14:19:32 CDT J Jose Duran MD [facility] Procedures Code Procedure Name Date Entry Date Standard Description CPT-10923 Postop F/U Visit 10:53:13 CDT CPT-35386 Chest 2V Frontal and Lat - XRAY USE ONLY 14:13:50 STUDENT SERVICES DEAN CPT-12742 Bladder Washing 10:54:10 CDT CPT-65313 Needle Biopsy - Prostate 14:19:32 CDT CPT-74735 Cystoscopy 14:19:32 CDT
--- OUTSIDE RECORDS SUMMARY | 2017-09-28 07:59 | XMS REPORT | Continuity of Care Document ---
Demographics x Preferred Language Unknown Marital Status Unknown Latter Day Affiliation Unknown Race Unknown Ethnic Group Unknown Author Author [facility] Organization [facility] Address Unknown Phone Unavailable Allergies Active Description Code Type Severity Reaction Onset Reported/Identified Relationship to Patient Clinical Status Yes No known drug allergies 43671047 Drug Allergy N/A N/A Confirmed but inactive Yes Penicillins 476 Drug Allergy N/ A N/A Confirmed or Verified Yes BP medication Drug Moderate rash Yes hydroCHLOROthiazide Drug Moderate [id number] Yes hydrochlorothiazide [id number] Drug Allergy Severe SEVERE ITCHING Yes loratadine [id number] Drug Allergy Severe ITCHING 09/04/2017 Yes spironolactone [id number] Drug Allergy Severe ITCHING 09/04/2017 Medications There is no data. 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 08/05/2017 MADELINE WONG DO Ot F17.200 NICOTINE DEPENDENCE, UNSPECIFIED, UNCOMP 08/05/2017 MADELINE WONG DO Ot R93.2 ABNORMAL FINDINGS ON DX IMAGING OF LIVER 2017 NANCY MARTIN APRN Ot 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 2017 NANCY MARTIN APRN Ot R53.83 OTHER FATIGUE 2017 NANCY MARTIN APRN Ot Z72.0 TOBACCO USE 2017 MADELINE WONG DO Ot C67.9 MALIGNANT NEOPLASM OF BLADDER, UNSPECIFI 2017 MADELINE WONG DO Ot 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 2017 MADELINE WONG DO Ot F17.200 NICOTINE DEPENDENCE, UNSPECIFIED, UNCOMP 2017 MADELINE WONG DO Ot R93.2 ABNORMAL FINDINGS ON DX IMAGING OF LIVER 08/20/2017 Nata Shepherd MD 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, renal pelvis 08/31/2017 MADELINE WONG DO, Ot C34.90 MALIGNANT NEOPLASM OF UNSP PART OF UNSP 08/31/2017 MADELINE WONG DO Ot R59.0 LOCALIZED ENLARGED LYMPH NODES 08/31/2017 MADELINE WONG DO Ot R63.0 ANOREXIA 08/31/2017 MADELINE WONG DO Ot R91.8 OTHER NONSPECIFIC ABNORMAL FINDING OF CHIDI 08/31/2017 MADELINE WONG DO Ot Z01.818 ENCOUNTER FOR OTHER PREPROCEDURAL EXAMIN 09/01/2017 MADELINE WONG DO, Ot C34.90 MALIGNANT NEOPLASM OF UNSP PART OF UNSP 09/01/2017 MADELINE WONG DO Ot R59.0 LOCALIZED ENLARGED LYMPH NODES 09/01/2017 MADELINE WONG DO Ot R63.0 ANOREXIA 09/01/2017 MADELINE WONG DO Ot R91.8 OTHER NONSPECIFIC ABNORMAL FINDING OF CHIDI 09/01/2017 MADELINE WONG DO Ot Z01.818 ENCOUNTER FOR OTHER PREPROCEDURAL EXAMIN 09/03/2017 NANCY MARTIN APRN Ot 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 09/03/2017 NANCY MARTIN APRN Ot R53.83 OTHER FATIGUE 09/03/2017 NANCY MARTIN APRN Ot Z72.0 TOBACCO USE 09/04/2017 NANCY MARTIN APRN Ot 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 09/04/2017 NANCY MARTIN ADVERTISING REP Ot R53.83 OTHER FATIGUE 09/04/2017 NANCY MARTIN ADVERTISING REP Ot Z72.0 TOBACCO USE 09/08/2017 MADELINE WONG DO Ot E78.00 PURE HYPERCHOLESTEROLEMIA, UNSPECIFIED 09/08/2017 MADLEINE WONG DO Ot F17.210 NICOTINE DEPENDENCE, CIGARETTES, UNCOMPL 09/08/2017 MADELINE WONG DO Ot I10 ESSENTIAL (PRIMARY) HYPERTENSION 09/08/2017 MADELINE WONG DO Ot K21.9 GASTRO-ESOPHAGEAL REFLUX DISEASE WITHOUT 09/08/2017 MADELINE WONG DO Ot N32.9 BLADDER DISORDER, UNSPECIFIED 09/08/2017 MADELINE WONG DO Ot R59.0 LOCALIZED ENLARGED LYMPH NODES 09/08/2017 MADELINE WONG DO Ot R91.8 OTHER NONSPECIFIC ABNORMAL FINDING OF CHIDI 09/08/2017 MADELINE WONG DO Ot Z79.82 SNF (CURRENT) USE OF ASPIRIN 09/08/2017 MADELINE WONG DO Ot Z79.899 OTHER COMPUTER SUPPORT SPECIALIST INSTRUCTOR (CURRENT) DRUG THERAPY 09/08/2017 MADELINE WONG DO Ot E78.00 PURE HYPERCHOLESTEROLEMIA, UNSPECIFIED 09/08/2017 MADELINE WONG DO Ot F17.210 NICOTINE DEPENDENCE, CIGARETTES, UNCOMPL 09/08/2017 MADELINE WONG DO Ot I10 ESSENTIAL (PRIMARY) HYPERTENSION 09/08/2017 MADELINE WONG DO Ot K21.9 GASTRO-ESOPHAGEAL REFLUX DISEASE WITHOUT 09/08/2017 MADELINE WONG DO Ot N32.9 BLADDER DISORDER, UNSPECIFIED 09/08/2017 MADELINE WONG DO Ot R59.0 LOCALIZED ENLARGED LYMPH NODES 09/08/2017 MADELINE WONG DO Ot R91.8 OTHER NONSPECIFIC ABNORMAL FINDING OF CHIDI 09/08/2017 MADELINE WONG DO Ot Z79.82 COMPUTER SUPPORT SPECIALIST INSTRUCTOR (CURRENT) USE OF ASPIRIN 09/08/2017 MADELINE WONG DO M Ot Z79.899 OTHER COMPUTER SUPPORT SPECIALIST INSTRUCTOR (CURRENT) DRUG THERAPY 09/10/2017 MADELINE WONG DO M Ot E78.00 PURE HYPERCHOLESTEROLEMIA, UNSPECIFIED 09/10/2017 MADELINE WONG DO M Ot F17.210 NICOTINE DEPENDENCE, CIGARETTES, UNCOMPL 09/10/2017 MARVIN DOMADELINE M Ot I10 ESSENTIAL (PRIMARY) HYPERTENSION 09/10/2017 MADELINE WONG DO M Ot K21.9 GASTRO-ESOPHAGEAL REFLUX DISEASE WITHOUT 09/10/2017 MARVIN DOMADELINE M Ot N32.9 BLADDER DISORDER, UNSPECIFIED 09/10/2017 MADELINE WONG DO Ot R59.0 LOCALIZED ENLARGED LYMPH NODES 09/10/2017 MADELINE WONG DO Ot R91.8 OTHER NONSPECIFIC ABNORMAL FINDING OF CHIDI 09/10/2017 MADELINE WONG DO Ot Z79.82 COMPUTER SUPPORT SPECIALIST INSTRUCTOR (CURRENT) USE OF ASPIRIN 09/10/2017 MADELINE WONG DO Ot Z79.899 OTHER SNF (CURRENT) DRUG THERAPY 09/15/2017 NANCY MARTIN APRN Ot 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 09/15/2017 NANCY MARTIN APRN Ot R53.83 OTHER FATIGUE 09/15/2017 NANCY MARTIN APRN Ot Z72.0 TOBACCO USE 09/15/2017 MADELINE WONG DO Ot C67.9 MALIGNANT NEOPLASM OF BLADDER, UNSPECIFI 09/15/2017 MADELINE WONG DO Ot 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 09/15/2017 MADELINE WONG DO Ot F17.200 NICOTINE DEPENDENCE, UNSPECIFIED, UNCOMP 09/15/2017 MADELINE WONG DO Ot R93.2 ABNORMAL FINDINGS ON DX IMAGING OF LIVER 09/15/2017 ALEKS NIÑO MD Ot 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 09/15/2017 ALEKS NIÑO MD Ot C78.7 SECONDARY MALIG NEOPLASM OF LIVER AND IN 09/15/2017 ALEKS NIÑO MD Ot F17.210 NICOTINE DEPENDENCE, CIGARETTES, UNCOMPL 09/15/2017 ALEKS NIÑO MD Ot I10 ESSENTIAL (PRIMARY) HYPERTENSION 09/15/2017 ALEKS NIÑO MD Ot R91.1 SOLITARY PULMONARY NODULE 09/15/2017 ALEKS NIÑO MD Ot Z79.82 SNF (CURRENT) USE OF ASPIRIN 09/15/2017 ALEKS NIÑO MD Ot Z79.899 OTHER SNF (CURRENT) DRUG THERAPY 09/15/2017 MADELINE WONG DO Ot E78.00 PURE HYPERCHOLESTEROLEMIA, UNSPECIFIED 09/15/2017 MADELINE WONG DO Ot F17.210 NICOTINE DEPENDENCE, CIGARETTES, UNCOMPL 09/15/2017 MADELINE WONG DO Ot I10 ESSENTIAL (PRIMARY) HYPERTENSION 09/15/2017 MADELINE WONG DO Ot K21.9 GASTRO-ESOPHAGEAL REFLUX DISEASE WITHOUT 09/15/2017 MADELINE WONG DO Ot N32.9 BLADDER DISORDER, UNSPECIFIED 09/15/2017 MADELINE WONG DO Ot R59.0 LOCALIZED ENLARGED LYMPH NODES 09/15/2017 MADELINE WONG DO Ot R91.8 OTHER NONSPECIFIC ABNORMAL FINDING OF CHIDI 09/15/2017 MADELINE WONG DO Ot Z79.82 COMPUTER SUPPORT SPECIALIST INSTRUCTOR (CURRENT) USE OF ASPIRIN 09/15/2017 MADELINE WONG DO Ot Z79.899 OTHER COMPUTER SUPPORT SPECIALIST INSTRUCTOR (CURRENT) DRUG THERAPY 09/25/2017 MADELINE WONG DO Ot E78.00 PURE HYPERCHOLESTEROLEMIA, UNSPECIFIED 09/25/2017 MADELINE WONG DO Ot F17.210 NICOTINE DEPENDENCE, CIGARETTES, UNCOMPL 09/25/2017 MADELINE WONG DO Ot I10 ESSENTIAL (PRIMARY) HYPERTENSION 09/25/2017 MADELINE WONG DO Ot K21.9 GASTRO-ESOPHAGEAL REFLUX DISEASE WITHOUT 09/25/2017 MADELINE WONG DO Ot N32.9 BLADDER DISORDER, UNSPECIFIED 09/25/2017 MADELINE WONG DO Ot R59.0 LOCALIZED ENLARGED LYMPH NODES 09/25/2017 MADELINE WONG DO Ot R91.8 OTHER NONSPECIFIC ABNORMAL FINDING OF CHIDI 09/25/2017 MADELINE WONG DO, Ot Z79.82 SNF (CURRENT) USE OF ASPIRIN 09/25/2017 MADELINE WONG DO, Ot Z79.899 OTHER COMPUTER SUPPORT SPECIALIST INSTRUCTOR (CURRENT) DRUG THERAPY Procedures Code Description [place] [address] ROUTINE VENIPUNCTURE 01/05/2016 77167 CHEST X-RAY 01/05/2016 98547 COMPREHEN METABOLIC PANEL 01/05/2016 59925 URINALYSIS, AUTO W/SCOPE 01/05/2016 21175 ASSAY OF MAGNESIUM 01/05/2016 06864 ASSAY OF TROPONIN, QUANT 01/05/2016 26818 COMPLETE CBC W/AUTO DIFF WBC 01/05/2016 88441 ELECTROCARDIOGRAM, TRACING 01/05/2016 97199 EMERGENCY DEPT VISIT 01/05/2016 50064 EMERGENCY DEPT VISIT 01/05/2016 Results Test Result Range CBC WITH DIFF - 02/04/14 00:00 BASO% 0.4 % 0-2 EOS% 1.7 % 0-7.0 HCT 37.6 % 41.9-52.0 HGB 13.1 G/DL 13.0-18.0 LYMPH% 23.9 % 20-40 MCH 33.7 PG 27-31 MCHC 34.8 G/DL 33-37 MCV 96.7 FL 80-94 MONO% 8.3 % 0-10.0 MPV 9.7 FL 7.3-10.4 NEUTRO% 65.7 % 40-70 PLT 154 10^3u 130-400 RBC 3.9 10^6u 4.7-6.1 RDW 12.3 % 11.5-15.5 WBC 4.8 10^3u 4.8-10.8 NEUTRO# 3.2 10^3u 1.5-7.5 LYMPH# 1.2 10^3u 0.9-4.0 MONO# 0.4 10^3u 0-0.8 EOS# 0.1 10^3u 0-0.6 BASO# 0.0 10^3u 0-0.1 CMP - 02/04/14 00:00 ALB 3.4 G/DL 3.5-5 ALP 35 IU/L 50-136 ALT 22 IU/L 12-65 AST 14 IU/L 10-42 BCR 14.4 10-20 BUN 17 MG/DL 7-18 CA 8.7 MG/DL 8.4-10.2 CL 103 MEQ/L 98-107 CO2 29.1 MEQ/L 22-28 CREA 1.18 MG/DL 0.6-1.3 EGFR 60 eGFR >=60 GLU 128 MG/DL 70-105 K 3.8 MEQ/L 3.5-5.1 NA 138 MEQ/L 134-145 OSMSC 278.9 MOSML 280-300 TBIL 0.3 MG/DL 0.1-1.0 TP 6.3 G/DL 6.0-8.3 Albumin/Globulin Ratio 1.2 0-8 Anion Gap 5.9 8-16 TROP - 02/04/14 00:00 TROP < 0.04 NG/ML 0.0-0.4 CBC WITH DIFF - 01/05/16 00:00 BASO% 0.6 % 0-2 EOS% 2.5 % 0-7.0 HCT 33.7 % 41.9-52.0 HGB 11.9 G/DL 13.0-18.0 LYMPH% 23.5 % 20-40 MCH 34.6 PG 27-31 MCHC 35.3 G/DL 33-37 MCV 98.0 FL 80-94 MONO% 7.6 % 0-10.0 MPV 10.0 FL 7.3-10.4 NEUTRO% 65.4 % 40-70 PLT 159 10^3u 130-400 RBC 3.4 10^6u 4.7-6.1 RDW 12.1 % 11.5-15.5 WBC 5.1 10^3u 4.8-10.8 NEUTRO# 3.3 10^3u 1.5-7.5 LYMPH# 1.2 10^3u 0.9-4.0 MONO# 0.4 10^3u 0-0.8 EOS# 0.1 10^3u 0-0.6 BASO# 0.0 10^3u 0-0.1 IMM GRANULOCYTE % 0.4 % IMM GRANULOCYTE # 0.0 10^3u 0-5 CMP - 01/05/16 00:00 ALB 3.4 G/DL 3.5-5 ALP 28 IU/L 39-107 ALT 20 IU/L 12-65 AST 9 IU/L 10-42 BCR 14.5 10-20 BUN 18 MG/DL 7-18 CA 8.5 MG/DL 8.4-10.2 CL 104 MEQ/L 98-107 CO2 26.2 MEQ/L 22-28 CREA 1.24 MG/DL 0.6-1.3 EGFR 57 eGFR >=60 GLU 127 MG/DL 70-105 K 4.2 MEQ/L 3.5-5.1 NA 138 MEQ/L 134-145 OSMSC 279.2 MOSML 280-300 TBIL 0.3 MG/DL 0.1-1.0 TP 6.5 G/DL 6.0-8.3 Albumin/Globulin Ratio 1.1 0-8 Anion Gap 7.8 8-16 TROP - 01/05/16 00:00 TROP < 0.02 NG/ML 0.0-0.4 MG - 01/05/16 00:00 MG 1.0 MG/DL 1.7-2.8 UA - 01/05/16 00:00 PH 6.0 4.5-8.0 SG 1.004 UABILI NEGATIVE UABLD TRACE UACOLOR YEL UAGLU NEGATIVE UAKET NEGATIVE UALEUK NEGATIVE UANIT NEGATIVE UAURO 0.2 0-0.2 UCX NO CLARITY CL PROTEIN NEGATIVE UA WBC R05 UA RBC R05 SQUAMOUS EPITHELIAL CELLS NOSQUAM Sputum Gram stain - 09/04/17 07:53 Sputum Gram stain Few gram negative coccobacilli NRG Bacteria identification in bronchial specimen by aerobe culture - 09/04/17 07: 53 QUANTITY OF GROWTH Moderate Growth NRG Bacteria identification in bronchial specimen by aerobe culture [id number] NRG FTX;REPORTABLE BETA LACTAMASE POSITIVE NRG Sputum Gram stain - 09/04/17 07:53 GRAM STAIN SPUTUM NO WBC'S OR BACTERIA NRG Bacteria identification in bronchial specimen by aerobe culture - 09/04/17 07: 53 Bacteria identification in bronchial specimen by aerobe culture NG NRG Mycobacterium species detection by organism specific culture - 09/04/17 07:53 Mycobacterium species detection by organism specific culture 4 weeks required for a preliminary negative culture report. NRG Fungus culture - 09/04/17 07:53 Fungus culture NG NRG Fungus culture - 09/04/17 07:53 Fungus culture NG NRG Encounters ACCT No. Visit Date/Time Discharge Status Pt. Type Provider Facility Loc./Unit Complaint [id number] 01/05/2016 11:20:00 01/05/2016 13:38:00 DIS Emergency TESHA HERNANDEZ [facility] EMR [id number] 02/04/2014 10:11:00 02/04/2014 12:48:00 DIS Emergency HEAVENLY HAMPTON [facility] EMR [id number] 09/15/2013 05:50:00 09/15/2013 08:30:00 DIS Inpatient MARCY HEREDIA [facility] OPS [id number] 08/18/2013 06:00:00 08/18/2013 08:15:00 DIS Inpatient MARCY HEREDIA [facility] OPS [id number] 05/07/2015 00:00:00 Document Registration [id number] 05/07/2013 00:00:00 Document Registration [id number] 09/24/2017 14:06:00 09/24/2017 23:59:59 CLS Outpatient ALEKS NIÑO MD [facility] [id number] 09/18/2017 08:15:00 09/18/2017 23:59:59 CLS Preadmit MADELINE WONG DO [facility] RAD LIVER MASS,LUNG MASS [id number] 09/04/2017 06:29:00 09/04/2017 23:59:59 CLS Outpatient MADELINE WONG DO [facility] ENDO LUNG CANCER/LUNG MASS/ MEDIASTINAL LYMPHADENOPATHY, [id number] 08/31/2017 06:18:00 08/31/2017 15:54:00 DIS Outpatient MADELINE WONG DO [facility] PREOP BRONCHOSCOPY [id number] 08/04/2017 08:08:00 08/04/2017 23:59:59 CLS Outpatient MADELINE WONG DO [facility] RAD C67.9 BLADDER CANCER [id number] 07/22/2017 08:38:00 07/22/2017 23:59:59 CLS Outpatient NANCY MARTIN APRN [facility] RT FATIGUE [id number] 07/22/2017 10:09:00 Document Registration [id number] 08/27/2017 17:45:00 ACT Unknown Nata Shepherd MD [id number] 09/14/2017 21:04:33 09/14/2017 23:59:59 DIS Outpatient CJ BAINS [facility] [id number] 09/14/2017 16:39:00 09/14/2017 23:59:59 CLS Emergency [facility] ED ed visit [id number] 07/31/2017 14:16:57 07/31/2017 23:59:59 CLS Preadmit MADELINE SHEPHERD [facility] Surgery OPS [id number] 07/14/2017 16:14:21 07/14/2017 23:59:59 CLS Preadmit MADELINE SHEPHERD [facility] Surgery Ureteroscopy w/ bx [id number] 06/28/2017 13:44:00 06/28/2017 23:59:59 CLS Emergency [facility] ED ed visit [id number] 12/22/2016 07:36:14 12/22/2016 23:59:59 DIS Outpatient MADELINE SHEPHERD [facility] RAD bladder ca, hematuria [id number] 10/17/2016 09:02:40 10/17/2016 23:59:59 CLS Preadmit Lucia Alvarez [facility] RAD intermittent claudication bilateral [id number] 06/11/2016 13:33:32 06/11/2016 23:59:59 CLS Preadmit SVETLANA MORGAN [facility] RAD ARANDA [id number] 09/22/2017 17:16:00 ACT V TESHA HERNANDEZ [facility] OBS ED VISIT [id number] 09/14/2017 20:37:11 PEN Inpatient TESHA HERNANDEZ [facility] MS Sepsis hypomagnesemia ileus alterted mental status
[2017-09-28 08:12] LABS: HEMOGLOBIN 9.1 G/DL (13.3-17.7); MEAN PLATELET VOLUME 10.1 FL (7.4-10.4); RED BLOOD COUNT 3.01 10^6/uL (4.35-5.85); RED CELL DISTRIBUTION WIDTH 14.2 % (10.0-14.5); WHITE BLOOD COUNT 10.9 10^3/uL (4.3-11.0)
[2017-09-28 08:25] LABS: INR 1.3 (0.8-1.4); PROTHROMBIN TIME PATIENT 16.6 SEC (12.2-14.7)
[2017-09-28] MEDS ORDERED: NS IV 1000 ML 1,000 ML IV STA (08:25)
[2017-09-28] MEDS ORDERED: fentaNYL INJECTION 100 MCG/2 ML AMP IVP PRN (08:30)
[2017-09-28] MEDS ORDERED: LIDOCAINE 1% INJ 50 ML (XYLOCAINE) VIAL IJ ONE (08:30)
[2017-09-28] MEDS ORDERED: MIDAZOLAM 2 MG/2 ML (VERSED) VIAL IVP PRN (08:30)
[2017-09-28] MEDS ORDERED: HYDROcodone/APAP 5 MG/325 MG (LORTAB) TAB PO PRN (09:30)
--- NOTE | 2017-09-28 11:47 | Pre-Procedure Progress Note ---
Pre-Procedure Progress Note H&P Reviewed The H&P was reviewed, patient examined and no changes noted. Date H&P Reviewed: Sep 28, 2017 Time H&P Reviewed: 08:00 Pre-Procedure Diagnosis: Liver mass ANDERSON SMITH MD Sep 28, 2017 11:47
--- NOTE | 2017-09-28 12:48 | Diagnostic Imaging Report ---
INDICATION: Liver masses. Patient presents for CT-guided biopsy. COMPARISON: Correlation is made with CT study from 07/22/2017 and a PET/CT from 08/04/2017. FINDINGS: After informed consent was obtained from the patient, patient was brought to the CT suite and placed on table in the supine position. Axial imaging through the abdomen was performed to evaluate appropriate entry site. Skin of the right abdomen was prepped and draped in usual sterile fashion. A small amount of 1% lidocaine was utilized for local anesthesia. An 18-gauge coaxial needle was advanced and placed with its tip adjacent to the low-density lesion just posterior to the gallbladder in the medial right lobe corresponding to the lesion that was hypermetabolic on recent PET scan. Total of three core biopsies were obtained. Images demonstrated appearance of significant enlargement of numerous low-density masses throughout the liver when compared with prior imaging from July. There has also been development of small amount of fluid along the liver. IMPRESSION: CT-guided core biopsy of right lobe liver mass. There has been increased in size and likely number of low-density masses throughout the liver since prior imaging in July consistent with worsening hepatic metastatic disease. Dictated by: Dictated on workstation # [id number]
== END 2017-09-28 13:28 | disposition home or self-care (01) ==
LOC: RAD 07:45
PROVIDERS: ATTEND Internal Medicine Critical Care Medicine
DX: C78.7 Secondary malignant neoplasm of liver and intrahepatic bile duct (principal); R91.8 Other nonspecific abnormal finding of lung field; R59.0 Localized enlarged lymph nodes; R63.0 Anorexia
CPT/HCPCS: 36415; 77012; 85027; 85610; 85730; 88307; 88341; 88342; 88344

== ENCOUNTER 2017-10-01 09:33 | Day surgery (SDC) | payer MEDICARE, OTHER ==
[~2017-10-01] VITALS: Ht 176.5 cm; Wt 74.8 kg
[2017-10-01] MEDS ORDERED: ceFAZolin 2 GM IV Premixed 50 ML IV ONE (09:45)
--- OUTSIDE RECORDS SUMMARY | 2017-10-01 09:46 | XMS REPORT | Continuity of Care Document ---
Demographics x Preferred Language Unknown Marital Status Unknown Sabianist Affiliation Unknown Race Unknown Ethnic Group Unknown Author Author [facility] Organization [facility] Address Unknown Phone Unavailable Allergies Active Description Code Type Severity Reaction Onset Reported/Identified Relationship to Patient Clinical Status Yes No known drug allergies 41480670 Drug Allergy N/A N/A Confirmed but inactive Yes Penicillins 476 Drug Allergy N/ A N/A Confirmed or Verified Yes BP medication Drug Moderate rash Yes hydroCHLOROthiazide Drug Moderate [id number] Yes hydrochlorothiazide [id number] Drug Allergy Severe SEVERE ITCHING Yes loratadine [id number] Drug Allergy Severe ITCHING 09/30/2017 Yes spironolactone [id number] Drug Allergy Severe ITCHING 09/30/2017 Medications There is no data. 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 09/08/2017 MADELINE WONG DO [...] CHIDI 09/08/2017 MADELINE WONG DO Ot 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 09/08/2017 MADELINE WONG DO M Ot 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 09/10/2017 MADELINE WONG DO [...] CHIDI 09/10/2017 MADELINE WONG DO Ot 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 09/10/2017 MADELINE WONG DO Ot Z79.899 OTHER [facility] (CURRENT) DRUG THERAPY 09/15/2017 NANCY MARTIN APRN [...] NODULE 09/15/2017 ALEKS NIÑO MD Ot Z79.82 [facility] (CURRENT) USE OF ASPIRIN 09/15/2017 ALEKS NIÑO MD Ot Z79.899 OTHER [facility] (CURRENT) DRUG THERAPY 09/15/2017 MADELINE WONG DO Ot E78.00 PURE HYPERCHOLESTEROLEMIA, UNSPECIFIED 09/15/2017 MADELINE WONG DO Ot F17.210 NICOTINE DEPENDENCE, CIGARETTES, UNCOMPL 09/15/2017 MADELINE WONG DO Ot I10 ESSENTIAL (PRIMARY) HYPERTENSION 09/15/2017 MADELINE WONG DO Ot K21.9 GASTRO-ESOPHAGEAL REFLUX DISEASE WITHOUT 09/15/2017 MICKI WONG DOSON M Ot N32.9 BLADDER DISORDER, UNSPECIFIED 09/15/2017 MARVIN DOMADELINE M Ot R59.0 LOCALIZED ENLARGED LYMPH NODES 09/15/2017 MADELINE WONG DO M Ot R91.8 OTHER NONSPECIFIC ABNORMAL FINDING OF CHIDI 09/15/2017 MADELINE WONG DO M Ot 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 09/15/2017 MADELINE WONG DO Ot 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 09/25/2017 MARVIN DOMADELINE M Ot E78.00 PURE HYPERCHOLESTEROLEMIA, UNSPECIFIED 09/25/2017 MARVIN DOMADELINE M Ot F17.210 NICOTINE DEPENDENCE, CIGARETTES, UNCOMPL 09/25/2017 MADELINE WONG DO M Ot I10 ESSENTIAL (PRIMARY) HYPERTENSION 09/25/2017 MADELINE WONG DO M Ot K21.9 GASTRO-ESOPHAGEAL REFLUX DISEASE WITHOUT 09/25/2017 MARVIN DOMADELINE M Ot N32.9 BLADDER DISORDER, UNSPECIFIED 09/25/2017 MADELINE WONG DO M Ot R59.0 LOCALIZED ENLARGED LYMPH NODES 09/25/2017 MADELINE WONG DO M Ot R91.8 OTHER NONSPECIFIC ABNORMAL FINDING OF CHIDI 09/25/2017 MADELINE WONG DO M Ot Z79.82 [facility] (CURRENT) USE OF ASPIRIN 09/25/2017 MADELINE WONG DO M Ot 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 09/29/2017 MADELINE WONG DO M Ot E78.00 PURE HYPERCHOLESTEROLEMIA, UNSPECIFIED 09/29/2017 MADELINE WONG DO M Ot F17.210 NICOTINE DEPENDENCE, CIGARETTES, UNCOMPL 09/29/2017 MARVIN DOMICKIMADELINE M Ot I10 ESSENTIAL (PRIMARY) HYPERTENSION 09/29/2017 MARVIN DOMICKIMADELINE M Ot K21.9 GASTRO-ESOPHAGEAL REFLUX DISEASE WITHOUT 09/29/2017 MARVIN DOMADELINE M Ot N32.9 BLADDER DISORDER, UNSPECIFIED 09/29/2017 MARVIN DOMICKIMADELINE M Ot R59.0 LOCALIZED ENLARGED LYMPH NODES 09/29/2017 MARVIN DOMICKIMADELINE M Ot R91.8 OTHER NONSPECIFIC ABNORMAL FINDING OF CHIDI 09/29/2017 MADELINE WONG DO M Ot Z79.82 [facility] (CURRENT) USE OF ASPIRIN 09/29/2017 MARVIN MADELINE GURROLA David Ot 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 09/29/2017 ALEKS NIÑO MD, Ot 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 09/29/2017 ALEKS NIÑO MD, Ot C78.7 SECONDARY MALIG NEOPLASM OF LIVER AND IN 09/29/2017 ALEKS NIÑO MD, Ot F17.210 NICOTINE DEPENDENCE, CIGARETTES, UNCOMPL 09/29/2017 ALEKS NIÑO MD, Ot I10 ESSENTIAL (PRIMARY) HYPERTENSION 09/29/2017 ALEKS NIÑO MD, Ot R91.1 SOLITARY PULMONARY NODULE 09/29/2017 ALEKS NIÑO MD, Ot Z79.82 [facility] (CURRENT) USE OF ASPIRIN 09/29/2017 ALEKS NIÑO MD, Ot Z79.899 OTHER [facility] (CURRENT) DRUG THERAPY Procedures Code Description [place] [address] ROUTINE VENIPUNCTURE 01/05/2016 56196 CHEST X-RAY 01/05/2016 03834 COMPREHEN METABOLIC PANEL 01/05/2016 87012 URINALYSIS, AUTO W/SCOPE 01/05/2016 90771 ASSAY OF MAGNESIUM 01/05/2016 00395 ASSAY OF TROPONIN, QUANT 01/05/2016 14434 COMPLETE CBC W/AUTO DIFF WBC 01/05/2016 26223 ELECTROCARDIOGRAM, TRACING 01/05/2016 83030 EMERGENCY DEPT VISIT 01/05/2016 59497 EMERGENCY DEPT VISIT 01/05/2016 Results Test Result [...] identification in bronchial specimen by aerobe culture [id number] NRG FTX;REPORTABLE BETA LACTAMASE POSITIVE NRG Sputum Gram stain - 09/04/17 07:53 GRAM STAIN SPUTUM NO WBC'S OR BACTERIA NRG Bacteria identification in bronchial specimen by aerobe culture - 09/04/17 07: 53 Bacteria identification in bronchial specimen by aerobe culture [facility] Mycobacterium species detection by organism specific culture - 09/04/17 07:53 Mycobacterium species detection by organism specific culture 4 weeks required for a preliminary negative culture report. NRG Fungus culture - 09/04/17 07:53 Fungus culture NG NRG Fungus culture - 09/04/17 07:53 Fungus culture NG NR Automated blood complete blood count (hemogram) panel - 09/28/17 08:05 Blood leukocytes automated count (number/volume) 10.9 10*3/uL 4.3-11.0 Blood erythrocytes automated count (number/volume) 3.01 10*6/uL 4.35-5.85 Venous blood hemoglobin measurement (mass/volume) 9.1 g/dL 13.3-17.7 Blood hematocrit (volume fraction) 28 % 40-54 Automated erythrocyte mean corpuscular volume 91 [foz_us] 80-99 Automated erythrocyte mean corpuscular hemoglobin (mass per erythrocyte) 30 pg 25-34 Automated erythrocyte mean corpuscular hemoglobin concentration measurement ( mass/volume) 33 g/dL 32-36 Automated erythrocyte distribution width ratio 14.2 % 10.0-14.5 Automated blood platelet count (count/volume) 327 10*3/uL 130-400 Automated blood platelet mean volume measurement 10.1 [foz_us] 7.4-10.4 PT panel in platelet poor plasma by coagulation assay - 09/28/17 08:05 Prothrombin time (PT) in platelet poor plasma by coagulation assay 16.6 s 12.2-14.7 INR in platelet poor plasma or blood by coagulation assay 1.3 0.8-1.4 Activated partial thromboplastin time (aPTT) in platelet poor plasma bycoagulation assay - 09/28/17 08:05 Activated partial thromboplastin time (aPTT) in platelet poor plasma bycoagulation assay 43 s 24-35 Encounters ACCT No. Visit Date/Time Discharge Status Pt. Type Provider Facility Loc./Unit Complaint [id number] 01/05/2016 11:20:00 01/05/2016 13:38:00 DIS Emergency TESHA HERNANDEZ [facility] EMR [id number] 02/04/2014 10:11:00 02/04/2014 12:48:00 DIS Emergency HEAVENLY HAMPTON [facility] EMR [id number] 09/15/2013 05:50:00 09/15/2013 08:30:00 DIS Inpatient MARCY HEREDIA [facility] OPS [id number] 08/18/2013 06:00:00 08/18/2013 08:15:00 DIS Inpatient MARCY HEREDIA [facility] OPS [id number] 05/07/2015 00:00:00 Document Registration [id number] 05/07/2013 00:00:00 Document Registration [id number] 09/30/2017 05:35:00 09/30/2017 12:03:00 DIS Outpatient KARIN ALEGRIA DO [facility] PREOP BLADDER CA [id number] 09/28/2017 07:45:00 09/28/2017 13:28:00 DIS Outpatient MADELINE WONG DO [facility] RAD LIVER MASS,LUNG MASS [id number] 09/24/2017 14:06:00 09/24/2017 23:59:59 CLS Outpatient ALEKS NIÑO MD [facility] ONC [id number] 09/04/2017 06:29:00 09/04/2017 23:59:59 CLS Outpatient MADELINE WONG DO [facility] ENDO LUNG CANCER/LUNG MASS/ MEDIASTINAL LYMPHADENOPATHY, [id number] 08/31/2017 06:18:00 08/31/2017 15:54:00 DIS Outpatient MADELINE WONG DO [facility] PREOP BRONCHOSCOPY [id number] 08/04/2017 08:08:00 08/04/2017 23:59:59 CLS Outpatient MADELINE WONG DO [facility] RAD C67.9 BLADDER CANCER [id number] 07/22/2017 08:38:00 07/22/2017 23:59:59 CLS Outpatient NANCY MARTIN APRN [facility] RT FATIGUE [id number] 10/01/2017 10:35:00 PEN Preadmit KARIN ALEGRIA DO [facility] SDC BLADDER CA [id number] 07/22/2017 10:09:00 Document Registration [id number] 09/30/2017 10:18:00 ACT Unknown Nata Shepherd MD [id number] 09/14/2017 21:04:33 09/14/2017 23:59:59 DIS Outpatient CJ BAINS [facility] [id number] 09/14/2017 16:39:00 09/14/2017 23:59:59 CLS Emergency [facility] ED ed visit [id number] 07/31/2017 14:16:57 07/31/2017 23:59:59 CLS Preadmit MADELINE SHEPHERD [facility] Surgery OPS [id number] 07/14/2017 16:14:21 07/14/2017 23:59:59 CLS Preadmit MADELINE SHEPHERD [facility] Surgery Ureteroscopy w/ bx [id number] 06/28/2017 13:44:00 06/28/2017 23:59:59 CLS Emergency [facility] ED ed visit [id number] 12/22/2016 07:36:14 12/22/2016 23:59:59 DIS Outpatient MADELINE SHEPHERD [facility] RAD bladder ca, hematuria [id number] 10/17/2016 09:02:40 10/17/2016 23:59:59 CLS Preadmit Lucia Alvarez [facility] RAD intermittent claudication bilateral [id number] 06/11/2016 13:33:32 06/11/2016 23:59:59 CLS Preadmit SVETLANA MORGAN [facility] RAD ARANDA [id number] 09/22/2017 17:16:00 ACT V TESHA HERNANDEZ [facility] OBS ED VISIT [id number] 09/14/2017 20:37:11 PEN Inpatient TESHA HERNANDEZ [facility] MS Sepsis hypomagnesemia ileus alterted mental status
[2017-10-01] MEDS ORDERED: FAMOTIDINE 20MG/2ML IV (PEPCID) ONE (09:59)
[2017-10-01 10:00] VITALS: BP 179/80
[2017-10-01] MEDS ORDERED: CATHETER FLUSH 10 ML SYR IV PRN (10:00)
[2017-10-01] MEDS ORDERED: LACTATED RINGERS 1,000 ML IV PRN (10:29)
[2017-10-01] MEDS ORDERED: FAMOTIDINE 20MG/2ML IV (PEPCID) IV ONE (10:30)
--- NOTE | 2017-10-01 10:56 | Progress Note-Pre Operative ---
Pre-Operative Progress Note H&P Reviewed The H&P was reviewed, patient examined and no changes noted. Time Seen by Provider: 10:52 Date H&P Reviewed: Oct 01, 2017 Time H&P Reviewed: 10:55 Pre-Operative Diagnosis: Bladder CA, Lung mass, Venous insufficiency KARIN ALEGRIA DO Oct 01, 2017 10:56
[2017-10-01] MEDS ORDERED: LIDOCAINE/EPI 1%-1:200,000 (XYLOCAINE) 10 ML VIAL ONE (11:36)
[2017-10-01] MEDS ORDERED: HEParin (CENTRAL IV FLUSH) 500 UNIT/5 ML SYR ONE (11:36)
[2017-10-01] MEDS ORDERED: 0.9% SODIUM CHLORIDE PF INJ 20 ML VIAL ONE (11:36)
[2017-10-01] MEDS ORDERED: proPOfol 200 MG/20 ML (DIPRIVAN) VIAL IV ONE (11:55)
[2017-10-01] MEDS ORDERED: LIDOCAINE PF 2% 5 ML (XYLOCAINE) VIAL ONE ×2 (11:55→12:41)
[2017-10-01] MEDS ORDERED: MIDAZOLAM 2 MG/2 ML (VERSED) VIAL ONE (11:56)
[2017-10-01] MEDS ORDERED: fentaNYL INJECTION 100 MCG/2 ML AMP ONE (11:56)
[2017-10-01] MEDS ORDERED: DEXAMETHASONE 10 MG/ML (DECADRON) 1 ML VIAL ONE (11:59)
[2017-10-01] MEDS ORDERED: ONDANSETRON 4 MG/2 ML (SDV) Z0FRAN ONE (11:59)
--- NOTE | 2017-10-01 12:55 | Progress Note-Post Operative ---
Post-Operative Progess Note Surgeon (s)/Cdl Program Coordinator (s) Surgeon KARIN ALEGRIA DO Cdl Program Coordinator: none Pre-Operative Diagnosis Bladder CA, Lung mass, Venous insufficiency Post-Operative Diagnosis same Procedure & Operative Findings Date of Procedure 10/01/17 Procedure Performed/Findings Insertion of Erin-cath Anesthesia Type IV sedation by PROFESSOR OF RHETORIC Estimated Blood Loss Estimated blood loss (mL): less than 5ml Specimens/Packing Specimens Removed none KARIN ALEGRIA DO Oct 01, 2017 12:55
[2017-10-01] MEDS ORDERED: ACHD5005 PO ×2 (12:57)
--- NOTE | 2017-10-01 12:58 | Discharge Inst-Surgical ---
Discharge Inst-Surgical Depart Medication/Instructions New, Converted or Re-Newed RX: RX Given to Pt/Family Patient Instructions Follow up Appt: Make appointment for 1 week. Instructions: No strenuous activity. May shower in 24 hours, no tub bath or soaking. Use incentive spirometer at home as directed. No Smoking Skin/Wound Care: May remove bandages. You need to leave the Dermabond on over incision it will fall off on its own. Symptoms to Report: Appetite Changes, Extremity Discoloration, Numbness/Tingling, Swelling Increased , Bleeding Excessive, Eyesight Changes, Pain Increased, Urine Color Change, Constipation(Persistent), Fever over 101 degree F, Pain/Pressure in chest, Urinating Difficulty, Cough Up/Vomit Blood, Heart Beat Irreg/Pounding, Pain/ Pressure in jaw, vCramps in feet or legs, Lightheadedness, Pain/Pressure in shoulder, Diarrhea(Persistent), Memory Changes Suddenly, Questions/Concerns, Weight gain consecutive days, Dizziness/Fainting, Nausea/Vomiting, Shortness of Breath, Weight gain over 2 pounds If questions or concerns contact your physician Or seek help at emergency department. Activity Activity as Tolerated: Yes Activity Instructions: Avoid Stress to Incision Diet Discharge Diet: No Restrictions If Any Problems/Questions/Issu: Contact Your Physician, Go to Emergency Room Skin/Wound Care Infection Signs and Symptoms: Increased Redness, Foul Odor of Wound, Increased Drainage, Skin Itchy or Has a Rash, Increased Swelling, Temperature Above 101 F Bathing Instructions: Shower Stitches/Jam/Dermabond Dis: Dermabond Ice Pack: Ice On and Off Site KARIN ALEGRIA DO Oct 01, 2017 12:58
--- NOTE | 2017-10-01 13:04 | Anesthesia-General Post-Op ---
MAC Patient Condition Mental Status/LOC: Same as Preop Cardiovascular: Satisfactory Nausea/Vomiting: Absent Respiratory: Satisfactory Pain: Controlled Complications: Absent Post Op Complications Complications None Follow Up Care/Instructions Patient Instructions None needed. Anesthesiology Discharge Order Discharge Order Patient is doing well, no complaints, stable vital signs, no apparent adverse anesthesia problems. No complications reported per nursing. DIONNE NORRIS CRNA Oct 01, 2017 13:04
[2017-10-01 13:30] VITALS: BP 177/92
[2017-10-01 14:00] VITALS: BP_SYST 164; BP_SYST 167; BP_DIAS 78; BP_DIAS 79
--- NOTE | 2017-10-01 17:20 | Diagnostic Imaging Report ---
Portable erect AP chest at 1:04 p.m. INDICATION: Groshong catheter insertion. FINDINGS: As noted on the fluoroscopic exam performed earlier today, there has been insertion of a Groshong catheter on the right. The tip of the catheter overlies the proximal superior vena cava. There is no sign of pneumothorax on the right. The cardiomegaly seen on the prior exam of 09/04/17 is again evident and essentially no different. Both lung bases are much better aerated than on the prior exam. There is little if any residual pneumonia/atelectasis still present. The central pulmonary vascularity is not quite as prominent either. The mediastinum is not widened. The osseous structures are intact. IMPRESSION: 1. There has been insertion of a Groshong catheter on the right without apparent complication. 2. The overall appearance of the chest has improved since the prior exam as both lung bases are better aerated and there does appear to be less pulmonary congestion. Clinical followup is recommended. Dictated by: Dictated on workstation # [id number]
--- NOTE | 2017-10-01 18:37 | Diagnostic Imaging Report ---
EXAMINATION: Fluoroscopy at 12:53 p.m. INDICATION: PowerPort insertion procedure. Fluoroscopic assistance was provided for Dr. Montoya during his PowerPort insertion procedure. 16.4 seconds of fluoroscopy time was utilized. A single spot film of the thorax was obtained. There is a Port-A-Cath in place on the right with the tip overlying the mid portion of the superior vena cava. IMPRESSION: 1. Fluoroscopic assistance was provided for Dr. Montoya during his PowerPort insertion procedure. 2. A followup chest exam is pending for further evaluation. Dictated by: Dictated on workstation # [id number]
--- NOTE | 2017-10-02 01:08 | OPERATIVE REPORT ---
DATE OF SERVICE: PREOPERATIVE DIAGNOSES: 1. Bladder cancer. 2. Lung mass. 3. Venous insufficiency. POSTOPERATIVE DIAGNOSES: 1. Bladder cancer. 2. Lung mass. 3. Venous insufficiency. PROCEDURE: Port-A-Cath insertion. SURGEON: Darin Montoay DO BURN CREW MEMBER: None. ANESTHESIA: IV sedation by the PLANETARIUM SKY SHOW TECHNICIAN. BLOOD LOSS: Less than 5 mL. SPECIMENS: None. FLUIDS: Per anesthesia. POSTOPERATIVE CONDITION: Stable. INDICATION FOR PROCEDURE: The patient is a 77-year-old male who unfortunately looks to be recurrent metastatic bladder cancer with some lung masses. He also has some venous insufficiency. He needs a long-term chemotherapy and needs a port placed. FINDINGS: The patient had a Port-A-Cath placed in right anterior chest wall and right subclavian vein without any difficulty. PROCEDURE NOTE: After informed consent was obtained, the patient was brought to the operating room and placed on the operating room, placed on the table in supine position. He was sterilely prepped and draped in normal fashion. Local lidocaine was used to infiltrate the right anterior chest wall as well as towards the clavicle and then the patient was placed slightly Trendelenburg. An 18-gauge finder needle was advanced under negative inspiration, cannulated the subclavian vein on the second attempt. Good flash of blood, removed the syringe and then placed a guidewire down the needle using Seldinger technique. I had to check a couple of times because the wire kept going up into the neck. Finally, we were able to go down into the superior vena cava, confirmed with fluoroscopy. At this point, then removed the needle, held the guidewire in place with a hemostat, made a stab incision at the guidewire then #11 blade and then in the right anterior chest wall, made an incision with #11 blade, carried down through the skin into subcutaneous tissue, then deepened down the subcutaneous tissue with Bovie electrocautery down to the pectoralis major fascia and then created a pocket for the port with blunt dissection as well as with Bovie electrocautery, then tunneled the catheter from the stab incision into this pocket we had created with the tunneling device and then over the guidewire placed the dilator using the Seldinger technique, checked with fluoroscopy, was in good position down the vena cava, removed the inner portion of the dilator sheath as well as the guidewire and then placed the catheter down the dilator sheath using the Seldinger technique, checked fluoroscopy, it was in good position, removed this dilator sheath. I pulled the catheter back to the correct position and then cut off the distal portion of the catheter, attached the port and then placed the locking mechanism on. Next, I placed a Martinez needle into the port, aspirated, got a good flash of blood and then easily flushed with sterile saline. I then removed the syringe and then aspirated and then flushed with heparin, it went in easily. At this point, then placed the Port-A-Cath into the pocket and then sutured it down to the pectoralis major muscle with a 3-0 Prolene suture. I then closed the incision closing the subcutaneous tissue with 3-0 Vicryl, 2 interrupted sutures and then closed the skin with 4-0 undyed Monocryl three interrupted subcuticular stitches as well as closing the stab incision with another 4-0 undyed Monocryl a single subcuticular stitch, checked with fluoroscopy. There were no kinks. It was in good position. Area was then cleaned and dried. A dressing placed and the patient then transferred to recovery room in stable condition. Sponge, instruments, and needle counts were correct at the end of the case. A postoperative check x-ray was obtained and the port looks to be in great position. No pneumothorax seen. Job ID: [id number] DocumentID: [id number] Dictated Date: 10/01/2017 13:21:13 Mobile Home Servicer Date: 10/01/2017 23:43:39 Dictated By: DARIN MONTOYA DO
== END 2017-10-01 14:10 | disposition home or self-care (01) ==
LOC: SDC 09:33
PROVIDERS: ATTEND Surgery
DX: C67.9 Malignant neoplasm of bladder, unspecified (principal); C78.7 Secondary malignant neoplasm of liver and intrahepatic bile duct; R91.8 Other nonspecific abnormal finding of lung field; I87.2 Venous insufficiency (chronic) (peripheral); I10 Essential (primary) hypertension; E78.00 Pure hypercholesterolemia, unspecified; K21.9 Gastro-esophageal reflux disease without esophagitis; F17.210 Nicotine dependence, cigarettes, uncomplicated; G47.33 Obstructive sleep apnea (adult) (pediatric); F32.9 Major depressive disorder, single episode, unspecified; F41.9 Anxiety disorder, unspecified; Z85.528 Personal history of other malignant neoplasm of kidney; Z79.02 Long term (current) use of antithrombotics/antiplatelets; Z79.82 Long term (current) use of aspirin; Z79.899 Other long term (current) drug therapy; Z90.5 Acquired absence of kidney
CPT/HCPCS: 71045